=== PATIENT | male | born 1960 | race Caucasian/White ===

== ENCOUNTER 2018-10-17 09:26 | Observation (INO) | payer BC ==
[2018-10-17] MEDS ORDERED: Nitroglycerin 0.4 MG TAB (25 Tab Bottle) ONE (09:54)
[2018-10-17 10:09] LABS: #Basophils 0.1 thou/uL (0.0-0.2); #Eosinphils 0.6 thou/uL (0.0-0.7); #Lymphocytes 1.9 thou/uL (1.20-3.40); #Monocytes 1.2 thou/uL (0.11-0.59); #Neutrophils 5.9 thou/uL (1.40-6.50); %Basophils 0.8 % (0.0-1.0); %Eosinophils 6.5 % (0.0-10.0); %Lymphocytes 19.7 % (21.0-51.0); %Monocytes 12.5 % (0.0-10.0); %Neutrophils 60.5 % (42.0-75.0); Hemoglobin 15.1 g/dL (14.0-18.0); Mean Corpuscular HGB CONC 34.5 g/dL (32.0-36.0); Mean Corpuscular Hemoglobin 29.5 pg (27.0-31.0); Mean Corpuscular Volume 85.5 fL (78.0-98.0); Mean Platelet Volume 7.3 fL (7.4-10.4); Platelet Count 187 thou/uL (130-400); RBC Distribution Width 11.5 % (11.5-14.5); Red Blood Cell (RBC) Count 5.12 mill/uL (4.70-6.10); White Blood Cell (WBC) Count 9.7 thou/uL (4.8-10.8)
--- NOTE | 2018-10-17 10:28 | RAD ---
PORTABLE UPRIGHT CHEST RADIOGRAPH: DATE: 10/17/2018. COMPARISON: 04/29/2016. HISTORY: Chest pain. FINDINGS: Thee is an old fracture of the left clavicle with prominent callus formation. There is a dual-lead t ransvenous pacing device inserted via left subclavian approach with leads overlying the region of the right atrium and the right ventricle. There is no pneumothorax, pleural fluid, focal consolidation, or alveolar edema. IMPRESSION: No acute findings. POS: TALAT
[2018-10-17 10:29] LABS: ALT (SGPT) 25 U/L (8-55); AST (SGOT) 22 U/L (5-34); Albumin 4.3 g/dL (3.5-5.0); Alkaline Phosphatase 101 U/L (40-150); Anion Gap 11 mmol/L (10-20); BUN (Urea Nitrogen) 20 mg/dL (8.4-25.7); Bilirubin, Total 1.1 mg/dL (0.2-1.2); CK (CPK) 305 U/L (30-200); Calc. Creatinine Clearance 0 mL/min (70-130); Calcium 10.4 mg/dL (7.8-10.44); Carbon Dioxide 24 mmol/L (22-29); Chloride 109 mmol/L (98-107); Estimated GFR-MDRD 82; Globulin 2.6 g/dL (2.4-3.5); Glucose 116 mg/dL (70-105); Potassium 4.5 mmol/L (3.5-5.1); Protein, Total 6.9 g/dL (6.0-8.3); Sodium 139 mmol/L (136-145)
[2018-10-17 10:33] LABS: CKMB 4.3 ng/mL (0-6.6); Troponin I Less than 0.010 ng/mL (< 0.028)
[2018-10-17 15:39] LABS: Troponin I Less than 0.010 ng/mL (< 0.028)
[2018-10-17] MEDS ORDERED: Nitroglycerin 0.4 MG TAB (25 Tab Bottle) PO PRN (16:31)
[2018-10-17] MEDS ORDERED: Calcium Carbonate 500 MG ChewTAB PO PRN (16:31)
[2018-10-17] MEDS ORDERED: Eucerin (Mineral Oil/Petrolatum,White) 30 gm Jar TOP PRN (16:31)
[2018-10-17] MEDS ORDERED: Ondansetron ODT 4 MG TAB PO PRN (16:31)
[2018-10-17] MEDS ORDERED: Bisacodyl 10 MG SUPP PR PRN (16:31)
[2018-10-17] MEDS ORDERED: Acetaminophen 325 MG TAB PO PRN (16:31)
[2018-10-17] MEDS ORDERED: Senokot S 8.6-50 MG TAB PO PRN (16:31)
[2018-10-17] MEDS ORDERED: Cepastat Lozenges 1 LOZ PO PRN (16:31)
[2018-10-17] MEDS ORDERED: Zolpidem Tartrate 5 MG TAB PO PRN (16:31)
[2018-10-17] MEDS ORDERED: Artificial Tears 18 DROP/0.9 ML EA EYE PRN (16:31)
[2018-10-17] MEDS ORDERED: Sodium Chloride 0.65% Nasal 44 ML BOT EA NARE PRN (16:31)
[2018-10-17] MEDS ORDERED: Loratadine 10 MG TAB PO PRN (16:31)
[2018-10-17] MEDS ORDERED: Loperamide HCl 2 MG CAP PO PRN (16:31)
[2018-10-17] MEDS ORDERED: hydrALAZINE 20 MG/ML VIAL SLOW IVP PRN (16:31)
[2018-10-17] MEDS ORDERED: Ondansetron PF 4 MG/2 ML Vial IVP PRN (16:31)
[2018-10-17] MEDS ORDERED: Bisacodyl 5 MG TAB PO PRN (16:31)
[2018-10-17] MEDS ORDERED: Diabetic Tussin 200 MG/10 ML UDCUP PO PRN (16:31)
[2018-10-17 17:06] VITALS: BMI 31.6
--- NOTE | 2018-10-17 18:04 | HP ---
PRIMARY CARE PHYSICIAN: Marcus Chaparro MD REASON FOR ADMISSION: Chest pain. HISTORY OF PRESENT ILLNESS: A 58-year-old with past medical history of mild coronary artery disease, hypertension, who presented to the emergency room with a complaint of 1-week history of intermittent chest pain. He describes chest pain on left side 9/10 in intensity associated with nausea, vomiting, and shortness of breath. He denies any associated diaphoresis. Each time, he does not get a nausea and vomiting, but his associated symptoms is variable. He also reports that association with food, respiration on activity is also variable. Sometimes, he gets chest pain with radiation and sometimes without. He does not have any consistent pattern of chest pain. This patient denies any associated palpitation or dizziness. He was having diarrhea this morning. He denies any syncope. He denies any exertion related chest pain, palpitation, or shortness of breath. The patient reports that at normal pace, he is able to walk without any limitation. He cannot do any faster walking because of arthritis in his knee. He denies any orthopnea, PND, or leg swelling. The patient was given nitroglycerin and that helped his pain from 9 to 2 intensity of pain. When I saw this patient in the emergency room, he was completely chest pain free. He denies any fever. He denies any cough. He denies any flu-like symptoms. He denies any musculoskeletal pain. REVIEW OF SYSTEMS: CONSTITUTIONAL: Negative for weight loss or gain, ability to conduct usual activities. SKIN: Negative for rash, itching. EYES: Negative for double vision, pain. ENT/MOUTH: Negative for nose bleeding, neck stiffness, pain, tenderness. CARDIOVASCULAR: Negative for palpitations, dyspnea on exertion, orthopnea. RESPIRATORY: Negative for shortness of breath, wheezing, cough, hemoptysis, fever or night sweats. GASTROINTESTINAL: Negative for poor appetite, abdominal pain, heartburn, nausea, vomiting, constipation, or diarrhea. GENITOURINARY: Negative for urgency, frequency, dysuria, nocturia. MUSCULOSKELETAL: Negative for pain, swelling. NEUROLOGIC/PSYCHIATRIC: Negative for anxiety, depression. ALLERGY/IMMUNOLOGIC: Negative for skin rash, bleeding tendency. Please see my HPI for pertinent positive and negative. All other review of system reviewed and negative except as mentioned in HPI. PAST MEDICAL HISTORY: History of hypertension, history of atrial arrhythmia required pacemaker, history of tobacco abuse disorder, mild coronary artery disease, history of GI bleed in past, emphysema, and dyslipidemia. PAST SURGICAL HISTORY: The patient had right total knee replacement. The patient also had shoulder surgery, upper endoscopy, cardiac catheterization, and pacemaker. PAST PSYCHIATRIC HISTORY: Reviewed and negative. FAMILY HISTORY: Positive for coronary artery disease among several family members. No family history of cancer. SOCIAL HISTORY: The patient is occasional smoker. He used to be very heavy smoker 3 big pack per day, but since diagnosis of coronary artery disease, he tried to cut down and now he smokes only on weakened. He also drinks alcohol on weakened. He denies any other illicit drug abuse. He is . Lives at home with family. ALLERGIES: CODEINE. CURRENT HOME MEDICATIONS: 1. Bupropion 150 mg twice daily. 2. Flecainide 50 mg twice daily. 3. Lisinopril 10 mg daily. 4. Aspirin 81 mg twice daily. 5. Venlafaxine 150 mg p.o. daily. 6. Imdur 30 daily. 7. Naproxen p.r.n. basis. 8. Tylenol p.r.n. basis. EMERGENCY ROOM COURSE: The patient is given aspirin and nitroglycerin. PAST PSYCHIATRIC HISTORY: Anxiety, depression, bipolar disorder, and posttraumatic stress disorder. PHYSICAL EXAMINATION: VITAL SIGNS: Currently in the emergency room, blood pressure 115/77, pulse 83, respiratory rate 20, temperature 97.5, and saturation 94% on room air. Weight 108.8 kg. GENERAL: The patient is currently alert, awake, in no obvious acute distress. HEENT: Head, normocephalic atraumatic. Eyes; pupils are round and reactive to light. Extraocular muscles intact. ENT; Oropharynx within normal limit. Moist mucous membrane. No oral lesion. No pharyngeal erythema. No exudate. NECK: Supple. No JVD. No thyromegaly. No carotid bruits. No jugular venous distention. LUNGS: Clear to auscultation without any rhonchi or rales. CARDIAC: S1 and S2, regular. No murmur. No gallop. No rub. ABDOMEN: Soft. Bowel sounds present. Nontender, nondistended. No organomegaly. No mass. No suprapubic tenderness. BACK: Unremarkable. No CVA tenderness. EXTREMITIES: Upper extremity; passive movement of all joints are normal. Lower extremity; no edema. Good distal pulsation. SKIN: No skin rash. HEMATOLOGICAL SYSTEM: No lymphadenopathy. PSYCHIATRIC: Normal affect. SIGNIFICANT LABORATORY DATA: EKG showing normal sinus rhythm without any acute ischemic changes. Chest x-ray based on my review, no acute cardiopulmonary process. CBC; WBC 9.7, hemoglobin 15.1, and platelet 187. BMP; sodium 139, potassium 4.5, chloride 109, carbon dioxide 24, BUN 20, creatinine 0.94, glucose 116, and calcium 10.4. LFT; AST 22, ALT 25, alkaline phosphatase 101, and albumin 4.3. Cardiac enzymes negative. ASSESSMENT AND PLAN: 1. Chest pain. The patient's chest pain description is atypical. His EKG is not showing any ischemic changes and his cardiac enzymes are negative despite his chest pain recurrent for 1 week, most likely this patient has atypical chest discomfort. We need to rule out cardiac etiology and that is why he will need risk stratification with pharmacological stress test. This patient cannot do treadmill stress test because of arthritis and we need nuclear imaging because he has underlying pacemaker. This patient will have lipid profile checked tomorrow for further risk stratification. Meanwhile, we will continue aspirin 325 mg p.o. daily, nitroglycerin 0.4 mg sublingual p.r.n., and nitroglycerin patch q.8 hourly. If blood pressure permits, healthy lifestyle measure discussed with the patient. Depending upon stress test result, we will decide whether Cardiology needs to be consulted or not. If stress test is negative, then we will consider discharging him home tomorrow. 2. History of atrial arrhythmia with pacemaker. The patient is requesting to interrogate his pacemaker because he did not have any pacemaker checked for a period of time. We will call [employer] for his pacemaker interrogation. 3. Hypertension, currently well controlled. We will continue the patient's blood pressure medication while in the hospital after confirmation of his dose including lisinopril and Imdur. 4. History of arrhythmia. It is unclear whether he is still taking flecainide. Once we confirm his home medications, then we will continue this medication as well. 5. Anxiety and depression. Continue the patient's home medication, bupropion and venlafaxine after confirmation. 6. Tobacco abuse and alcohol abuse. Sound counseling given to avoid smoking and alcohol abuse. Healthy lifestyle measure discussed with the patient. 7. Deep venous thrombosis prophylaxis, not needed because we are expecting discharge in 24 hour. 8. Gastrointestinal prophylaxis, Pepcid 20 mg p.o. b.i.d. 9. Code status: The patient is full code. The patient's is surrogate decision making. 10. Disposition plan: Based on clinical course likely within 24 hours pending stress test result. Plan of care extensively discussed with the patient in detail. Job ID: [id number]
[2018-10-17 18:40] LABS: Troponin I Less than 0.010 ng/mL (< 0.028)
[2018-10-17] MEDS: HYDROcodone/Acetaminophen 5/325 mg Tablet PO PRN (19:53)
[2018-10-17] MEDS: Flecainide 50 MG TAB PO SCH (20:00)
[2018-10-17] MEDS: Bupropion 150 MG SR TAB PO SCH (20:00)
[2018-10-17] MEDS: Famotidine 20 MG TAB PO SCH (20:00)
[2018-10-17] MEDS: Lisinopril 10 MG TAB PO SCH (20:01)
[2018-10-17] MEDS: Nitroglycerin 2% Ointment 1 INCH/1 GM Packet TOP SCH (20:02)
[2018-10-17] MEDS ORDERED: Atorvastatin Calcium 40 MG TAB PO SCH (21:00)
[2018-10-18 05:52] LABS: Cardiac Risk 5.9 (Less than 4.5)
[2018-10-18] MEDS: Nitroglycerin 2% Ointment 1 INCH/1 GM Packet TOP SCH ×2 (06:56→14:17)
[2018-10-18] MEDS ORDERED: Aspirin 325 MG TAB PO SCH (09:00)
[2018-10-18] MEDS ORDERED: Aspirin 81 mg Enteric Coated Tablet PO SCH (09:00)
[2018-10-18] MEDS ORDERED: Venlafaxine HCl XR 150 MG CAP PO SCH (09:00)
--- NOTE | 2018-10-18 09:14 | PDOC.PN ---
- Subjective Encounter Start Date: 10/18/18 Encounter Start Time: 07:00 -: old records requested/rev Patient seen and examined. No new complaints. No overnight events - Objective Resuscitation Status - Order Detail: 10/17/18 15:14 Resuscitation Status Routine Resuscitation Status: FULL: Full Resuscitation MAR Reviewed: Yes Vital Signs & Weight: Vital Signs (12 hours) Temp Pulse Resp BP Pulse Ox 10/18/18 07:53 97.9 F 91 20 149/90 H 95 10/18/18 04:46 97.8 F 89 16 133/92 H 95 Weight Weight 240 lb 3.2 oz I&O: 10/17/18 10/18/18 10/19/18 06:59 06:59 06:59 Intake Total 440 Output Total 150 Balance 290 Result Diagrams: 10/17/18 09:49 10/17/18 09:49 Phys Exam - Physical Examination Constitutional: NAD HEENT: PERRLA, moist MMs, sclera anicteric Neck: no JVD, supple Respiratory: no wheezing, no rales, no rhonchi Cardiovascular: RRR, no significant murmur, no rub Gastrointestinal: soft, non-tender, no distention, positive bowel sounds Musculoskeletal: no edema, pulses present Neurological: non-focal, normal sensation, moves all 4 limbs Lymphatic: no nodes Psychiatric: normal affect, A&O x 3 Skin: no rash, normal turgor Dx/Plan (1) Chest pain Code(s): R07.9 - CHEST PAIN, UNSPECIFIED Status: Acute (2) Anxiety and depression Code(s): F41.9 - ANXIETY DISORDER, UNSPECIFIED; F32.9 - MAJOR DEPRESSIVE DISORDER, SINGLE EPISODE, UNSPECIFIED Status: Chronic (3) CAD (coronary artery disease) Code(s): I25.10 - ATHSCL HEART DISEASE OF [place] CORONARY ARTERY W/O ANG PCTRS Status: Chronic (4) Dyslipidemia Code(s): E78.5 - HYPERLIPIDEMIA, UNSPECIFIED Status: Chronic (5) HTN (hypertension) Code(s): I10 - ESSENTIAL (PRIMARY) HYPERTENSION Status: Chronic (6) Obesity (BMI 30.0-34.9) Code(s): E66.9 - OBESITY, UNSPECIFIED Status: Chronic (7) Tobacco abuse Code(s): Z72.0 - TOBACCO USE Status: Chronic - Plan cont current plan of care * today stress test, if negative will dc to home * continue home medication * medication reviewed as below * symptomatic treatment. Review of Systems - Review of Systems ENT: negative: Ear Pain, Ear Discharge, Nose Pain, Nose Discharge, Nose Congestion, Mouth Pain, Mouth Swelling, Throat Pain, Throat Swelling, Other Respiratory: negative: Cough, Dry, Shortness of Breath, Hemoptysis, SOB with Excertion, Pleuritic Pain, Sputum, Wheezing Cardiovascular: negative: chest pain, palpitations, orthopnea, paroxysmal nocturnal dyspnea, edema, light headedness, other Gastrointestinal: negative: Nausea, Vomiting, Abdominal Pain, Diarrhea, Constipation, Melena, Hematochezia, Other Genitourinary: negative: Dysuria, Frequency, Incontinence, Hematuria, Retention , Other Musculoskeletal: negative: Neck Pain, Shoulder Pain, Arm Pain, Back Pain, Hand Pain, Leg Pain, Foot Pain, Other Skin: negative: Rash, Lesions, Edson, Bruising, Other - Medications/Allergies Allergies/Adverse Reactions: Allergies Allergy/AdvReac Type Severity Reaction Status Date / Time No Known Allergies Allergy Verified 04/30/16 10:35 Medications: Current Medications Acetaminophen (Tylenol) 650 mg PO Q4H PRN PRN Reason: Headache/Fever/Mild Pain (1-3) Hydrocodone Bitart/Acetaminophen ([place] 5/325) 1 tab PO Q4H PRN PRN Reason: Moderate Pain (4-6) Last Admin: 10/17/18 19:53 Dose: 1 tab Artificial Tears (Tears Naturale) 2 drop EA EYE PRN PRN PRN Reason: Dry Eyes Aspirin (Aspirin) 325 mg PO DAILY [facility] Aspirin (Ecotrin) 81 mg PO DAILY [facility] Atorvastatin Calcium (Lipitor) 40 mg PO HS [facility] Last Admin: 10/17/18 20:00 Dose: 40 mg Bisacodyl (Dulcolax) 10 mg PO DAILYPRN PRN PRN Reason: Constipation Bisacodyl (Dulcolax) 10 mg DC DAILYPRN PRN PRN Reason: Constipation Bupropion HCl (Wellbutrin Sr) 150 mg PO BID [facility] Last Admin: 10/17/18 20:00 Dose: 150 mg Calcium Carbonate (Tums) 1,000 mg PO Q4H PRN PRN Reason: Heartburn or Indigestion Famotidine (Pepcid) 20 mg PO BID [facility] Last Admin: 10/17/18 20:00 Dose: 20 mg Flecainide Acetate (Tambocor) 50 mg PO BID [facility] Last Admin: 10/17/18 20:00 Dose: 50 mg Guaifenesin (Robitussin Sf) 200 mg PO Q4H PRN PRN Reason: Cough Hydralazine HCl (Apresoline) 10 mg SLOW IVP Q4H PRN PRN Reason: SBP > 180 and HR < 70 Lisinopril (Zestril) 10 mg PO BID [facility] Last Admin: 10/17/18 20:01 Dose: 10 mg Loperamide HCl (Imodium) 2 mg PO PRN PRN PRN Reason: Diarrhea/Loose Stools Loratadine (Claritin) 10 mg PO DAILYPRN PRN PRN Reason: Sinus Symptoms Mineral Oil/White Petrolatum (Eucerin Cream) 0 gm TOP BIDPRN PRN PRN Reason: Dry Skin Nitroglycerin (Nitrostat) 0.4 mg PO Q5MIN PRN PRN Reason: Chest Pain Nitroglycerin (Nitro-Bid 2% Ointment) 0.5 inch TOP Q8HR [facility] Last Admin: 10/18/18 06:56 Dose: Not Given Ondansetron HCl (Zofran Odt) 4 mg PO Q6H PRN PRN Reason: Nausea/Vomiting Ondansetron HCl (Zofran) 4 mg IVP Q6H PRN PRN Reason: Nausea/Vomiting Senna/Docusate Sodium (Senokot S) 2 tab PO BID PRN PRN Reason: Constipation Sodium Chloride ([place] Nasal [place] 0.65%) 0 ml EA NARE QIDPRN PRN PRN Reason: Nasal Congestion Throat Lozenges (Cepastat Lozenges) 1 alfredo PO Q2H PRN PRN Reason: Sore Throat Venlafaxine HCl (Effexor Xr) 150 mg PO DAILY [facility] Zolpidem Tartrate (Ambien) 5 mg PO HSPRN PRN PRN Reason: Insomnia
[2018-10-18] MEDS: Famotidine 20 MG TAB PO SCH (10:38)
[2018-10-18] MEDS: Lisinopril 10 MG TAB PO SCH (10:38)
[2018-10-18] MEDS: Flecainide 50 MG TAB PO SCH (10:39)
[2018-10-18] MEDS: Bupropion 150 MG SR TAB PO SCH (10:39)
[2018-10-18] MEDS: HYDROcodone/Acetaminophen 5/325 mg Tablet PO PRN (11:05)
--- NOTE | 2018-10-18 11:37 | NM ---
MYOCARDIAL PERFUSION EVALUATION: DATE: 10/18/18 INDICATION: History of chest pain and heart catheterization in 2016. Patient also has history of arrhythmia with pacemaker, hypertension, smoking, dyslipidemia, and family history of coronary artery disease. RADIOPHARMACEUTICAL: 30 mCi technetium-99m sestamibi IV was utilized with stress and 9.9 mCi technetium-99m sestamibi IV w as utilized with rest. FINDINGS: When comparing the rest and stress images, no reversible myocardial perfusion defect is evident. Ther e is normal wall motion and thickening. The estimated LVEF is 64%. IMPRESSION: No scintigraphic evidence of reversible myocardial ischemia. POS: TALAT
[2018-10-18 12:08] VITALS: BP 124/69; TEMP 98.1
--- NOTE | 2018-10-19 08:01 | DIS ---
DATE OF ADMISSION: 10/17/2018 DATE OF DISCHARGE: 10/18/2018 PRIMARY CARE PHYSICIAN: Marcus Chaparro MD. DISCHARGE DISPOSITION: Home. PRIMARY DISCHARGE DIAGNOSIS: Chest pain, ruled out acute coronary syndrome. SECONDARY DISCHARGE DIAGNOSES: 1. Anxiety and depression. 2. Coronary artery disease. 3. Dyslipidemia. 4. Obesity with BMI 31. 5. Tobacco abuse disorder. 6. History of pacemaker. PRIMARY PROCEDURE/OPERATION: None. RADIOLOGICAL INVESTIGATIONS: Stress test normal. Chest x-ray normal. SIGNIFICANT LABS: Hemoglobin 15.1. Creatinine 0.94. LDL 169. Cardiac enzyme negative. DISCHARGE MEDICATIONS: 1. Aspirin 81 mg p.o. daily. 2. Wellbutrin SR 150 mg p.o. b.i.d. 3. Tambocor 50 mg p.o. b.i.d. 4. Lisinopril 10 mg p.o. b.i.d. 5. Coenzyme Q10 one capsule daily. 6. Effexor XR 150 mg p.o. daily. 7. Lipitor 40 mg p.o. daily. 8. Imdur 30 mg p.o. daily. CONTRAINDICATION: None. CODE STATUS: Full code. INPATIENT SOA ARCHITECT: None. ALLERGIES: NO KNOWN DRUG ALLERGY. DISCHARGE PLAN: Posthospital, the patient will follow up with primary care physician in 1 week. HOSPITAL COURSE: A 58-year-old male, who was admitted by me. Please see my HPI for more details. The patient was admitted for chest pain. He was under observation status. He had all negative cardiac enzyme. His telemetry remained unremarkable. His LDL was elevated, and that is why we provided dietary education. He underwent stress test, which was negative for any ischemia. We continued all his previous medication. We advised him to avoid ibuprofen because our suspicion for his pain is possibly gastroesophageal reflux disease, and we advised him to take [id number] Pepcid, Prilosec, or Nexium. The patient is seen and examined at bedside today. Test result was discussed with him in detail. The patient is medically stable for discharge today. Job ID: [id number]
--- NOTE | 2018-10-20 12:24 | STRESS ---
Acquisition Time: 2018-10-18 09:14:33 Total Exercise Time: 00:04:00 Test Indications: CHEST PAIN Medications: Protocol: ADENOSINE Max HR: 090 BPM 56% of Pred: 160 BPM Max BP: 132/090 mmHG Max Work Load: 1.0 METS RESTING ECG: NORMAL SINUS RHYTHM AT 74 BPM WITH LEFT AXIS DEVIATION AND POOR R-WAVE PROGRESSION SYMPTOMS: SHORTNESS OF BREATH NORMAL BP RESPONSE ECTOPY: NONE ECG STRESS: NO SIGNIFICANT CHANGES INTERPRETATION: AWAIT NUCLEAR IMAGES FOR DEFINITIVE DIAGNOSIS Confirmed by MAYELA ARIAS ([id number]), purchasing expeditor KELIN DOVE ([id number]) on 10/20/2018 12:23:52 PM Referred By: MD Vashti MCCLELLAN Confirmed By:MAYELA ARIAS
== END 2018-10-18 16:00 | disposition home or self-care (01) ==
LOC: ERS 09:26 → INTOOBSV 14:15 → 2SW 14:15
PROVIDERS: ADMIT Internal Medicine; ATTEND Internal Medicine
DX: R07.89 Other chest pain (principal); I10 Essential (primary) hypertension; F41.8 Other specified anxiety disorders; E78.5 Hyperlipidemia, unspecified; E66.9 Obesity, unspecified; Z79.82 Long term (current) use of aspirin; Z79.899 Other long term (current) drug therapy; Z88.5 Allergy status to narcotic agent; Z68.31 Body mass index [BMI] 31.0-31.9, adult; Z95.0 Presence of cardiac pacemaker
CPT/HCPCS: 36415; 71045; 78452; 80053; 80061; 82553; 84484; 85025; 87804; 93005; 93017; A9500; G0378; J0153

== ENCOUNTER 2019-07-18 07:05 | Emergency (ER) | payer BC ==
[2019-07-18] MEDS ORDERED: Ketorolac Tromethamine 30 MG/ML VIAL ONE (07:35)
[2019-07-18] MEDS ORDERED: Ketorolac Tromethamine 30 MG/ML VIAL IM SCH (07:45)
[2019-07-18] MEDS ORDERED: Colchicine 0.6 MG TAB PO SCH (07:45)
== END 2019-07-18 08:21 | disposition home or self-care (01) ==
LOC: ERS 07:05
DX: M10.9 Gout, unspecified (principal); I10 Essential (primary) hypertension; F43.10 Post-traumatic stress disorder, unspecified; F31.9 Bipolar disorder, unspecified; F17.210 Nicotine dependence, cigarettes, uncomplicated; I49.9 Cardiac arrhythmia, unspecified
CPT/HCPCS: 96372; 99283; J1885

== ENCOUNTER 2019-09-02 10:48 | Emergency (ER) | payer BC ==
[2019-09-02 11:54] LABS: Hemoglobin 15.6 g/dL (14.0-18.0); Mean Corpuscular HGB CONC 33.6 g/dL (32.0-36.0); Mean Corpuscular Hemoglobin 29.7 pg (27.0-31.0); Mean Corpuscular Volume 88.1 fL (78.0-98.0); Mean Platelet Volume 7.3 fL (7.4-10.4); Platelet Count 147 thou/uL (130-400); Red Blood Cell (RBC) Count 5.28 mill/uL (4.70-6.10)
--- NOTE | 2019-09-02 12:03 | RAD ---
FRONTAL RADIOGRAPH CHEST PORTABLE UPRIGHT: Date: 09/02/19 COMPARISON: 10/17/18. HISTORY: Body aches with facial swelling. FINDINGS: Stable old left clavicle fracture and stable dual lead transvenous pacing device. No pneumothorax or pleural fluid. No focal consolidation or alveolar edema. IMPRESSION: No acute findings. Stable appearance of chest. POS: TPC
[2019-09-02 12:22] LABS: Anion Gap 13 mmol/L (10-20); BUN (Urea Nitrogen) 20 mg/dL (8.4-25.7); Calc. Creatinine Clearance 0 mL/min (70-130); Carbon Dioxide 22 mmol/L (23-31); Chloride 104 mmol/L (98-107); Estimated GFR-MDRD 82; Glucose 121 mg/dL (80-115); Potassium 3.8 mmol/L (3.5-5.1); Sodium 135 mmol/L (136-145)
[2019-09-02 12:23] LABS: ALT (SGPT) 25 U/L (8-55); AST (SGOT) 23 U/L (5-34); Albumin 4.1 g/dL (3.4-4.8); Alkaline Phosphatase 85 U/L (40-110); Globulin 3.4 g/dL (2.4-3.5); Protein, Total 7.5 g/dL (5.8-8.1)
[2019-09-02 12:29] LABS: Bacteria/HPF None Seen HPF (None Seen); Bilirubin Negative (Negative); Blood, Urine Trace (Negative); Clarity Clear (Clear); Glucose, Urine (Dipstick) Normal (Negative); Leukocyte Negative Leu/uL (Negative); Nitrite Negative (Negative); Protein, Urine (Dipstick) 20 mg/dL (Neg-Trace); Squamous Epithelial 0-3 HPF (0-3)
[2019-09-02 12:38] LABS: Band 13 % (5-11); Lymphocytes 15 % (21-51); MDiff Complete? YES; Monocytes 11 % (0-10); Neutrophil 55 % (42-75); RBC Morphology Normal; Reactive Lymphocytes 5 % (0-10)
== END 2019-09-02 13:44 | disposition home or self-care (01) ==
LOC: ERS 10:48
DX: J01.90 Acute sinusitis, unspecified (principal); R65.10 Systemic inflammatory response syndrome (SIRS) of non-infectious origin without acute organ dysfunction; I49.9 Cardiac arrhythmia, unspecified; I10 Essential (primary) hypertension; F43.10 Post-traumatic stress disorder, unspecified; F31.9 Bipolar disorder, unspecified; F17.210 Nicotine dependence, cigarettes, uncomplicated; Z79.899 Other long term (current) drug therapy
CPT/HCPCS: 36415; 71045; 80053; 81003; 81015; 83605; 85025; 87040; 87086; 87149; 96365; 96366; J1956

== ENCOUNTER 2019-10-19 12:30 | Emergency (ER) | payer BC ==
[2019-10-19] MEDS ORDERED: traMADol HCl 50 MG TAB ONE (14:17)
--- NOTE | 2019-10-19 14:31 | RAD ---
LEFT FOOT 3 VIEWS: HISTORY: Left foot pain. FINDINGS/IMPRESSION: No fracture, subluxation, or bony destruction is seen. There are plantar and posterior calcaneal spu rs. POS: LAH
--- NOTE | 2019-10-19 14:31 | RAD ---
XR Hip Lt 2-3 View INDICATION: Chronic left hip pain COMPARISON: None FINDINGS: Bones: No acute fracture or subluxation seen involving the left hip. Hip joint: Mild left hip osteoarthrosis. SI joints and symphysis pubis: Curvilinear lucency involving inferior pubic ramus on the right is lik jim projectional in nature. No definite fracture is evident. Intrapelvic contents: Visualized bowel gas pattern is within normal limits. Surrounding soft tissues: Radiographically normal. IMPRESSION: 1. Mild left hip osteoarthrosis.
== END 2019-10-19 15:38 | disposition home or self-care (01) ==
LOC: ERS 12:30
DX: M16.12 Unilateral primary osteoarthritis, left hip (principal); M79.672 Pain in left foot; I10 Essential (primary) hypertension; Z87.891 Personal history of nicotine dependence; F31.9 Bipolar disorder, unspecified; F43.10 Post-traumatic stress disorder, unspecified; Z79.899 Other long term (current) drug therapy

== ENCOUNTER 2019-11-14 03:35 | Emergency (ER) | payer BC ==
--- NOTE | 2019-11-14 07:43 | RAD ---
EXAM: 3 views of the left ankle HISTORY: Ankle pain after fall COMPARISON: None FINDINGS: 3 views of the left ankle shows no evidence of acute fracture or dislocation. Moderate diff use soft tissue swelling is seen. No degenerative changes are present. IMPRESSION: No evidence of acute osseous abnormality.
== END 2019-11-14 04:40 | disposition home or self-care (01) ==
LOC: ERS 03:35
DX: S93.402A Sprain of unspecified ligament of left ankle, initial encounter (principal); I49.9 Cardiac arrhythmia, unspecified; I10 Essential (primary) hypertension; F31.9 Bipolar disorder, unspecified; F43.10 Post-traumatic stress disorder, unspecified; F17.210 Nicotine dependence, cigarettes, uncomplicated; Z79.899 Other long term (current) drug therapy; W18.2XXA Fall in (into) shower or empty bathtub, initial encounter

== ENCOUNTER 2019-11-15 16:22 | Emergency (ER) | payer BC ==
[2019-11-15 18:50] LABS: #Basophils 0.1 thou/uL (0.0-0.2); #Eosinphils 0.7 thou/uL (0.0-0.7); #Lymphocytes 2.4 thou/uL (1.20-3.40); #Neutrophils 3.4 thou/uL (1.40-6.50); %Basophils 1.1 % (0.0-1.0); %Eosinophils 8.9 % (0.0-10.0); %Lymphocytes 31.7 % (21.0-51.0); %Monocytes 13.4 % (0.0-10.0); %Neutrophils 44.8 % (42.0-75.0); Hemoglobin 13.4 g/dL (14.0-18.0); Mean Corpuscular HGB CONC 35.3 g/dL (32.0-36.0); Mean Corpuscular Hemoglobin 29.5 pg (27.0-31.0); Mean Corpuscular Volume 83.7 fL (78.0-98.0); Mean Platelet Volume 7.8 fL (7.4-10.4); Platelet Count 150 thou/uL (130-400); RBC Distribution Width 12.4 % (11.5-14.5); Red Blood Cell (RBC) Count 4.53 mill/uL (4.70-6.10); White Blood Cell (WBC) Count 7.6 thou/uL (4.8-10.8)
[2019-11-15] MEDS ORDERED: Lidocaine 1% (PF) 30 ML VIAL ONE (18:59)
[2019-11-15 19:11] LABS: ALT (SGPT) 21 U/L (8-55); AST (SGOT) 24 U/L (5-34); Albumin 3.9 g/dL (3.4-4.8); Alkaline Phosphatase 114 U/L (40-110); Anion Gap 12 mmol/L (10-20); BUN (Urea Nitrogen) 19 mg/dL (8.4-25.7); Bilirubin, Total 0.6 mg/dL (0.2-1.2); Calc. Creatinine Clearance 0 mL/min (70-130); Calcium 9.8 mg/dL (7.8-10.44); Carbon Dioxide 23 mmol/L (23-31); Chloride 110 mmol/L (98-107); Estimated GFR-MDRD 76; Globulin 2.6 g/dL (2.4-3.5); Glucose 103 mg/dL (80-115); Potassium 3.8 mmol/L (3.5-5.1); Protein, Total 6.5 g/dL (5.8-8.1); Sodium 141 mmol/L (136-145)
--- NOTE | 2019-11-15 19:47 | ULT ---
LEFT LOWER EXTREMIT VENOUS ULTRASOUND: History: Left lower extremity edema. Technique: Multiplanar grayscale and color doppler images are performed in a left lower extremity kierra ous ultrasound. Spectral analysis with doppler waveforms were performed. FINDINGS: The left common femoral vein, profunda femoral vein, superficial femoral vein, and popliteal vein are normal in appearance without visible thrombus. These vessels demonstrate normal compression, flow, a nd augmentation. The posterior tibial vein and greater saphenous vein are also patent. IMPRESSION: No evidence of DVT. POS: C
== END 2019-11-15 20:01 | disposition home or self-care (01) ==
LOC: ERS 16:22
DX: M25.572 Pain in left ankle and joints of left foot (principal); G89.29 Other chronic pain; I49.9 Cardiac arrhythmia, unspecified; I10 Essential (primary) hypertension; F31.9 Bipolar disorder, unspecified; F43.10 Post-traumatic stress disorder, unspecified; F17.210 Nicotine dependence, cigarettes, uncomplicated; Z79.899 Other long term (current) drug therapy
CPT/HCPCS: 20605; 36415; 80053; 85025; 85379; 85652; 86140; 87070; 87205; J2001

== ENCOUNTER 2019-12-08 14:11 | Inpatient (IN) | payer BC ==
[2019-12-08 14:49] LABS: #Basophils 0.1 thou/uL (0.0-0.2); #Eosinphils 0.5 thou/uL (0.0-0.7); #Lymphocytes 2.1 thou/uL (1.20-3.40); #Monocytes 1.2 thou/uL (0.11-0.59); #Neutrophils 5.7 thou/uL (1.40-6.50); %Eosinophils 5.5 % (0.0-10.0); %Lymphocytes 21.6 % (21.0-51.0); %Monocytes 12.2 % (0.0-10.0); %Neutrophils 59.7 % (42.0-75.0); Mean Corpuscular HGB CONC 32.8 g/dL (32.0-36.0); Mean Corpuscular Hemoglobin 28.6 pg (27.0-31.0); Mean Platelet Volume 7.9 fL (7.4-10.4); Platelet Count 165 thou/uL (130-400); RBC Distribution Width 12.8 % (11.5-14.5); White Blood Cell (WBC) Count 9.6 thou/uL (4.8-10.8)
--- NOTE | 2019-12-08 15:01 | CT ---
CT HEAD WITHOUT CONTRAST: Date: 12/08/2019 COMPARISON: None. HISTORY: Aphasia, facial droop, difficulty swallowing, and difficulty driving. TECHNIQUE: Axial CT imaging at 5 mm intervals from vertex through skull base without contrast. FINDINGS: There is a conspicuous focal area of hypodensity measuring 2.1 cm just superior to and lateral to the caudate head on the left abutting the frontal horn of the left lateral ventricle. No associated hemo rrhage. No midline shift. Imaged paranasal sinuses/mastoid air cells appear well aerated. No displace d calvarial fracture. IMPRESSION: Focal area of hypodensity anteriorly on the left most likely on the basis of acute/subacute infarctio n. Brain MRI is advised for confirmation and to exclude an underlying brain mass lesion. CODE T. POS: TALAT
[2019-12-08 15:11] LABS: ALT (SGPT) 41 U/L (8-55); AST (SGOT) 24 U/L (5-34); Alkaline Phosphatase 86 U/L (40-110); Anion Gap 11 mmol/L (10-20); BUN (Urea Nitrogen) 23 mg/dL (8.4-25.7); Bilirubin, Total 0.8 mg/dL (0.2-1.2); Calc. Creatinine Clearance 0 mL/min (70-130); Calcium 9.8 mg/dL (7.8-10.44); Carbon Dioxide 25 mmol/L (23-31); Chloride 108 mmol/L (98-107); Estimated GFR-MDRD 60; Glucose 97 mg/dL (80-115); Potassium 3.8 mmol/L (3.5-5.1); Sodium 140 mmol/L (136-145)
[2019-12-08] MEDS ORDERED: HYDROcodone/Acetaminophen 5/325 mg Tablet PO PRN ×2 (17:36)
[2019-12-08] MEDS ORDERED: Ondansetron PF 4 MG/2 ML Vial IVP PRN ×2 (17:36→20:39)
[2019-12-08] MEDS ORDERED: Sodium Chloride 0.9% 1,000 ML IV SCH (17:36)
[2019-12-08] MEDS ORDERED: Acetaminophen 325 MG TAB PO PRN (17:36)
[2019-12-08] MEDS ORDERED: Ondansetron ODT 4 MG TAB SL PRN (17:36)
[2019-12-08] MEDS ORDERED: Aspirin Chewable 81 MG TAB ONE (17:37)
[2019-12-08] MEDS ORDERED: Ondansetron ODT 4 MG TAB PO PRN (20:39)
[2019-12-08] MEDS ORDERED: Senokot S 8.6-50 MG TAB PO PRN (20:39)
[2019-12-08] MEDS ORDERED: Guaifenesin DM 100-10/5 ML UDCUP PO PRN (20:39)
[2019-12-08] MEDS ORDERED: hydrALAZINE 20 MG/ML VIAL SLOW IVP PRN (20:39)
[2019-12-08] MEDS ORDERED: Acetaminophen 650 MG Suppository PR PRN (20:39)
[2019-12-08] MEDS ORDERED: Labetalol HCl 100 MG/20 ML VIAL SLOW IVP PRN (20:39)
[2019-12-08] MEDS ORDERED: Pantoprazole 40 MG VIAL IVP SCH (21:00)
[2019-12-08] MEDS: Atorvastatin Calcium 40 MG TAB PO SCH (21:43)
[2019-12-08] MEDS: Famotidine/PF 20 mg/2ml Vial SLOW IVP SCH (21:44)
--- NOTE | 2019-12-08 21:54 | HP ---
PRIMARY CARE PHYSICIAN: Dr. Chaparro. CHIEF COMPLAINT: Chest pain and slurred speech. HISTORY OF PRESENT ILLNESS: This is a 59-year-old white male with a known history of hypertension; previous atrial arrhythmias, requiring flecainide and pacemaker; and coronary artery disease, who was frustrated by these medications causing impotence and by happening to take so many medicines every day, so he stopped taking medicines for the last year and has not seen Dr. Dimas in the last year as well. He started feeling kind of bad for the last 5 to 7 days, and then 2 days prior to admission, he started developing some slurred speech. He when saw his ex-, who noticed that he was slurring in his speech and that he seemed to be having a little bit of droop on his face. He noticed some though his left side, left arm, left leg feeling a little funny and feeling weaker than normal. The patient was also feeling pretty groggy and almost fell asleep at the wheel when he was driving home from work. The next day, he did refuse to go to the hospital; at that time, his ex- brought him up, and then yesterday, he started having some chest pains as well, on and off, lasting about 2 hours each time, squeezing chest pain just to the left of the lower sternum without any radiation, seems to be worse with lying down and better with sitting up. Then today, eventually, he decided to come into the emergency room after finishing up work today. In the ER, the patient had a CT scan, which showed an acute stroke. He had a negative EKG and negative cardiac markers as well, and he is being admitted for acute stroke. He is not have any current chest pain at this time. PAST MEDICAL HISTORY: 1. Hypertension. 2. Atrial arrhythmias, possibly atrial fibrillation alternating with bradycardia, requiring a pacemaker. 3. Mild coronary artery disease. 4. Possible history of previous GI bleed, though he states that he has really just pain in his midepigastric region and that he was told to drink milk and then would not go away. He does not ever remember vomiting any blood or having blood in his stool. 5. Emphysema. 6. Dyslipidemia. PAST SURGICAL HISTORY: 1. Right total knee replacement. 2. Shoulder surgery. 3. Upper endoscopy. 4. Cardiac catheterization. 5. Pacemaker placement. SOCIAL HISTORY: The patient used to smoke 3 packs per day, but for the last few years, he has just smoked about a half pack on the weekend only. He does not currently drink any alcohol. Used to drink some on the weekends. No illicit drugs. He is , but states that his ex-, Beatrice Quesada, would still be his medical decision maker. ALLERGIES: NO KNOWN DRUG ALLERGIES. CURRENT MEDICATIONS: None. Previously was on lisinopril, flecainide, and aspirin along with some other medications. He did state that he restarted lisinopril 10 mg daily about 2 days ago when he started feeling bad. REVIEW OF SYSTEMS: CONSTITUTIONAL: No fevers. No chills. He has had about 20-pound weight gain over the last few months. EYES: No double vision or blurred vision. ENT: No congestion, drainage, or sore throat. CARDIOVASCULAR: See HPI. No palpitations that he has noticed. No significant lower extremity edema. PULMONARY: He has not had any coughing or wheezing. A little bit of short of breath with activity recently. GASTROINTESTINAL: The patient denies any abdominal pain. He has not had any nausea or vomiting. No diarrhea or constipation. He does report that he has had some acid reflux symptoms, worse since he stopped taking Prilosec over the last year and worse when he lays down flat. GENITOURINARY: No dysuria or hematuria. MUSCULOSKELETAL: The patient has chronic pain from his bilateral legs, especially his right knee where he had the knee replacement. In his left ankle, he is supposed to have surgery on that with Ortho sometime soon. SKIN: No rashes or lesions noted. NEUROLOGIC: See HPI. PHYSICAL EXAMINATION: VITAL SIGNS: Blood pressure 155/98, pulse 80, respirations 20, temperature 98.5, and O2 saturation 95% on room air. GENERAL: Well-developed, obese white male, in no acute distress. HEENT: Pupils are equal, round, and reactive to light. Oropharynx, clear without lesions, erythema, or exudate. NECK: Supple. No lymphadenopathy. No thyroid nodules or enlargement. No JVD. HEART: Regular rate and rhythm. No murmurs, rubs, or gallops. LUNGS: Clear to auscultation bilaterally. No wheezes, crackles, or rhonchi. ABDOMEN: Soft, obese, nontender to palpation. Normoactive bowel sounds. No hepatosplenomegaly or other masses. EXTREMITIES: No clubbing, cyanosis, or edema. SKIN: No rashes or lesions noted. NEUROLOGIC: The patient has slightly decreased sensation in the left side of his face, left upper and left lower extremity, though he can feel things some. He has very mild left facial droop and some mild slurring of his speech. Occasionally he has trouble finding word. He has decent strength in the left upper extremity, possibly slightly decreased and some decreased coordination, and he has some about 4.5/5 strength in his left lower extremity, significantly weaker than his right lower extremity. LABORATORY DATA: CBC within normal limits. Complete metabolic panel within normal limits. Troponin negative. EKG shows normal sinus rhythm without any significant ST-segment changes or significant arrhythmias. I do review the CT of the brain along with the radiologist's report, does show a hypodense lesion anteriorly on the left, consistent with acute/subacute infarction. ASSESSMENT: 1. Acute ischemic stroke. The patient has been given a dose of aspirin in emergency room. We will continue this. His stroke may be due to cerebrovascular versus an episode of atrial fibrillation with embolism. He is currently in normal sinus rhythm. The patient may end up requiring chronic anticoagulation. We will leave that up to Cardiology, who we will consult for the morning. I have talked to the patient extensively about the need to restart his medicines and to take them regularly, and he has agreed that he needs to start doing that. We will go ahead and put him on atorvastatin right now, and then in the future, he will need back on blood pressure medication. For now, we will allow compensatory hypertension. 2. Chest pain, possibly cardiac versus due to his gastroesophageal reflux disease. We will put him on telemetry monitoring. We will recheck troponins, and we will keep the patient on an aspirin daily. We will start him on Protonix. 3. Gastroesophageal reflux disease. We will put the patient on Protonix daily. 4. Hypertension. We will allow compensatory hypertension right now, and we will resume antihypertensives over the next week. 5. Hyperlipidemia. We will start atorvastatin. 6. Code status: I did discuss this with the patient at length. He states he is a [id number] resuscitation. Should he be incapacitated, his ex- would be his medical decision maker, her name is Beatrice Quesada, as well as his son, Ike Quesada. Job ID: [id number]
[2019-12-08 22:35] VITALS: BMI 34.1
[2019-12-09] MEDS ORDERED: Morphine 2 MG/ML SYRINGE SLOW IVP SCH (04:00)
[2019-12-09 04:54] LABS: #Basophils 0.1 thou/uL (0.0-0.2); #Eosinphils 0.5 thou/uL (0.0-0.7); #Lymphocytes 1.9 thou/uL (1.20-3.40); #Monocytes 0.9 thou/uL (0.11-0.59); #Neutrophils 4.5 thou/uL (1.40-6.50); %Basophils 1.1 % (0.0-1.0); %Eosinophils 6.9 % (0.0-10.0); Hemoglobin 14.2 g/dL (14.0-18.0); Mean Corpuscular HGB CONC 33.4 g/dL (32.0-36.0); Mean Corpuscular Volume 86.9 fL (78.0-98.0); Mean Platelet Volume 7.5 fL (7.4-10.4); Platelet Count 158 thou/uL (130-400); RBC Distribution Width 12.7 % (11.5-14.5); Red Blood Cell (RBC) Count 4.89 mill/uL (4.70-6.10); White Blood Cell (WBC) Count 7.9 thou/uL (4.8-10.8)
[2019-12-09 05:16] LABS: Anion Gap 11 mmol/L (10-20); BUN (Urea Nitrogen) 17 mg/dL (8.4-25.7); Calc. Creatinine Clearance 165 mL/min (70-130); Calcium 9.7 mg/dL (7.8-10.44); Carbon Dioxide 24 mmol/L (23-31); Chloride 108 mmol/L (98-107); Cholesterol 272 mg/dl (< 200 Desired); Estimated GFR-MDRD Greater than 90; Glucose 102 mg/dL (80-115); HDL Cholesterol 39 mg/dL (>60 Neg Risk); LDL Cholesterol, Calculated 196 mg/dL; Potassium 3.9 mmol/L (3.5-5.1); Sodium 139 mmol/L (136-145); Triglycerides 185 mg/dL (Less than 150)
--- NOTE | 2019-12-09 08:54 | PDOC.HOSPP ---
- Subjective Encounter Date: 12/09/19 Encounter Time: 13:00 Subjective: Patient without change in numbness, weakness, slurred speech symptoms. One episode of squeezing chest pain relieved with Morphine overnight. Failed swallow study with ST today. - Objective Vital Signs & Weight: Vital Signs (12 hours) Temp Pulse Resp BP Pulse Ox 12/09/19 07:28 98.3 F 71 20 135/84 96 12/09/19 04:03 78 154/95 H 12/09/19 04:00 97.6 F 24 H 94 L 12/09/19 00:00 98.1 F 85 18 167/93 H 97 Weight Weight 258 lb 11.2 oz Result Diagrams: 12/09/19 04:31 12/09/19 04:31 Hospitalist ROS - Review of Systems Constitutional: denies: fever, chills Respiratory: denies: cough, shortness of breath Cardiovascular: denies: palpitations, orthopnea Gastrointestinal: denies: nausea, vomiting, abdominal pain Genitourinary: denies: dysuria, hematuria Neurological: reports: weakness, numbness, change in speech - Medication Medications: Active Medications Generic Name Dose Route Start Last Admin Trade Name Freq PRN Reason Stop Dose Admin Atorvastatin Calcium 40 mg 12/08/19 21:00 12/08/19 21:43 Lipitor PO Not Given HS MAURICE Famotidine 20 mg 12/08/19 21:00 12/08/19 21:44 Pepcid SLOW IVP Not Given Q12HR [facility] - Exam General Appearance: NAD, awake alert ENT: moist mucosa Heart: RRR, no murmur, no gallops, no rubs Respiratory: CTAB, no wheezes, no rales, no ronchi Gastrointestinal: soft, non-tender, non-distended, normal bowel sounds Psychiatric: normal affect, normal behavior, A&O x 3 Hosp A/P (1) Acute ischemic stroke Code(s): I63.9 - CEREBRAL INFARCTION, UNSPECIFIED Status: Acute (2) Chest pain Code(s): R07.9 - CHEST PAIN, UNSPECIFIED Status: Resolved (3) CAD (coronary artery disease) Code(s): I25.10 - ATHSCL HEART DISEASE OF [place] CORONARY ARTERY W/O ANG PCTRS Status: Chronic (4) Atrial arrhythmia Code(s): I49.8 - OTHER SPECIFIED CARDIAC ARRHYTHMIAS Status: Chronic (5) Dyslipidemia Code(s): E78.5 - HYPERLIPIDEMIA, UNSPECIFIED Status: Chronic (6) HTN (hypertension) Code(s): I10 - ESSENTIAL (PRIMARY) HYPERTENSION Status: Chronic (7) Obesity (BMI 30.0-34.9) Code(s): E66.9 - OBESITY, UNSPECIFIED Status: Chronic (8) Tobacco abuse Code(s): Z72.0 - TOBACCO USE Status: Chronic (9) GERD (gastroesophageal reflux disease) Code(s): K21.9 - GASTRO-ESOPHAGEAL REFLUX DISEASE WITHOUT ESOPHAGITIS Status: Acute (10) Dysphagia Code(s): R13.10 - DYSPHAGIA, UNSPECIFIED Status: Acute - Plan PT/OT/ST ASA Statin Neuro and Cardio consults Consider anticoagulation MRI, ECHO, Carotid dopplers pending MBS tomorrow, NPO except sips of water, ice chips, and meds DVT proph: Lovenox GI proph: PPI
[2019-12-09] MEDS: Famotidine/PF 20 mg/2ml Vial SLOW IVP SCH ×2 (09:24→22:12)
[2019-12-09] MEDS: Aspirin 81 mg Enteric Coated Tablet PO SCH (09:25)
[2019-12-09] MEDS: Enoxaparin Sodium 40 MG/0.4 ML SYRINGE SC SCH (09:25)
[2019-12-09] MEDS: Acetaminophen 325 MG TAB PO PRN (09:32)
--- NOTE | 2019-12-09 11:58 | ULT ---
BILATERAL CAROTID DUPLEX ULTRASOUND INCLUDING COLOR AND SPECTRAL DOPPLER IMAGING: HISTORY: Acute stroke. FINDINGS: Very mild intimal thickening. PSV RIGHT ICA: 92 cm per second. EDV: 9 cm per second ICA/CCA RATIO: 1.0 PSV LEFT ICA: 102 cm per second EDV: 34 cm per second ICA/CCA RATIO: 1.1 Antegrade vertebral flow. IMPRESSION: No hemodynamically significant stenosis. POS: OFF
[2019-12-09] MEDS ORDERED: Clopidogrel Bisulfate 75 MG TAB PO SCH (15:45)
--- NOTE | 2019-12-09 17:07 | MRI ---
EXAM: BRAIN MRI WITHOUT IV CONTRAST: 12/09/19 HISTORY: Stroke. Slurred speech. Multiplanar and multisequence MRI examination of the brain is performed. There is some atrophy and ch ronic white matter ischemic changes noted bilaterally. Sinus mucosal change is noted within the ethmo id and left maxillary sinus. There is a focal area of abnormal diffusion in the left periventricular region measuring approximately 1.6 x 2.9 cm with restricted diffusion and abnormal ADC map, evidence for acute infarct. There is no focal mass or midline shift. No intra or extra-axial hemorrhage. Scat tered areas of chronic white matter ischemic change are noted. IMPRESSION: 1. Focal area of acute infarct in the left periventricular region. 2. Minimal atrophy and scattered chronic white matter ischemic change. 3. Sinus mucosal changes. 4. No mass or hemorrhage. POS: OFF
--- NOTE | 2019-12-09 18:30 | CON ---
DATE OF CONSULTATION: 12/09/2019 INDICATION FOR CONSULTATION: A 59-year-old patient, who presented with stroke- like symptoms. He then actually had complained of some chest discomfort. We were asked to see him due to the chest discomfort. The first time I saw Mr. Quesada was back in I believe 2012, at which time, he had also complained of some chest discomfort. He continues to smoke. He has smoked for many years. He also has a history of hypercholesterolemia. He eventually underwent cardiac catheterization as well as pacemaker insertion. He said he had some significant problems with passing out or dizziness. He started with a Reveal monitor, which did show episodes of bradycardia and then, he eventually had pacemaker insertion. The pacemaker function has been found to be normal. He has not been seen in the office for about three or four years. He says he has not had a finances to do so. He also eventually underwent cardiac catheterization due to repeated complaints of chest pain at the time of the cardiac catheterization. This was performed I believe in 2015, at which time, his ejection fraction was 50% to 55% and he had mild stenosis in the proximal right coronary artery about 20%. Since that time, he has been relatively stable. He did present this time and he said that he had some chest discomfort, which has been ongoing problem for him. Enzymes are negative. EKG does not show any acute changes. He does have some decreased R-wave progression in V1 and V2, but this appears to be just his normal. He had apparently presented to his ex-'s house a couple days ago saying that he was not feeling well and also she notes he has some mild little left-sided facial droop. She brought him to the emergency room, where he underwent a CT scan of the brain and was found to have what appeared to be a probable CVA in the left lateral caudate area of the frontal horn. Otherwise, this is some type of focal hypodensity. An MRI was advised. It was felt to be most likely due to an acute or subacute infarction. He seems to have recovered most of this. He still says he cannot find words, but he has had some psychologic problems in the past. At the time, I saw him, he reported having two suicide attempts, one by gunshot and one by ingesting pills. He said this was because his ex- had left him, he became very upset about this. He had been on multiple medications and recently just stopped taking all of these medications. At this time, he denies any chest pain to me. He seems to be quite stable. PAST MEDICAL HISTORY: His past medical history is significant for mild coronary artery disease involving only 20% stenosis of the right coronary artery, dyslipidemia, hypertension, and status post pacemaker insertion. He has had syncopal episodes in the past and this eventually ended up with a pacemaker, some history of paroxysmal atrial fibrillation. He has had a right knee repairs and colon polyps removed. He has had actually GI bleed history in the past. ALLERGIES: HE SAYS HE IS ALLERGIC TO CODEINE. FAMILY HISTORY: Noncontributory. SOCIAL HISTORY: He is from his . Apparently, he continues to smoke. 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 REVIEW OF SYSTEMS: Relatively unremarkable except for what was noted in the history of present illness. PHYSICAL EXAMINATION: GENERAL: Reveals a well-developed, well-nourished gentleman, who is in no acute distress at this time. He is alert. He is oriented. I do not see any gross focal motor deficit associated with this previous or recent stroke. VITAL SIGNS: His blood pressure is elevated at 152/87, earlier it was 135/84, has been as high this afternoon as 157/93. Heart rate is in the 70s to 80s and shows a sinus rhythm. I believe he was having some atrial pacing and ventricular tracking. He is afebrile. Respiratory rate is about 18. HEENT: Shows the head to be normocephalic and atraumatic. NECK: Carotid pulses are present. I did not hear any bruits. CHEST: Clear to auscultation without rales, rhonchi, or wheezing. He has a tattoo over the left anterior chest wall and he has a pacemaker insertion of the left anterior chest. Also, all this appears to be normal. ABDOMEN: Soft and nontender. Positive bowel sounds are present. EXTREMITIES: Show no clubbing, cyanosis, or edema. Pedal pulses are present. NEUROLOGIC: The patient appears to be intact to me at this time. We will defer all that to the neurologist for their evaluation. DIAGNOSTIC DATA: His EKG was unremarkable for any acute changes. He had an echocardiogram previously also, which showed a normal ejection fraction and normal valvular structures with only mild aortic and mitral valve regurgitation. I believe a repeat echocardiogram is pending. LABORATORY DATA: His laboratory data showed a WBC of 7.9, hemoglobin 14.2, and platelet count 158,000. Sodium is 139, potassium 3.9, his creatinine 0.78, triglycerides 185, cholesterol 272, and LDL was 196. His troponin I's all negative. IMPRESSION AND PLAN: 1. A 59-year-old gentleman, who has been admitted with a probable cerebrovascular accident and MRI is pending. The pacemaker was evaluated, there is no indication that the patient has suffered any episodes of atrial fibrillation and most likely does not appear to be in embolic phenomenon since there is no atrial fibrillation. 2. History of bradycardia, which required pacemaker insertion. 3. Mild coronary artery disease, which has been stable. Last cardiac catheterization as noted was in 2015. I would not expect his disease would have been depressed that much in the last three and half years. 4. History of hypercholesterolemia, unfortunately he stopped taking his medications. He will be advised to resume these medications since his LDL level is 196, as well as a triglyceride level of 185. He also was on psychotropic medications in the past for depression and I have suggested, he has also most likely should be reinstated, but we will leave this up to the discretion of the primary care service. We will evaluate the echocardiogram this repeated. If this remains normal, then there is no further cardiac evaluation that would be indicated at this time. Otherwise, from a cardiac standpoint, he appears to be stable. He has not had follow up in the office for several years. Job ID: [id number] [facility]
[2019-12-09] MEDS: Atorvastatin Calcium 40 MG TAB PO SCH (22:12)
[2019-12-10] MEDS: Aspirin 81 mg Enteric Coated Tablet PO SCH (08:49)
[2019-12-10] MEDS: Famotidine/PF 20 mg/2ml Vial SLOW IVP SCH (08:49)
[2019-12-10] MEDS: Enoxaparin Sodium 40 MG/0.4 ML SYRINGE SC SCH (08:49)
[2019-12-10] MEDS ORDERED: Clopidogrel Bisulfate 75 MG TAB PO SCH (09:00)
--- NOTE | 2019-12-10 09:03 | PDOC.HOSPP ---
- Subjective Encounter Date: 12/10/19 Encounter Time: 12:00 Subjective: Patient had a fall in the bathroom today. [place] a little dizzy, fell down onto bottom, doesn't remember hitting his head. Some low back pain afterward. Patient was on Welbutrin for depression before admit. Was Rx Seroquel also but was causing hallucinations so he stopped it. - Objective Vital Signs & Weight: Vital Signs (12 hours) Temp Pulse Resp BP Pulse Ox 12/10/19 08:05 97.5 F L 76 16 152/91 H 96 12/10/19 04:00 97.9 F 80 18 151/96 H 94 L 12/09/19 23:30 97.9 F 80 20 159/93 H 93 L Weight Admit Weight 258 lb 11.2 oz Weight 258 lb 11.2 oz I&O: 12/09/19 12/10/19 12/11/19 06:59 06:59 06:59 Intake Total 220 Balance 220 Result Diagrams: 12/09/19 04:31 12/09/19 04:31 Hospitalist ROS - Review of Systems Constitutional: reports: weakness. denies: fever, chills Respiratory: denies: cough, shortness of breath Cardiovascular: denies: chest pain, palpitations, orthopnea Gastrointestinal: denies: nausea, vomiting, abdominal pain, diarrhea, constipation Genitourinary: denies: dysuria, hematuria Musculoskeletal: reports: back pain Neurological: reports: weakness, numbness - Medication Medications: Active Medications Generic Name Dose Route Start Last Admin Trade Name Freq PRN Reason Stop Dose Admin Acetaminophen 650 mg 12/08/19 20:39 12/09/19 09:32 Tylenol PO 650 mg Q4H PRN Administration Headache/Fever/Mild Pain (1-3) Aspirin 81 mg 12/09/19 09:00 12/10/19 08:49 Ecotrin PO 81 mg DAILY MAURICE Administration Atorvastatin Calcium 40 mg 12/08/19 21:00 12/09/19 22:12 Lipitor PO 40 mg HS MAURICE Administration Clopidogrel Bisulfate 75 mg 12/10/19 09:00 12/10/19 08:49 Plavix PO 75 mg DAILY MAURICE Administration Enoxaparin Sodium 40 mg 12/09/19 09:00 12/10/19 08:49 Lovenox SC 40 mg 0900 MAURICE Administration Famotidine 20 mg 12/08/19 21:00 12/10/19 08:49 Pepcid SLOW IVP 20 mg Q12HR MAURICE Administration Pantoprazole Sodium 40 mg 12/09/19 09:00 12/10/19 08:49 Protonix PO 40 mg DAILY MAURICE Administration Sodium Chloride 10 ml 12/08/19 20:39 12/09/19 22:12 Flush - Normal Saline IVF 10 ml PRN PRN Administration Saline Flush - Exam General Appearance: NAD, awake alert ENT: moist mucosa Heart: RRR, no murmur, no gallops, no rubs Respiratory: CTAB, no wheezes, no rales, no ronchi Gastrointestinal: soft, non-tender, non-distended, normal bowel sounds Neurological - other findings: mild left weakness and left facial droop, mild slurred speech Psychiatric: normal behavior, A&O x 3 Psychiatric - other findings: mildly depressed affect Hosp A/P (1) Acute ischemic stroke Code(s): I63.9 - CEREBRAL INFARCTION, UNSPECIFIED Status: Acute (2) Chest pain Code(s): R07.9 - CHEST PAIN, UNSPECIFIED Status: Resolved (3) CAD (coronary artery disease) Code(s): I25.10 - ATHSCL HEART DISEASE OF [place] CORONARY ARTERY W/O ANG PCTRS Status: Chronic (4) Dyslipidemia Code(s): E78.5 - HYPERLIPIDEMIA, UNSPECIFIED Status: Chronic (5) HTN (hypertension) Code(s): I10 - ESSENTIAL (PRIMARY) HYPERTENSION Status: Chronic (6) Obesity (BMI 30.0-34.9) Code(s): E66.9 - OBESITY, UNSPECIFIED Status: Chronic (7) Tobacco abuse Code(s): Z72.0 - TOBACCO USE Status: Chronic (8) GERD (gastroesophageal reflux disease) Code(s): K21.9 - GASTRO-ESOPHAGEAL REFLUX DISEASE WITHOUT ESOPHAGITIS Status: Acute (9) Dysphagia Code(s): R13.10 - DYSPHAGIA, UNSPECIFIED Status: Acute (10) Anxiety and depression Code(s): F41.9 - ANXIETY DISORDER, UNSPECIFIED; F32.9 - MAJOR DEPRESSIVE DISORDER, SINGLE EPISODE, UNSPECIFIED Status: Chronic - Plan PT/OT/ST ASA, Dr. Ahmadi added Plavix Statin Appreciate Dr. Samuel's imput. Patient only with hx of bradycardia per her note, not atrial fib, no need for chronic anticoagulation MRI confirming ischemic stroke, ECHO with diastolic dysfunction, Carotid dopplers without significant stenosis MBS today, NPO except sips of water, ice chips, and meds Resume Welbutrin for depression and anxiety Plan on rehab after address eating DVT proph: Lovenox GI proph: PPI
[2019-12-10] MEDS: Sodium Chloride 0.45% 1,000 ML IV SCH (13:01)
--- NOTE | 2019-12-10 14:38 | RAD ---
LUMBAR SPINE 3 VIEWS: HISTORY: Pain following injury from a fall. FINDINGS: Marked disk space narrowing with hypertrophic osteophytosis at L4-L5. Moderate narrowing at L3-L4. Generalized facet arthrosis. No acute fracture or dislocation or significant malalignment. IMPRESSION: Lumbar spondylosis most marked at L4-L5 followed by L3-L4. POS: OFF
--- NOTE | 2019-12-10 15:26 | RAD ---
Modified Barium Swallow CLINICAL HISTORY: Dysphagia following cerebral infarction; feeding difficulties R 63.3 FINDINGS: The examination is performed under real-time fluoroscopy under guidance of the speech ther apy department. 2 minutes There were episodes of trace flash penetration with thin barium liquids only. The patient had no epi sodes of tracheal aspiration. IMPRESSION: Episodes of flash penetration only with thin barium liquids. No episodes of tracheal aspi ration. Reference speech pathology report for further details.
--- NOTE | 2019-12-10 15:40 | PDOC.CPN ---
- Subjective Date: 12/10/19 Time: 15:00 Interval history: pt. seen and eval. by me. He fell today in shower,no syncope. No cardiac complaints. - Review of Systems General: reports: fatigue Respiratory: reports: congestion, shortness of breath Cardiovascular: reports: chest pain, palpitation, orthopnea Gastrointestinal: reports: nausea, vomiting, diarrhea Musculoskeletal: reports: pain, tenderness, swelling Neurological: reports: syncope - Objective Allergies/Adverse Reactions: Allergies Allergy/AdvReac Type Severity Reaction Status Date / Time No Known Allergies Allergy Verified 12/09/19 04:13 Visit Medications: Current Medications Acetaminophen (Tylenol) 650 mg PO Q4H PRN PRN Reason: Headache/Fever/Mild Pain (1-3) Last Admin: 12/09/19 09:32 Dose: 650 mg Acetaminophen (Tylenol) 650 mg UT Q4H PRN PRN Reason: Headache/Fever/Mild Pain (1-3) Aspirin (Ecotrin) 81 mg PO DAILY [facility] Last Admin: 12/10/19 08:49 Dose: 81 mg Atorvastatin Calcium (Lipitor) 40 mg PO HS [facility] Last Admin: 12/09/19 22:12 Dose: 40 mg Bupropion HCl (Wellbutrin Xl) 150 mg PO QAM [facility] Clopidogrel Bisulfate (Plavix) 75 mg PO DAILY [facility] Last Admin: 12/10/19 08:49 Dose: 75 mg Colchicine (Colchicine) 0.6 mg PO DAILY [facility] Enoxaparin Sodium (Lovenox) 40 mg SC 0900 [facility] Last Admin: 12/10/19 08:49 Dose: 40 mg Guaifenesin/Dextromethorphan (Robitussin Dm) 15 ml PO Q4H PRN PRN Reason: Cough Hydralazine HCl (Apresoline) 10 mg SLOW IVP Q4H PRN PRN Reason: BP > 220/110 Sodium Chloride (1/2 Normal Saline) 1,000 mls @ 75 mls/hr IV .[id number] [facility] Last Admin: 12/10/19 13:01 Dose: 1,000 mls Labetalol HCl (Normodyne) 20 mg SLOW IVP Q1H PRN PRN Reason: BP > 220/110 Ondansetron HCl (Zofran Odt) 4 mg PO Q6H PRN PRN Reason: Nausea/Vomiting Ondansetron HCl (Zofran) 4 mg IVP Q6H PRN PRN Reason: Nausea/Vomiting Pantoprazole Sodium (Protonix) 40 mg PO DAILY [facility] Last Admin: 12/10/19 08:49 Dose: 40 mg Senna/Docusate Sodium (Senokot S) 2 tab PO BID PRN PRN Reason: Constipation Sodium Chloride (Flush - Normal Saline) 10 ml IVF PRN PRN PRN Reason: Saline Flush Last Admin: 12/09/19 22:12 Dose: 10 ml Tamsulosin HCl (Flomax) 0.4 mg PO DAILY [facility] Vital Signs & Weight: Vital Signs Temp Pulse Pulse Resp BP BP Pulse Ox 12/10/19 11:06 98.1 F 82 20 142/97 H 97 12/10/19 09:46 79 154/104 H 12/10/19 08:45 97 12/10/19 08:05 97.5 F L 76 16 152/91 H 96 12/10/19 04:00 97.9 F 80 18 151/96 H 94 L Admit Weight 258 lb 11.2 oz Weight 258 lb 11.2 oz - Physical Exam HEENT: normocephaly Neck: supple neck, no bruit, no lymphadenopathy Cardiac: regular rate and rhythm, no murmur Lungs: clear to auscultation, normal exam Neuro: grossly intact Abdomen: active bowel sounds, soft Extremities: no cyanosis, no clubbing, no edema Musculoskeletal: no pain - Labs Result Diagrams: 12/09/19 04:31 12/09/19 04:31 Troponin/CKMB Troponin I 0.015 ng/mL (< 0.028) 12/08/19 14:28 - Telemetry Sinus rhythms and dysrhythmias: sinus rhythm - Assessment/Plan Assessment/Plan: 1. s/p CVA, not felt to be embolic. 2. CAD: mild single vessel dz. by cath 2015. 3. chest pain: non-cardiac. 4. s/p pacemaker insertion several years ago. Normal function. No afib. noted on the interrogation of the device. Cardiac status is stable. I will sign off. If any new cardiac issues then please contact me again.
--- NOTE | 2019-12-10 21:10 | CON ---
DATE OF CONSULTATION: 12/10/2019 CONSULTING PHYSICIAN: Hospitalist Services. IMPRESSION: 1. Acute right hemispheric stroke with left-sided weakness. 2. Noncompliance. PLAN: 1. Restart aspirin and a statin. 2. Rehab transfer. HISTORY OF PRESENT ILLNESS: Mr. Quesada is a 59-year-old male with a past history of hypertension. He was also supposed to be on some cardiac medications. He decided on his own to discontinue all medications. He presented with acute onset of left-sided weakness. MRI confirmed an acute area of infarction. Echocardiogram showed a normal ejection fraction of 75%. His cholesterol ratio was 7.0. Carotid ultrasound was clear. His symptoms have improved, but he is still having difficulty ambulating independently. EKG showed normal sinus rhythm. PAST MEDICAL HISTORY: Hypertension, coronary disease. FAMILY HISTORY: Noncontributory. SOCIAL HISTORY: Unremarkable. ALLERGIES: NONE REPORTED. MEDICINES: None. REVIEW OF SYSTEMS: Ten-system review of systems is otherwise negative. PHYSICAL EXAMINATION: GENERAL: He is an overweight middle-aged man, sitting in bed, in no distress. VITAL SIGNS: Had been stable. He is afebrile. HEENT: Pupils equal and reactive. Conjunctivae clear. Oropharynx clear. NECK: Supple. No lymphadenopathy. EXTREMITIES: No cyanosis, clubbing or edema. NEUROLOGIC: He is alert and cooperative. His speech is fluent with a mildly dysarthric quality. There is a subtle left facial droop. He had good strength in both upper extremities. He had some mild weakness and pain in the left foot, which limits his mobility. Sensation was intact to touch. No abnormal movements were seen. IMAGING STUDIES: CT of the brain showed an old left periventricular area of chronic ischemia. SUMMARY: This is a middle-aged man who has been noncompliant, presented with a new stroke on the right side. His medicines have been restarted. He will be transferred to Rehab for further care. Job ID: [id number]
[2019-12-10] MEDS: Atorvastatin Calcium 40 MG TAB PO SCH (21:14)
[2019-12-11] MEDS: Sodium Chloride 0.45% 1,000 ML IV SCH ×2 (03:29→18:37)
[2019-12-11] MEDS: Enoxaparin Sodium 40 MG/0.4 ML SYRINGE SC SCH (09:43)
[2019-12-11] MEDS: Bupropion 150 MG XL TAB PO SCH (09:44)
[2019-12-11] MEDS: Colchicine 0.6 MG TAB PO SCH (09:44)
[2019-12-11] MEDS: Tamsulosin HCl 0.4 MG CAP PO SCH (09:44)
[2019-12-11] MEDS: Aspirin 81 mg Enteric Coated Tablet PO SCH (09:44)
--- NOTE | 2019-12-11 16:03 | PDOC.HOSPP ---
- Subjective Subjective: Sitting comfortably in bed today. No new complaints. Still notes left sided weaker than right. - Objective Vital Signs & Weight: Vital Signs (12 hours) Temp Pulse Pulse Pulse Resp BP BP 12/11/19 15:52 98.1 F 82 13 12/11/19 12:00 98.2 F 83 18 12/11/19 09:49 76 77 137/93 H 134/87 12/11/19 08:00 97.6 F 73 16 BP Pulse Ox 12/11/19 15:52 122/81 98 12/11/19 12:00 124/89 97 12/11/19 09:49 12/11/19 08:00 148/88 H 93 L Weight Admit Weight 258 lb 11.2 oz Weight 258 lb 11.2 oz I&O: 12/10/19 12/11/19 12/12/19 06:59 06:59 06:59 Intake Total 220 1382.5 Balance 220 1382.5 Result Diagrams: 12/09/19 04:31 12/09/19 04:31 Hospitalist ROS - Review of Systems All other systems reviewed; all pertinent +/- noted in HPI/Subj - Medication Medications: Active Medications Generic Name Dose Route Start Last Admin Trade Name Freq PRN Reason Stop Dose Admin Acetaminophen 650 mg 12/08/19 20:39 12/09/19 09:32 Tylenol PO 650 mg Q4H PRN Administration Headache/Fever/Mild Pain (1-3) Aspirin 81 mg 12/09/19 09:00 12/11/19 09:44 Ecotrin PO 81 mg DAILY [facility] Administration Atorvastatin Calcium 40 mg 12/08/19 21:00 12/10/19 21:14 Lipitor PO 40 mg HS [facility] Administration Bupropion HCl 150 mg 12/11/19 09:00 12/11/19 09:44 Wellbutrin Xl PO 150 mg QAM [facility] Administration Colchicine 0.6 mg 12/11/19 09:00 12/11/19 09:44 Colchicine PO 0.6 mg DAILY [facility] Administration Enoxaparin Sodium 40 mg 12/09/19 09:00 12/11/19 09:43 Lovenox SC 40 mg 0900 [facility] Administration Sodium Chloride 1,000 mls @ 75 mls/hr 12/10/19 12:45 12/11/19 03:29 1/2 Normal Saline IV 1,000 mls .[id number] [facility] Administration Pantoprazole Sodium 40 mg 12/09/19 09:00 12/11/19 09:44 Protonix PO 40 mg DAILY [facility] Administration Sodium Chloride 10 ml 12/08/19 20:39 12/09/19 22:12 Flush - Normal Saline IVF 10 ml PRN PRN Administration Saline Flush Tamsulosin HCl 0.4 mg 12/11/19 09:00 12/11/19 09:44 Flomax PO 0.4 mg DAILY [facility] Administration - Exam General Appearance: NAD, awake alert Eye: PERRL, anicteric sclera ENT: normocephalic atraumatic, no oropharyngeal lesions, moist mucosa Neck: supple, symmetric, no JVD, no thyromegaly, no lymphadenopathy, no carotid bruit Heart: RRR, no murmur, no gallops, no rubs, normal peripheral pulses Respiratory: CTAB, no wheezes, no rales, no ronchi, normal chest expansion, no tachypnea, normal percussion Gastrointestinal: soft, non-tender, non-distended, normal bowel sounds, no palpable masses, no hepatomegaly, no splenomegaly, no bruit Extremities: no cyanosis, no clubbing, no edema Skin: normal turgor, no lesions, no rashes Neurological: normal sensation to touch, speech deficit Neurological - other findings: left sided weakness compared to right, slurred speech at times Musculoskeletal: normal tone, normal strength, no muscle wasting Psychiatric: normal affect, normal behavior, A&O x 3 Hosp A/P (1) Acute ischemic stroke Code(s): I63.9 - CEREBRAL INFARCTION, UNSPECIFIED Status: Acute (2) GERD (gastroesophageal reflux disease) Code(s): K21.9 - GASTRO-ESOPHAGEAL REFLUX DISEASE WITHOUT ESOPHAGITIS Status: Acute (3) Anxiety and depression Code(s): F41.9 - ANXIETY DISORDER, UNSPECIFIED; F32.9 - MAJOR DEPRESSIVE DISORDER, SINGLE EPISODE, UNSPECIFIED Status: Chronic (4) CAD (coronary artery disease) Code(s): I25.10 - ATHSCL HEART DISEASE OF [place] CORONARY ARTERY W/O ANG PCTRS Status: Chronic (5) Dyslipidemia Code(s): E78.5 - HYPERLIPIDEMIA, UNSPECIFIED Status: Chronic (6) HTN (hypertension) Code(s): I10 - ESSENTIAL (PRIMARY) HYPERTENSION Status: Chronic (7) Obesity (BMI 30.0-34.9) Code(s): E66.9 - OBESITY, UNSPECIFIED Status: Chronic - Plan PT/OT/ST Continue ASA and plavix Statin Appreciate Dr. Samuel's imput. Patient only with hx of bradycardia per her note, not atrial fib, no need for chronic anticoagulation MRI confirming ischemic stroke, ECHO with diastolic dysfunction, Carotid dopplers without significant stenosis Continue wellbutrin DVT Prophylaxis: Lovenox Code Status: DNAR Disposition: Pending inpatient rehab.
[2019-12-11] MEDS: Atorvastatin Calcium 40 MG TAB PO SCH (20:13)
[2019-12-12] MEDS: Sodium Chloride 0.45% 1,000 ML IV SCH (06:09)
[2019-12-12] MEDS: Tamsulosin HCl 0.4 MG CAP PO SCH (08:24)
[2019-12-12] MEDS: Enoxaparin Sodium 40 MG/0.4 ML SYRINGE SC SCH (08:24)
[2019-12-12] MEDS: Colchicine 0.6 MG TAB PO SCH (08:24)
[2019-12-12] MEDS: Aspirin 81 mg Enteric Coated Tablet PO SCH (08:24)
[2019-12-12] MEDS: Bupropion 150 MG XL TAB PO SCH (08:24)
--- NOTE | 2019-12-12 16:44 | PDOC.HOSPP ---
- Subjective Subjective: No new complaints today. He is working well with PT/oT. - Objective Vital Signs & Weight: Vital Signs (12 hours) Temp Pulse Resp BP Pulse Ox 12/12/19 12:00 97.8 F 79 16 127/89 95 12/12/19 07:52 97.6 F 77 18 146/93 H 96 Weight Admit Weight 258 lb 11.2 oz Weight 258 lb 11.2 oz I&O: 12/11/19 12/12/19 12/13/19 06:59 06:59 06:59 Intake Total 1382.5 1505 Balance 1382.5 1505 Result Diagrams: 12/09/19 04:31 12/09/19 04:31 Hospitalist ROS - Review of Systems All other systems reviewed; all pertinent +/- noted in HPI/Subj - Medication Medications: Active Medications Generic Name Dose Route Start Last Admin Trade Name Freq PRN Reason Stop Dose Admin Acetaminophen 650 mg 12/08/19 20:39 12/09/19 09:32 Tylenol PO 650 mg Q4H PRN Administration Headache/Fever/Mild Pain (1-3) Aspirin 81 mg 12/09/19 09:00 12/12/19 08:24 Ecotrin PO 81 mg DAILY [facility] Administration Atorvastatin Calcium 40 mg 12/08/19 21:00 12/11/19 20:13 Lipitor PO 40 mg HS [facility] Administration Bupropion HCl 150 mg 12/11/19 09:00 12/12/19 08:24 Wellbutrin Xl PO 150 mg QAM [facility] Administration Colchicine 0.6 mg 12/11/19 09:00 12/12/19 08:24 Colchicine PO 0.6 mg DAILY [facility] Administration Enoxaparin Sodium 40 mg 12/09/19 09:00 12/12/19 08:24 Lovenox SC 40 mg 0900 [facility] Administration Sodium Chloride 1,000 mls @ 75 mls/hr 12/10/19 12:45 12/12/19 06:09 1/2 Normal Saline IV 1,000 mls .[id number] [facility] Administration Pantoprazole Sodium 40 mg 12/09/19 09:00 12/12/19 08:24 Protonix PO 40 mg DAILY [facility] Administration Sodium Chloride 10 ml 12/08/19 20:39 12/09/19 22:12 Flush - Normal Saline IVF 10 ml PRN PRN Administration Saline Flush Tamsulosin HCl 0.4 mg 12/11/19 09:00 12/12/19 08:24 Flomax PO 0.4 mg DAILY [facility] Administration - Exam General Appearance: NAD, awake alert Eye: PERRL, anicteric sclera ENT: normocephalic atraumatic, no oropharyngeal lesions, moist mucosa Neck: supple, symmetric, no JVD, no thyromegaly, no lymphadenopathy, no carotid bruit Heart: RRR, no murmur, no gallops, no rubs, normal peripheral pulses Respiratory: CTAB, no wheezes, no rales, no ronchi, normal chest expansion, no tachypnea, normal percussion Gastrointestinal: soft, non-tender, non-distended, normal bowel sounds, no palpable masses, no hepatomegaly, no splenomegaly, no bruit Extremities: no cyanosis, no clubbing, no edema Skin: normal turgor, no lesions, no rashes Neurological: cranial nerve grossly intact, normal sensation to touch, no new deficit, speech deficit Neurological - other findings: weakness more on left side than right Musculoskeletal: normal tone, normal strength, no muscle wasting Psychiatric: normal affect, normal behavior, A&O x 3 Hosp A/P (1) Acute ischemic stroke Code(s): I63.9 - CEREBRAL INFARCTION, UNSPECIFIED Status: Acute (2) GERD (gastroesophageal reflux disease) Code(s): K21.9 - GASTRO-ESOPHAGEAL REFLUX DISEASE WITHOUT ESOPHAGITIS Status: Acute (3) Anxiety and depression Code(s): F41.9 - ANXIETY DISORDER, UNSPECIFIED; F32.9 - MAJOR DEPRESSIVE DISORDER, SINGLE EPISODE, UNSPECIFIED Status: Chronic (4) CAD (coronary artery disease) Code(s): I25.10 - ATHSCL HEART DISEASE OF [place] CORONARY ARTERY W/O ANG PCTRS Status: Chronic (5) Dyslipidemia Code(s): E78.5 - HYPERLIPIDEMIA, UNSPECIFIED Status: Chronic (6) HTN (hypertension) Code(s): I10 - ESSENTIAL (PRIMARY) HYPERTENSION Status: Chronic (7) Obesity (BMI 30.0-34.9) Code(s): E66.9 - OBESITY, UNSPECIFIED Status: Chronic - Plan PT/OT/ST Continue ASA and plavix Statin Appreciate Dr. Samuel's imput. Patient only with hx of bradycardia per her note, not atrial fib, no need for chronic anticoagulation MRI confirming ischemic stroke, ECHO with diastolic dysfunction, Carotid dopplers without significant stenosis Continue wellbutrin DVT Prophylaxis: Lovenox Code Status: DNAR Disposition: Pending inpatient rehab.
[2019-12-12] MEDS: Atorvastatin Calcium 40 MG TAB PO SCH (20:09)
[2019-12-13] MEDS: Sodium Chloride 0.45% 1,000 ML IV SCH (01:33)
[2019-12-13] MEDS: Tamsulosin HCl 0.4 MG CAP PO SCH (07:55)
[2019-12-13] MEDS: Enoxaparin Sodium 40 MG/0.4 ML SYRINGE SC SCH (07:55)
[2019-12-13] MEDS: Colchicine 0.6 MG TAB PO SCH (07:55)
[2019-12-13] MEDS: Aspirin 81 mg Enteric Coated Tablet PO SCH (07:55)
[2019-12-13] MEDS: Bupropion 150 MG XL TAB PO SCH (07:55)
--- NOTE | 2019-12-13 14:47 | PDOC.HOSPP ---
- Subjective Subjective: No overnight complaints. Speech and left sided defects improving. - Objective Vital Signs & Weight: Vital Signs (12 hours) Temp Pulse Resp BP Pulse Ox 12/13/19 11:12 97.6 F 81 15 144/93 H 97 12/13/19 08:00 97.8 F 81 14 136/86 94 L 12/13/19 04:00 98.1 F 90 18 149/96 H 94 L Weight Admit Weight 258 lb 11.2 oz Weight 258 lb 11.2 oz I&O: 12/12/19 12/13/19 12/14/19 06:59 06:59 06:59 Intake Total 1505 575 Balance 1505 575 Result Diagrams: 12/09/19 04:31 12/09/19 04:31 Hospitalist ROS - Review of Systems All other systems reviewed; all pertinent +/- noted in HPI/Subj - Medication Medications: Active Medications Generic Name Dose Route Start Last Admin Trade Name Freq PRN Reason Stop Dose Admin Acetaminophen 650 mg 12/08/19 20:39 12/09/19 09:32 Tylenol PO 650 mg Q4H PRN Administration Headache/Fever/Mild Pain (1-3) Aspirin 81 mg 12/09/19 09:00 12/13/19 07:55 Ecotrin PO 81 mg DAILY [facility] Administration Atorvastatin Calcium 40 mg 12/08/19 21:00 12/12/19 20:09 Lipitor PO 40 mg HS [facility] Administration Bupropion HCl 150 mg 12/11/19 09:00 12/13/19 07:55 Wellbutrin Xl PO 150 mg QAM [facility] Administration Colchicine 0.6 mg 12/11/19 09:00 12/13/19 07:55 Colchicine PO 0.6 mg DAILY [facility] Administration Enoxaparin Sodium 40 mg 12/09/19 09:00 12/13/19 07:55 Lovenox SC 40 mg 0900 [facility] Administration Pantoprazole Sodium 40 mg 12/09/19 09:00 12/13/19 07:55 Protonix PO 40 mg DAILY [facility] Administration Sodium Chloride 10 ml 12/08/19 20:39 12/09/19 22:12 Flush - Normal Saline IVF 10 ml PRN PRN Administration Saline Flush Tamsulosin HCl 0.4 mg 12/11/19 09:00 12/13/19 07:55 Flomax PO 0.4 mg DAILY [facility] Administration - Exam General Appearance: NAD, awake alert Eye: PERRL, anicteric sclera ENT: normocephalic atraumatic, no oropharyngeal lesions, moist mucosa Neck: supple, symmetric, no JVD, no thyromegaly, no lymphadenopathy, no carotid bruit Heart: RRR, no murmur, no gallops, no rubs, normal peripheral pulses Respiratory: CTAB, no wheezes, no rales, no ronchi, normal chest expansion, no tachypnea, normal percussion Gastrointestinal: soft, non-tender, non-distended, normal bowel sounds, no palpable masses, no hepatomegaly, no splenomegaly, no bruit Extremities: no cyanosis, no clubbing, no edema Skin: normal turgor, no lesions, no rashes Neurological: cranial nerve grossly intact, normal sensation to touch, no weakness, no focal deficits, no new deficit Musculoskeletal: normal tone, normal strength, no muscle wasting Psychiatric: normal affect, normal behavior, A&O x 3 Hosp A/P (1) Acute ischemic stroke Code(s): I63.9 - CEREBRAL INFARCTION, UNSPECIFIED Status: Acute (2) GERD (gastroesophageal reflux disease) Code(s): K21.9 - GASTRO-ESOPHAGEAL REFLUX DISEASE WITHOUT ESOPHAGITIS Status: Acute (3) Anxiety and depression Code(s): F41.9 - ANXIETY DISORDER, UNSPECIFIED; F32.9 - MAJOR DEPRESSIVE DISORDER, SINGLE EPISODE, UNSPECIFIED Status: Chronic (4) CAD (coronary artery disease) Code(s): I25.10 - ATHSCL HEART DISEASE OF [place] CORONARY ARTERY W/O ANG PCTRS Status: Chronic (5) Dyslipidemia Code(s): E78.5 - HYPERLIPIDEMIA, UNSPECIFIED Status: Chronic (6) HTN (hypertension) Code(s): I10 - ESSENTIAL (PRIMARY) HYPERTENSION Status: Chronic (7) Obesity (BMI 30.0-34.9) Code(s): E66.9 - OBESITY, UNSPECIFIED Status: Chronic - Plan PT/OT/ST Continue ASA and plavix Statin Appreciate Dr. Samuel's imput. Patient only with hx of bradycardia per her note, not atrial fib, no need for chronic anticoagulation MRI confirming ischemic stroke, ECHO with diastolic dysfunction, Carotid dopplers without significant stenosis Continue wellbutrin DVT Prophylaxis: Lovenox Code Status: DNAR Disposition: Pending inpatient rehab.
[2019-12-13] MEDS: Atorvastatin Calcium 40 MG TAB PO SCH (20:24)
[2019-12-14] MEDS: Aspirin 81 mg Enteric Coated Tablet PO SCH (09:15)
[2019-12-14] MEDS: Bupropion 150 MG XL TAB PO SCH (09:16)
[2019-12-14] MEDS: Enoxaparin Sodium 40 MG/0.4 ML SYRINGE SC SCH (09:16)
[2019-12-14] MEDS: Colchicine 0.6 MG TAB PO SCH (09:16)
[2019-12-14] MEDS: Tamsulosin HCl 0.4 MG CAP PO SCH (09:17)
--- NOTE | 2019-12-14 14:07 | PDOC.HOSPP ---
- Subjective Subjective: OT evaluating him at bedside, pt has no acute issues. LEft hemiparesis, speech good. No dysphagia. - Objective Vital Signs & Weight: Vital Signs (12 hours) Temp Pulse Pulse Pulse Resp BP BP 12/14/19 11:23 97.9 F 80 15 12/14/19 09:19 84 86 146/87 H 140/90 12/14/19 07:42 98.6 F 15 12/14/19 04:00 97.8 F 99 18 BP Pulse Ox 12/14/19 11:23 121/92 H 99 12/14/19 09:19 12/14/19 07:42 97 12/14/19 04:00 143/93 H 94 L Weight Admit Weight 258 lb 11.2 oz Weight 258 lb 11.2 oz I&O: 12/13/19 12/14/19 12/15/19 06:59 06:59 06:59 Intake Total 575 1200 Balance 575 1200 Result Diagrams: 12/09/19 04:31 12/09/19 04:31 Hospitalist ROS - Medication Medications: Active Medications Generic Name Dose Route Start Last Admin Trade Name Freq PRN Reason Stop Dose Admin Acetaminophen 650 mg 12/08/19 20:39 12/09/19 09:32 Tylenol PO 650 mg Q4H PRN Administration Headache/Fever/Mild Pain (1-3) Aspirin 81 mg 12/09/19 09:00 12/14/19 09:15 Ecotrin PO 81 mg DAILY [facility] Administration Atorvastatin Calcium 40 mg 12/08/19 21:00 12/13/19 20:24 Lipitor PO 40 mg HS [facility] Administration Bupropion HCl 150 mg 12/11/19 09:00 12/14/19 09:16 Wellbutrin Xl PO 150 mg QAM [facility] Administration Colchicine 0.6 mg 12/11/19 09:00 12/14/19 09:16 Colchicine PO 0.6 mg DAILY [facility] Administration Enoxaparin Sodium 40 mg 12/09/19 09:00 12/14/19 09:16 Lovenox SC 40 mg 0900 [facility] Administration Pantoprazole Sodium 40 mg 12/09/19 09:00 12/14/19 09:17 Protonix PO 40 mg DAILY [facility] Administration Sodium Chloride 10 ml 12/08/19 20:39 12/09/19 22:12 Flush - Normal Saline IVF 10 ml PRN PRN Administration Saline Flush Tamsulosin HCl 0.4 mg 12/11/19 09:00 12/14/19 09:17 Flomax PO 0.4 mg DAILY [facility] Administration - Exam Eye: PERRL ENT: normocephalic atraumatic Neck: symmetric Heart: RRR, no murmur Respiratory: CTAB, no wheezes Gastrointestinal: soft, non-tender, non-distended, normal bowel sounds Extremities - other findings: left mild weakness -- has boot on the left leg. Neurological: cranial nerve grossly intact, no new deficit Neurological - other findings: dysarthria and dysphagia resolved. Hosp A/P - Plan Acute ischemic stroke - PT/OT/ST Continue ASA and plavix Statin sinus ming -no atrial fib, no NOAC -MRI confirming ischemic stroke, ECHO with diastolic dysfunction, Carotid dopplers without significant stenosis Continue wellbutrin -fw on TSH level, a1c (2) GERD (gastroesophageal reflux disease) (3) Anxiety and depression (4) CAD (coronary artery disease) (5) Dyslipidemia -LD of 196 -statin--lipitor increased to 80mg qhs (6) HTN (hypertension) -acei (7) Obesity (BMI 30.0-34.9) DVT Prophylaxis: Lovenox Code Status: DNAR Disposition: Pending inpatient rehab.
[2019-12-14] MEDS: Atorvastatin Calcium 40 MG TAB PO SCH (20:10)
[2019-12-15] MEDS: Acetaminophen 325 MG TAB PO PRN ×2 (01:12→15:52)
[2019-12-15 05:20] LABS: Hemoglobin A1c 5.1 % (4.0-6.0)
[2019-12-15] MEDS: Enoxaparin Sodium 40 MG/0.4 ML SYRINGE SC SCH (08:51)
[2019-12-15] MEDS: Aspirin 81 mg Enteric Coated Tablet PO SCH (08:51)
[2019-12-15] MEDS: Tamsulosin HCl 0.4 MG CAP PO SCH (08:51)
[2019-12-15] MEDS: Bupropion 150 MG XL TAB PO SCH (08:51)
[2019-12-15] MEDS: Colchicine 0.6 MG TAB PO SCH (08:51)
[2019-12-15] MEDS ORDERED: Lisinopril 10 MG TAB PO SCH (09:00)
--- NOTE | 2019-12-15 13:37 | PDOC.HOSPP ---
- Subjective Subjective: doing well, talk to the , pending rehab. - Objective Vital Signs & Weight: Vital Signs (12 hours) Temp Pulse Resp BP BP BP BP 12/15/19 11:52 97.4 F L 80 16 120/84 12/15/19 09:50 139/89 129/87 12/15/19 08:51 142/93 H 12/15/19 07:55 97.6 F 76 16 126/100 H 12/15/19 04:00 97.9 F 86 16 136/95 H Pulse Ox 12/15/19 11:52 95 12/15/19 09:50 12/15/19 08:51 12/15/19 07:55 94 L 12/15/19 04:00 94 L Weight Admit Weight 258 lb 11.2 oz Weight 258 lb 11.2 oz I&O: 12/14/19 12/15/19 12/16/19 06:59 06:59 06:59 Intake Total 1200 Balance 1200 Result Diagrams: 12/09/19 04:31 12/09/19 04:31 Hospitalist ROS - Medication Medications: Active Medications Generic Name Dose Route Start Last Admin Trade Name Freq PRN Reason Stop Dose Admin Acetaminophen 650 mg 12/08/19 20:39 12/15/19 01:12 Tylenol PO 650 mg Q4H PRN Administration Headache/Fever/Mild Pain (1-3) Aspirin 81 mg 12/09/19 09:00 12/15/19 08:51 Ecotrin PO 81 mg DAILY [facility] Administration Atorvastatin Calcium 80 mg 12/14/19 21:00 12/14/19 20:10 Lipitor PO 80 mg HS [facility] Administration Bupropion HCl 150 mg 12/11/19 09:00 12/15/19 08:51 Wellbutrin Xl PO 150 mg QAM [facility] Administration Colchicine 0.6 mg 12/11/19 09:00 12/15/19 08:51 Colchicine PO 0.6 mg DAILY [facility] Administration Enoxaparin Sodium 40 mg 12/09/19 09:00 12/15/19 08:51 Lovenox SC 40 mg 0900 [facility] Administration Lisinopril 10 mg 12/15/19 09:00 12/15/19 08:51 Zestril PO 10 mg DAILY [facility] Administration Pantoprazole Sodium 40 mg 12/09/19 09:00 12/15/19 08:52 Protonix PO 40 mg DAILY [facility] Administration Sodium Chloride 10 ml 12/08/19 20:39 12/09/19 22:12 Flush - Normal Saline IVF 10 ml PRN PRN Administration Saline Flush Tamsulosin HCl 0.4 mg 12/11/19 09:00 12/15/19 08:51 Flomax PO 0.4 mg DAILY [facility] Administration - Exam General Appearance: NAD, awake alert, ill appearing Eye: PERRL, anicteric sclera, scleral icterus ENT: normocephalic atraumatic Neck: symmetric Heart: RRR, no murmur Respiratory: CTAB, no wheezes Gastrointestinal: soft, non-tender, non-distended, normal bowel sounds Neurological: no focal deficits Hosp A/P - Plan old records reviewed/req Acute ischemic stroke - PT/OT/ST Continue ASA and plavix Statin sinus ming -no atrial fib, no NOAC -MRI confirming ischemic stroke, ECHO with diastolic dysfunction, Carotid dopplers without significant stenosis Continue wellbutrin -fw on TSH nl level, a1c 5 (2) GERD (gastroesophageal reflux disease) (3) Anxiety and depression (4) CAD (coronary artery disease) (5) Dyslipidemia -LD of 196 -statin--lipitor increased to 80mg qhs (6) HTN (hypertension) -acei increased to 20 mg daily (7) Obesity (BMI 30.0-34.9) DVT Prophylaxis: Lovenox Code Status: DNAR Disposition: Pending inpatient rehab.
[2019-12-15] MEDS: Atorvastatin Calcium 40 MG TAB PO SCH (21:39)
[2019-12-16] MEDS: Acetaminophen 325 MG TAB PO PRN ×3 (04:58→22:45)
[2019-12-16] MEDS: Lisinopril 20 MG TAB PO SCH (09:00)
[2019-12-16] MEDS: Aspirin 81 mg Enteric Coated Tablet PO SCH (09:00)
[2019-12-16] MEDS: Tamsulosin HCl 0.4 MG CAP PO SCH (09:00)
[2019-12-16] MEDS: Colchicine 0.6 MG TAB PO SCH (09:00)
[2019-12-16] MEDS: Enoxaparin Sodium 40 MG/0.4 ML SYRINGE SC SCH (09:01)
[2019-12-16] MEDS: Bupropion 150 MG XL TAB PO SCH (09:01)
--- NOTE | 2019-12-16 11:49 | PDOC.HOSPP ---
- Subjective Subjective: no acute issues. - Objective Vital Signs & Weight: Vital Signs (12 hours) Temp Pulse Pulse Pulse Resp BP BP 12/16/19 09:43 77 81 112/84 12/16/19 09:00 111/81 12/16/19 07:43 98.4 F 80 16 12/16/19 04:00 98.2 F 95 16 BP BP Pulse Ox 12/16/19 09:43 121/80 12/16/19 09:00 12/16/19 07:43 111/81 94 L 12/16/19 04:00 133/83 94 L Weight Admit Weight 258 lb 11.2 oz Weight 258 lb 11.2 oz Result Diagrams: 12/09/19 04:31 12/09/19 04:31 Hospitalist ROS - Medication Medications: Active Medications Generic Name Dose Route Start Last Admin Trade Name Freq PRN Reason Stop Dose Admin Acetaminophen 650 mg 12/08/19 20:39 12/16/19 08:59 Tylenol PO 650 mg Q4H PRN Administration Headache/Fever/Mild Pain (1-3) Aspirin 81 mg 12/09/19 09:00 12/16/19 09:00 Ecotrin PO 81 mg DAILY MAURICE Administration Atorvastatin Calcium 80 mg 12/14/19 21:00 12/15/19 21:39 Lipitor PO 80 mg HS MAURICE Administration Bupropion HCl 150 mg 12/11/19 09:00 12/16/19 09:01 Wellbutrin Xl PO 150 mg QAM MAURICE Administration Colchicine 0.6 mg 12/11/19 09:00 12/16/19 09:00 Colchicine PO 0.6 mg DAILY MAURICE Administration Enoxaparin Sodium 40 mg 12/09/19 09:00 12/16/19 09:01 Lovenox SC 40 mg 0900 MAURICE Administration Lisinopril 20 mg 12/16/19 09:00 12/16/19 09:00 Zestril PO 20 mg DAILY MAURICE Administration Pantoprazole Sodium 40 mg 12/09/19 09:00 12/16/19 09:00 Protonix PO 40 mg DAILY MAURICE Administration Sodium Chloride 10 ml 12/08/19 20:39 12/09/19 22:12 Flush - Normal Saline IVF 10 ml PRN PRN Administration Saline Flush Tamsulosin HCl 0.4 mg 12/11/19 09:00 12/16/19 09:00 Flomax PO 0.4 mg DAILY MAURICE Administration - Exam General Appearance: NAD, awake alert Eye: PERRL ENT: normocephalic atraumatic Neck: supple, symmetric Heart: RRR, no murmur Respiratory: CTAB, no wheezes Gastrointestinal: soft, non-tender, normal bowel sounds Neurological: no focal deficits Hosp A/P - Plan old records reviewed/req Acute ischemic stroke - PT/OT/ST Continue ASA and plavix Statin sinus ming -no atrial fib, no NOAC -MRI confirming ischemic stroke, ECHO with diastolic dysfunction, Carotid dopplers without significant stenosis Continue wellbutrin - TSH nl level, a1c 5 (2) GERD (gastroesophageal reflux disease) (3) Anxiety and depression (4) CAD (coronary artery disease) (5) Dyslipidemia -LD of 196 -statin--lipitor increased to 80mg qhs (6) HTN (hypertension) -acei increased to 20 mg daily (7) Obesity (BMI 30.0-34.9) DVT Prophylaxis: Lovenox Code Status: DNAR Disposition: Pending inpatient rehab. none changed. cw current mgmt.
[2019-12-16] MEDS: Atorvastatin Calcium 40 MG TAB PO SCH (21:10)
[2019-12-17] MEDS: Aspirin 81 mg Enteric Coated Tablet PO SCH (09:07)
[2019-12-17] MEDS: Colchicine 0.6 MG TAB PO SCH (09:07)
[2019-12-17] MEDS: Tamsulosin HCl 0.4 MG CAP PO SCH (09:07)
[2019-12-17] MEDS: Lisinopril 20 MG TAB PO SCH (09:07)
[2019-12-17] MEDS: Bupropion 150 MG XL TAB PO SCH (09:07)
[2019-12-17] MEDS: Enoxaparin Sodium 40 MG/0.4 ML SYRINGE SC SCH (09:08)
--- NOTE | 2019-12-17 14:56 | PDOC.HOSPP ---
- Subjective Subjective: No acute issues. he says that his ex-spouse may have talk to insurance as she was [place]'day[place] - Objective Vital Signs & Weight: Vital Signs (12 hours) Temp Pulse Pulse Pulse Resp BP BP 12/17/19 11:56 97.9 F 82 17 12/17/19 09:07 111/81 12/17/19 09:04 81 77 119/86 12/17/19 07:54 98.4 F 82 16 BP BP Pulse Ox 12/17/19 11:56 128/82 94 L 12/17/19 09:07 12/17/19 09:04 126/80 12/17/19 07:54 117/83 94 L Weight Admit Weight 258 lb 11.2 oz Weight 258 lb 11.2 oz I&O: 12/16/19 12/17/19 12/18/19 06:59 06:59 06:59 Intake Total 1244 Balance 1244 Result Diagrams: 12/09/19 04:31 12/09/19 04:31 Hospitalist ROS - Medication Medications: Active Medications Generic Name Dose Route Start Last Admin Trade Name Freq PRN Reason Stop Dose Admin Acetaminophen 650 mg 12/08/19 20:39 12/16/19 22:45 Tylenol PO 650 mg Q4H PRN Administration Headache/Fever/Mild Pain (1-3) Aspirin 81 mg 12/09/19 09:00 12/17/19 09:07 Ecotrin PO 81 mg DAILY MAURICE Administration Atorvastatin Calcium 80 mg 12/14/19 21:00 12/16/19 21:10 Lipitor PO 80 mg HS MAURICE Administration Bupropion HCl 150 mg 12/11/19 09:00 12/17/19 09:07 Wellbutrin Xl PO 150 mg QAM MAURICE Administration Colchicine 0.6 mg 12/11/19 09:00 12/17/19 09:07 Colchicine PO 0.6 mg DAILY MAURICE Administration Enoxaparin Sodium 40 mg 12/09/19 09:00 12/17/19 09:08 Lovenox SC 40 mg 0900 MAURICE Administration Lisinopril 20 mg 12/16/19 09:00 12/17/19 09:07 Zestril PO 20 mg DAILY MAURICE Administration Pantoprazole Sodium 40 mg 12/09/19 09:00 12/17/19 09:08 Protonix PO 40 mg DAILY MAURICE Administration Sodium Chloride 10 ml 12/08/19 20:39 12/09/19 22:12 Flush - Normal Saline IVF 10 ml PRN PRN Administration Saline Flush Tamsulosin HCl 0.4 mg 12/11/19 09:00 12/17/19 09:07 Flomax PO 0.4 mg DAILY MAURICE Administration - Exam General Appearance: NAD, awake alert Eye: PERRL ENT: normocephalic atraumatic Neck: symmetric Heart: RRR, no murmur Respiratory: CTAB, no rales Gastrointestinal: soft, non-distended, normal bowel sounds, no palpable masses Neurological - other findings: mild RLE weakness Hosp A/P - Plan Acute ischemic stroke -Mild RLE weakness PT/OT/ST Continue ASA and plavix Statin sinus ming -no atrial fib, no NOAC -MRI confirming ischemic stroke, ECHO with diastolic dysfunction, Carotid dopplers without significant stenosis Continue wellbutrin - TSH nl level, a1c 5 (2) GERD (gastroesophageal reflux disease) (3) Anxiety and depression (4) CAD (coronary artery disease) (5) Dyslipidemia -LD of 196 -statin--lipitor increased to 80mg qhs (6) HTN (hypertension) -acei increased to 20 mg daily (7) Obesity (BMI 30.0-34.9) DVT Prophylaxis: Lovenox Code Status: DNAR Disposition: Pending inpatient rehab. none changed. cw current mgmt. [place]. Insurance issue for rehab placement.
[2019-12-17] MEDS: Atorvastatin Calcium 40 MG TAB PO SCH (23:37)
[2019-12-17] MEDS: Acetaminophen 325 MG TAB PO PRN (23:37)
[2019-12-18] MEDS: Aspirin 81 mg Enteric Coated Tablet PO SCH (10:49)
[2019-12-18] MEDS: Lisinopril 20 MG TAB PO SCH (10:49)
[2019-12-18] MEDS: Enoxaparin Sodium 40 MG/0.4 ML SYRINGE SC SCH (10:50)
[2019-12-18] MEDS: Bupropion 150 MG XL TAB PO SCH (10:50)
[2019-12-18] MEDS: Tamsulosin HCl 0.4 MG CAP PO SCH (10:50)
[2019-12-18] MEDS: Colchicine 0.6 MG TAB PO SCH (10:50)
[2019-12-18 12:09] VITALS: BP 115/86; TEMP 97.8
--- NOTE | 2019-12-19 05:01 | DIS ---
DATE OF ADMISSION: 12/08/2019 DATE OF DISCHARGE: 12/18/2019 Jose Alfredo Quesada is a 59-year-old male with past medical history of high blood pressure, atrial arrhythmias, and coronary artery disease, who came to hospital due to slower speech and facial droop. The patient was diagnosed with acute stroke confirmed with MRI, which showed a left periventricular acute infarct. The patient had a full neurological workup with 2D echo and carotid Doppler, which were within normal limits. No source of emboli was detected. The patient was also seen and evaluated by a neurologist. The patient was started in high intensity statin as well as aspirin and Plavix for secondary stroke prevention. The patient was oriented about his condition, treatment, and followup plan, prefers to agree and understand. The patient's rehab was not approved by his medical insurance, for which he will have physical therapy, occupational therapy, and speech therapy at home. He was also discharged with a walker, which the patient did not want to wait and wishes to be brought to his home. He will follow up with his PCP and neurologist. Medication review was done and the patient was agreeing with discharge. Job ID: [id number]
== END 2019-12-18 15:31 | disposition home or self-care (01) | DRG 65 ==
LOC: ERS 14:11 → OBSVTOIN 19:21 → 2SE 19:21
PROVIDERS: ADMIT Emergency Medicine; ATTEND Emergency Medicine
PROC: 4B02XSZ Measurement of Cardiac Pacemaker, External Approach (ICD-10-PCS; principal; 2019-12-10)
DX: I63.9 Cerebral infarction, unspecified (principal); G81.94 Hemiplegia, unspecified affecting left nondominant side; R29.706 NIHSS score 6; Z66 Do not resuscitate; I48.91 Unspecified atrial fibrillation; I10 Essential (primary) hypertension; Z96.651 Presence of right artificial knee joint; F43.10 Post-traumatic stress disorder, unspecified; F31.9 Bipolar disorder, unspecified; F17.210 Nicotine dependence, cigarettes, uncomplicated; R40.2362 Coma scale, best motor response, obeys commands, at arrival to emergency department; R40.2142 Coma scale, eyes open, spontaneous, at arrival to emergency department; R40.2252 Coma scale, best verbal response, oriented, at arrival to emergency department; R29.810 Facial weakness; R47.81 Slurred speech; I25.10 Atherosclerotic heart disease of native coronary artery without angina pectoris; J43.9 Emphysema, unspecified; E78.5 Hyperlipidemia, unspecified; K21.9 Gastro-esophageal reflux disease without esophagitis; E66.9 Obesity, unspecified; R13.10 Dysphagia, unspecified; E78.00 Pure hypercholesterolemia, unspecified; W18.30XA Fall on same level, unspecified, initial encounter; Y92.231 Patient bathroom in hospital as the place of occurrence of the external cause; M54.5 Low back pain; R07.9 Chest pain, unspecified; R47.1 Dysarthria and anarthria; Z95.0 Presence of cardiac pacemaker; Z79.899 Other long term (current) drug therapy; Z98.61 Coronary angioplasty status; Z68.34 Body mass index [BMI] 34.0-34.9, adult; Z91.19 Patient's noncompliance with other medical treatment and regimen
CPT/HCPCS: 36415; 70450; 70551; 72100; 74230; 80048; 80053; 80061; 83036; 84443; 84484; 85025; 93005; 93880; J1650; J2270; S0028

== ENCOUNTER 2020-01-20 10:46 | Outpatient (CLI) | payer BC ==
--- NOTE | 2020-01-20 13:36 | MRI ---
MRI OF LEFT HINDFOOT AND MIDFOOT: 01/20/20 PROVIDED CLINICAL HISTORY: Midfoot pain without injury. FINDINGS: There is conspicuous joint space loss, cortical irregularity and subcortical signal alteration about the talonavicular joint diffusely. Periarticular osteophyte formation is seen. There is an indistinct appearance to the anterior aspect of the middle subtalar joint as well as close apposition of the po sterior-medial aspects of the navicular and osseous excrescence appearing to arise from the anterior margin of the sustentaculum payal. Regional marrow signal appears otherwise normal. No retinal joint effusion is evident. There is preservation of the normal fat signal intensity within the tarsal sinus. Joint spaces appear otherwise preserved. The courses of the regional major neurovascular structures appear unremarkable. There is conspicuous thickening and mild signal heterogeneity involving the plantar aponeurosis at i ts calcaneal attachment with the calcaneal enthesophyte formation noted. There is no surrounding soft tissue or marrow edema. The anterior extensor, medial flexor, peroneal and Achilles tendon appear intact. IMPRESSION: 1. Advanced changes of talonavicular arthritis. 2. Changes about the middle subtalar joint and calcaneonavicular articulation suspicious for coa lition. POS: GOLDIE
== END 2020-01-20 10:47 | disposition home or self-care (01) ==
LOC: MRI 10:46
PROVIDERS: ATTEND Orthopaedic Surgery
DX: M19.072 Primary osteoarthritis, left ankle and foot (principal)

== ENCOUNTER 2020-03-23 15:29 | Emergency (ER) | payer BC ==
[2020-03-23] MEDS ORDERED: Metoclopramide HCl 10 MG/2 ML VIAL ONE (16:24)
[2020-03-23] MEDS ORDERED: diphenhydrAMINE 50 MG/ML VIAL ONE (16:24)
[2020-03-23 16:28] LABS: #Basophils 0.1 thou/uL (0.0-0.2); #Eosinphils 0.6 thou/uL (0.0-0.7); #Lymphocytes 2.7 thou/uL (1.20-3.40); #Neutrophils 4.2 thou/uL (1.40-6.50); %Basophils 1.1 % (0.0-1.0); %Eosinophils 6.5 % (0.0-10.0); %Lymphocytes 31.2 % (21.0-51.0); %Monocytes 11.9 % (0.0-10.0); %Neutrophils 49.4 % (42.0-75.0); Hemoglobin 13.9 g/dL (14.0-18.0); Mean Corpuscular HGB CONC 34.4 g/dL (32.0-36.0); Mean Corpuscular Hemoglobin 29.9 pg (27.0-31.0); Mean Platelet Volume 7.2 fL (7.4-10.4); Platelet Count 173 thou/uL (130-400); RBC Distribution Width 12.1 % (11.5-14.5); Red Blood Cell (RBC) Count 4.66 mill/uL (4.70-6.10); White Blood Cell (WBC) Count 8.6 thou/uL (4.8-10.8)
[2020-03-23 16:34] LABS: INR-International Normal Ratio 0.9; Prothrombin Time 12.6 sec (12.0-14.7)
[2020-03-23 16:35] LABS: PTT 32.4 SEC (22.9-36.1)
[2020-03-23 16:50] LABS: ALT (SGPT) 15 U/L (8-55); AST (SGOT) 14 U/L (5-34); Alkaline Phosphatase 104 U/L (40-110); Anion Gap 13 mmol/L (10-20); BUN (Urea Nitrogen) 15 mg/dL (8.4-25.7); Bilirubin, Total 0.8 mg/dL (0.2-1.2); Calc. Creatinine Clearance 0 mL/min (70-130); Calcium 10.1 mg/dL (7.8-10.44); Carbon Dioxide 24 mmol/L (23-31); Chloride 107 mmol/L (98-107); Estimated GFR-MDRD 77; Globulin 2.9 g/dL (2.4-3.5); Glucose 95 mg/dL (80-115); Potassium 3.8 mmol/L (3.5-5.1); Protein, Total 6.9 g/dL (5.8-8.1); Sodium 140 mmol/L (136-145)
--- NOTE | 2020-03-23 17:18 | CT ---
CT BRAIN NONCONTRAST: DATE: 03/23/2020 HISTORY: 59 year old male with headache FINDINGS: There is no evidence of acute intra-axial or extra-axial hemorrhage. There is no midline shift or any other mass effect. There is no extra-axial fluid collection. There is no evidence of obstructive hydrocephalus. Calvarium is intact. There is an approximately 2 x 1 cm focus of encephalomalacia and gliosis at the anterior upper portion of the left basal ganglia involving portion of left caudate head and left periventricular white matter at the jackson radiata. IMPRESSION: 1. No acute intracranial findings. 2. 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
== END 2020-03-23 17:59 | disposition home or self-care (01) ==
LOC: ERS 15:29
DX: R51 Headache (principal); E78.5 Hyperlipidemia, unspecified; E78.00 Pure hypercholesterolemia, unspecified; I10 Essential (primary) hypertension; F32.9 Major depressive disorder, single episode, unspecified; I48.91 Unspecified atrial fibrillation; F17.210 Nicotine dependence, cigarettes, uncomplicated; F31.9 Bipolar disorder, unspecified; F43.10 Post-traumatic stress disorder, unspecified; Z79.899 Other long term (current) drug therapy; Z86.73 Personal history of transient ischemic attack (TIA), and cerebral infarction without residual deficits
CPT/HCPCS: 36415; 70450; 80053; 85025; 85610; 85730; 96365; 96375; J1200; J2765

== ENCOUNTER 2021-05-24 12:24 | Inpatient (IN) | payer MEDICARE ==
[~2021-05-24 12:24] MED LIST: Iopamidol-370 76% 500 ML 1 ML ONE
[2021-05-24 12:53] LABS: #Basophils 0.1 thou/uL (0.0-0.2); #Eosinphils 0.6 thou/uL (0.0-0.7); #Lymphocytes 2.3 thou/uL (1.20-3.40); #Monocytes 0.7 thou/uL (0.11-0.59); #Neutrophils 4.1 thou/uL (1.40-6.50); %Basophils 0.7 % (0.0-1.0); %Eosinophils 7.3 % (0.0-10.0); %Lymphocytes 30.4 % (21.0-51.0); %Monocytes 8.6 % (0.0-10.0); Hemoglobin 16.4 g/dL (14.0-18.0); Mean Corpuscular HGB CONC 35.2 g/dL (32.0-36.0); Mean Corpuscular Volume 85.1 fL (78.0-98.0); Mean Platelet Volume 7.3 fL (7.4-10.4); Platelet Count 145 thou/uL (130-400); RBC Distribution Width 12.4 % (11.5-14.5); Red Blood Cell (RBC) Count 5.47 mill/uL (4.70-6.10); White Blood Cell (WBC) Count 7.6 thou/uL (4.8-10.8)
[2021-05-24 13:02] LABS: ALT (SGPT) 18 U/L (8-55); AST (SGOT) 16 U/L (5-34); Albumin 4.3 g/dL (3.4-4.8); Alkaline Phosphatase 103 U/L (40-110); Anion Gap 16 mmol/L (10-20); BUN (Urea Nitrogen) 15 mg/dL (8.4-25.7); Bilirubin, Total 1.1 mg/dL (0.2-1.2); CK (CPK) 92 U/L (30-200); Calc. Creatinine Clearance 0 mL/min (70-130); Calcium 10.2 mg/dL (7.8-10.44); Carbon Dioxide 19 mmol/L (23-31); Chloride 107 mmol/L (98-107); Globulin 3.2 g/dL (2.4-3.5); Glucose 131 mg/dL (80-115); Potassium 4.1 mmol/L (3.5-5.1); Protein, Total 7.5 g/dL (5.8-8.1); Sodium 138 mmol/L (136-145)
[2021-05-24 13:04] LABS: PTT 29.2 sec (22.9-36.1)
[2021-05-24] MEDS ORDERED: Aspirin Chewable 81 MG TAB ONE (15:24)
[2021-05-24] MEDS ORDERED: Ondansetron ODT 4 MG TAB PO PRN (16:09)
[2021-05-24] MEDS ORDERED: Acetaminophen 325 MG TAB PO PRN (16:09)
[2021-05-24 16:39] LABS: Acetaminophen Less than 6.0 mcg/mL (10.0-30.0); Alcohol Less than 10 mg/dL (Less than 10); Salicylate Less than 8.0 mg/dL (15.0-30.0)
[2021-05-24] MEDS: Famotidine 20 MG TAB PO SCH (22:20)
[2021-05-24] MEDS: Atorvastatin Calcium 40 MG TAB PO SCH (22:20)
[2021-05-24 22:40] VITALS: BMI 33.9
[2021-05-24 23:59] LABS: Bacteria/HPF None Seen HPF (None Seen); Bilirubin Negative (Negative); Blood, Urine Negative (Negative); Clarity Clear (Clear); Glucose, Urine (Dipstick) Normal (Negative); Ketone, Urine Negative (Negative); Leukocyte Negative Leu/uL (Negative); Nitrite Negative (Negative); Protein, Urine (Dipstick) Negative (Neg-Trace); RBC/HPF 0-3 HPF (0-3); Specific Gravity, Urine 1.036 (1.002-1.036); Squamous Epithelial 0-3 HPF (0-3); Urobilinogen Normal mg/dL (Less than 2); pH, Urine 6.5 (5.0-9.0)
[2021-05-25 00:07] LABS: Amphetamine Not Detected (NotDetected); Barbiturates Screen Not Detected (NotDetected); Benzodiazepine Screen Not Detected (NotDetected); Cocaine Metabolite Screen Not Detected (NotDetected); Medtox Control Line Valid? VALID (VALID); Medtox Reader # READER 4; Methadone Not Detected (NotDetected); Methamphetamine Not Detected (NotDetected); Opiate Screen Detected (NotDetected); Oxycodone Screen Not Detected (NotDetected); Phencyclidine (PCP) Not Detected (NotDetected); THC/Cannabinoid Screen Not Detected (NotDetected); Tricyclic Screen Not Detected (NotDetected)
[2021-05-25 05:41] LABS: #Basophils 0.1 thou/uL (0.0-0.2); #Eosinphils 0.6 thou/uL (0.0-0.7); #Lymphocytes 2.2 thou/uL (1.20-3.40); #Monocytes 0.7 thou/uL (0.11-0.59); #Neutrophils 3.7 thou/uL (1.40-6.50); %Basophils 1.3 % (0.0-1.0); %Eosinophils 8.1 % (0.0-10.0); %Lymphocytes 29.9 % (21.0-51.0); %Neutrophils 50.7 % (42.0-75.0); Hemoglobin 15.2 g/dL (14.0-18.0); Mean Corpuscular HGB CONC 34.2 g/dL (32.0-36.0); Mean Corpuscular Hemoglobin 29.4 pg (27.0-31.0); Mean Platelet Volume 7.2 fL (7.4-10.4); Platelet Count 152 thou/uL (130-400); RBC Distribution Width 12.4 % (11.5-14.5); Red Blood Cell (RBC) Count 5.16 mill/uL (4.70-6.10); White Blood Cell (WBC) Count 7.3 thou/uL (4.8-10.8)
[2021-05-25 05:56] LABS: Anion Gap 12 mmol/L (10-20); BUN (Urea Nitrogen) 17 mg/dL (8.4-25.7); Calc. Creatinine Clearance 118 mL/min (70-130); Carbon Dioxide 25 mmol/L (23-31); Cardiac Risk 6.2 (Less than 4.5); Chloride 107 mmol/L (98-107); Cholesterol 243 mg/dl (< 200 Desired); Glucose 106 mg/dL (80-115); HDL Cholesterol 39 mg/dL (>60 Neg Risk); LDL Cholesterol, Calculated 136 mg/dL; Sodium 140 mmol/L (136-145); Triglycerides 340 mg/dL (Less than 150)
[2021-05-25 06:19] LABS: Thyroid Stimulating Hormone 0.9079 uIU/mL (0.35-4.94)
[2021-05-25] MEDS: Famotidine 20 MG TAB PO SCH ×2 (12:37→22:13)
[2021-05-25] MEDS: Aspirin 81 mg Enteric Coated Tablet PO SCH (12:37)
[2021-05-25] MEDS: Prochlorperazine 10 MG/2 ML VIAL IVP SCH ×2 (12:37→18:15)
[2021-05-25] MEDS: diphenhydrAMINE 50 MG/ML VIAL IVP SCH ×2 (12:37→18:15)
[2021-05-25] MEDS ORDERED: Ketorolac Tromethamine 30 MG/ML VIAL IVP SCH (15:45)
[2021-05-25] MEDS: Gabapentin 400 MG CAP PO SCH (22:13)
[2021-05-25] MEDS: Atorvastatin Calcium 40 MG TAB PO SCH (22:13)
[2021-05-26] MEDS: diphenhydrAMINE 50 MG/ML VIAL IVP SCH ×2 (00:44→06:41)
[2021-05-26] MEDS: Prochlorperazine 10 MG/2 ML VIAL IVP SCH ×2 (00:44→06:42)
[2021-05-26] MEDS: Gabapentin 400 MG CAP PO SCH (10:39)
[2021-05-26] MEDS: Famotidine 20 MG TAB PO SCH (10:39)
[2021-05-26] MEDS: Aspirin 81 mg Enteric Coated Tablet PO SCH (10:39)
[2021-05-26 15:35] VITALS: BP 147/91; TEMP 97.9
== END 2021-05-26 17:40 | disposition home health service (06) | DRG 57 ==
LOC: ERS 12:24 → 2SE 15:59
PROVIDERS: ADMIT Internal Medicine; ATTEND Internal Medicine
DX: I69.320 Aphasia following cerebral infarction (principal); I69.354 Hemiplegia and hemiparesis following cerebral infarction affecting left non-dominant side; I69.392 Facial weakness following cerebral infarction; F17.210 Nicotine dependence, cigarettes, uncomplicated; G62.9 Polyneuropathy, unspecified; G43.909 Migraine, unspecified, not intractable, without status migrainosus; I48.91 Unspecified atrial fibrillation; I25.10 Atherosclerotic heart disease of native coronary artery without angina pectoris; E78.5 Hyperlipidemia, unspecified; I10 Essential (primary) hypertension; E66.9 Obesity, unspecified; I67.1 Cerebral aneurysm, nonruptured; I49.5 Sick sinus syndrome; M10.9 Gout, unspecified; F43.10 Post-traumatic stress disorder, unspecified; F31.9 Bipolar disorder, unspecified; Z96.651 Presence of right artificial knee joint; Z95.810 Presence of automatic (implantable) cardiac defibrillator; Z68.33 Body mass index [BMI] 33.0-33.9, adult; Z79.899 Other long term (current) drug therapy; Z79.82 Long term (current) use of aspirin; Z79.01 Long term (current) use of anticoagulants
CPT/HCPCS: 36415; 36416; 70450; 70496; 70498; 70551; 71045; 80048; 80053; 80061; 80306; 80307; 81001; 82550; 82607; 82746; 83735; 84443; 84484; 85025; 85610; 85730; 93005; 93306; 95712; 95819; 95957; J0780; J1200; J1885; Q9967

== ENCOUNTER 2022-03-16 12:27 | Inpatient (IN) | payer OTHER, MEDICARE ==
[2022-03-16 12:50] LABS: #Eosinphils 0.7 thou/uL (0.0-0.7); #Lymphocytes 4.6 thou/uL (1.20-3.40); #Monocytes 1.3 thou/uL (0.11-0.59); #Neutrophils 4.8 thou/uL (1.40-6.50); %Basophils 0.4 % (0.0-1.0); %Lymphocytes 40.2 % (21.0-51.0); %Monocytes 11.5 % (0.0-10.0); %Neutrophils 41.9 % (42.0-75.0); Mean Corpuscular HGB CONC 33.9 g/dL (32.0-36.0); Mean Corpuscular Hemoglobin 29.8 pg (27.0-31.0); Mean Platelet Volume 7.2 fL (7.4-10.4); Platelet Count 209 thou/uL (130-400); Red Blood Cell (RBC) Count 5.03 mill/uL (4.70-6.10); White Blood Cell (WBC) Count 11.4 thou/uL (4.8-10.8)
[2022-03-16] MEDS ORDERED: Ondansetron PF 4 MG/2 ML Vial ONE ×2 (12:54→15:00)
[2022-03-16 13:01] LABS: ALT (SGPT) 15 U/L (8-55); AST (SGOT) 22 U/L (5-34); Alkaline Phosphatase 104 U/L (40-110); Anion Gap 14 mmol/L (10-20); BUN (Urea Nitrogen) 20 mg/dL (8.4-25.7); Bilirubin, Total 1.1 mg/dL (0.2-1.2); Calc. Creatinine Clearance 0 mL/min (70-130); Calcium 9.9 mg/dL (7.8-10.44); Carbon Dioxide 21 mmol/L (23-31); Chloride 108 mmol/L (98-107); Globulin 2.6 g/dL (2.4-3.5); Glucose 117 mg/dL (80-115); Lipase 49 U/L (8-78); Potassium 4.3 mmol/L (3.5-5.1); Protein, Total 6.6 g/dL (5.8-8.1); Sodium 139 mmol/L (136-145)
[2022-03-16] MEDS ORDERED: Fentanyl 100 MCG/2 ML VIAL ONE ×3 (13:23→15:27)
[2022-03-16 13:24] LABS: INR-International Normal Ratio 1.1; Prothrombin Time 13.8 sec (12.0-14.7)
[2022-03-16 13:26] LABS: PTT 27.4 sec (22.9-36.1)
[2022-03-16] MEDS ORDERED: Dextrose 50% Abboject 50 ML SYRINGE SLOW IVP PRN (13:49)
[2022-03-16] MEDS ORDERED: Ondansetron PF 4 MG/2 ML Vial IVP PRN (13:49)
[2022-03-16] MEDS ORDERED: Dextrose 5% in Water 1,000 ML IV PRN (13:49)
[2022-03-16] MEDS ORDERED: Metoclopramide HCl 10 MG/2 ML VIAL ONE (13:50)
[2022-03-16] MEDS ORDERED: Albumin 5% 0 ML ONE (14:09)
[2022-03-16] MEDS ORDERED: Diazepam 5 MG TAB ONE (14:14)
[2022-03-16] MEDS ORDERED: Acetaminophen 325 MG TAB PO SCH (14:15)
[2022-03-16] MEDS ORDERED: traMADol HCl 50 MG TAB PO SCH (14:15)
[2022-03-16] MEDS ORDERED: Norepinephrine 4 MG/4 ML VIAL ONE (14:20)
[2022-03-16] MEDS ORDERED: Phenylephrine 10 MG/ML VIAL ONE ×2 (14:20→16:09)
[2022-03-16] MEDS ORDERED: Fentanyl 250 MCG/5 ML VIAL ONE (14:20)
[2022-03-16] MEDS ORDERED: Neomycin-Polymyxin 1 ML AMP ONE ×2 (14:30→16:11)
[2022-03-16] MEDS ORDERED: Dexmedetomidine 200 MCG/2 ML VIAL ONE (14:42)
[2022-03-16] MEDS ORDERED: Tranexamic Acid 1,000 MG/10 ML VIAL ONE (14:42)
[2022-03-16] MEDS ORDERED: ceFAZolin 2 GM/Dextrose 50 ML 2 GM in Premix Bag 1 BAG IVPB SCH (14:45)
[2022-03-16] MEDS ORDERED: Iopamidol-370 76% 500 ML 1 ML ONE (14:47)
[2022-03-16 14:56] LABS: SARS-CoV-2 NAA Rapid Test Not Detected (NotDetected)
[2022-03-16] MEDS ORDERED: Succinylcholine 200 MG/10 ml SYRINGE FS ONE (15:00)
[2022-03-16] MEDS ORDERED: PROPOFOL 200 MG/20 ML VIAL ONE (15:00)
[2022-03-16] MEDS ORDERED: Lidocaine 1% PF 5 ML VIAL ONE (15:00)
[2022-03-16] MEDS ORDERED: Dexamethasone 20 MG/5 ML VIAL ONE (15:00)
[2022-03-16] MEDS ORDERED: Rocuronium Bromide 10 MG/ML (10ML VIAL) ONE (15:00)
[2022-03-16] MEDS ORDERED: PHENYLEPHRINE-NS 100 MCG/ML 10 ML SYRINGE ONE (15:00)
[2022-03-16] MEDS ORDERED: ePHEDrine 50 MG/ML VIAL ONE (15:00)
[2022-03-16] MEDS ORDERED: NEOMYCIN-POLYMYXIN-HC EAR SUSP 200 DROP/10 ML BOT ONE (16:08)
[2022-03-16] MEDS ORDERED: Midazolam HCl 2 mg/2 ml Vial ONE ×2 (16:39→18:04)
[2022-03-16] MEDS ORDERED: cefTRIAXone\\ROCEPHIN 1 GM VIAL ONE ×2 (17:04)
[2022-03-16] MEDS ORDERED: Rocuronium Bromide 50 MG/5 ML VIAL ONE (18:04)
[2022-03-16] MEDS ORDERED: Propofol 1,000 MG/100 ML VIAL IV ONE (19:00)
[2022-03-16] MEDS ORDERED: ceFAZolin (BATCH) 2 GM in Premix Bag 1 BAG IVPB SCH (19:45)
[2022-03-16] MEDS ORDERED: Lorazepam 2 MG/ML VIAL SLOW IVP PRN (20:00)
[2022-03-16] MEDS ORDERED: DISCONTINUE PREVIOUS NARCOTIC PAIN MEDICATIONS AND BENZODIAZEPINES FS SCH (20:00)
[2022-03-16] MEDS ORDERED: fentaNYL Citrate-0.9 % NaCl/PF 100 ML IV SCH (20:00)
[2022-03-16] MEDS ORDERED: Morphine 2 MG/ML VIAL SLOW IVP PRN (20:00)
[2022-03-16] MEDS ORDERED: Fentanyl BOLUS 250 ML IVPB PRN (20:00)
[2022-03-16] MEDS ORDERED: Propofol 1,000 MG/100 ML VIAL IV PRN (20:00)
[2022-03-16] MEDS ORDERED: Propofol BOLUS 1,000 MG/100 ML VIAL IV PRN (20:00)
[2022-03-16] MEDS: Famotidine 20 MG TAB PO SCH (20:09)
[2022-03-16] MEDS: traMADol HCl 50 MG TAB PO SCH (20:09)
[2022-03-16 20:12] LABS: Magnesium 1.7 mg/dL (1.6-2.6)
[2022-03-16] MEDS: Lactated Ringer's 1,000 ML IV SCH ×2 (20:27→21:13)
[2022-03-16] MEDS: cefTRIAXone\\ROCEPHIN 2 GM in Sodium Chloride 0.9% 100 ML IVPB SCH (20:28)
[2022-03-16] MEDS: Acetaminophen 325 MG TAB PO SCH ×2 (20:29→21:13)
[2022-03-16 20:57] LABS: #Lymphocytes 0.8 thou/uL (1.20-3.40); #Monocytes 1.3 thou/uL (0.11-0.59); #Neutrophils 11.2 thou/uL (1.40-6.50); %Eosinophils 0.1 % (0.0-10.0); %Lymphocytes 6.1 % (21.0-51.0); %Monocytes 9.7 % (0.0-10.0); Hemoglobin 13.4 g/dL (14.0-18.0); Mean Corpuscular HGB CONC 33.7 g/dL (32.0-36.0); Mean Corpuscular Hemoglobin 30.2 pg (27.0-31.0); Mean Corpuscular Volume 89.6 fL (78.0-98.0); Mean Platelet Volume 6.8 fL (7.4-10.4); Platelet Count 183 thou/uL (130-400); RBC Distribution Width 12.2 % (11.5-14.5); Red Blood Cell (RBC) Count 4.44 mill/uL (4.70-6.10); White Blood Cell (WBC) Count 13.3 thou/uL (4.8-10.8)
[2022-03-16 21:25] LABS: Actual Bicarbonate (HCO3a) 21.4 mEq/L (22-28); Base Excess (BEa) -3.7 mEq/L (-2.0 to +3.0); CO2 Tension 39.2 mmHg (35.0-45.0); Calcium, Ionized (arterial) 1.22 mmol/L (1.12-1.30); Carboxyhemoglobin (COHb) 0.4 gm% (0.0-3.0); Hemoglobin (Hb) 13.6 g/dL (14.0-18.0); Potassium - ABG Lab 4.72 mmol/L (3.70-5.30); pH, Arterial 7.36 (7.35-7.45)
[2022-03-16 21:26] LABS: Puncture Site ALINE
[2022-03-17] MEDS: Acetaminophen 325 MG TAB PO SCH ×4 (02:01→21:00)
[2022-03-17] MEDS: traMADol HCl 50 MG TAB PO SCH ×2 (02:02→09:51)
[2022-03-17 03:53] LABS: #Lymphocytes 0.7 thou/uL (1.20-3.40); #Monocytes 1.3 thou/uL (0.11-0.59); #Neutrophils 8.1 thou/uL (1.40-6.50); %Basophils 0.3 % (0.0-1.0); %Eosinophils 0.1 % (0.0-10.0); %Lymphocytes 7.3 % (21.0-51.0); %Monocytes 12.5 % (0.0-10.0); %Neutrophils 79.7 % (42.0-75.0); Hemoglobin 11.8 g/dL (14.0-18.0); Mean Corpuscular HGB CONC 34.8 g/dL (32.0-36.0); Mean Corpuscular Hemoglobin 31.2 pg (27.0-31.0); Mean Corpuscular Volume 89.7 fL (78.0-98.0); Mean Platelet Volume 7.2 fL (7.4-10.4); Platelet Count 161 thou/uL (130-400); RBC Distribution Width 12.3 % (11.5-14.5); Red Blood Cell (RBC) Count 3.79 mill/uL (4.70-6.10); White Blood Cell (WBC) Count 10.1 thou/uL (4.8-10.8)
[2022-03-17] MEDS: Lactated Ringer's 1,000 ML IV SCH ×2 (04:00→16:46)
[2022-03-17 04:15] LABS: Anion Gap 13 mmol/L (10-20); BUN (Urea Nitrogen) 19 mg/dL (8.4-25.7); Calc. Creatinine Clearance 104 mL/min (70-130); Calcium 8.9 mg/dL (7.8-10.44); Carbon Dioxide 20 mmol/L (23-31); Chloride 109 mmol/L (98-107); Glucose 160 mg/dL (80-115); Magnesium 1.7 mg/dL (1.6-2.6); Phosphorus 2.8 mg/dL (2.3-4.7); Potassium 4.5 mmol/L (3.5-5.1); Sodium 137 mmol/L (136-145)
[2022-03-17] MEDS ORDERED: ceFAZolin (BATCH) 2 GM in Premix Bag 1 BAG IVPB SCH (08:30)
[2022-03-17] MEDS ORDERED: Magnesium 2 GM/50 ML(in water) 2 GM in Premix Bag 1 BAG IVPB SCH (09:15)
[2022-03-17] MEDS: Morphine 2 MG/ML VIAL SLOW IVP PRN ×3 (10:33→21:07)
[2022-03-17] MEDS ORDERED: Morphine 2 MG/ML VIAL SLOW IVP SCH (11:45)
[2022-03-17] MEDS: Famotidine 20 MG TAB PO SCH ×2 (11:58→21:01)
[2022-03-17] MEDS: HYDROcodone/Acetaminophen 10/325 mg Tablet PO SCH ×3 (14:08→21:34)
[2022-03-17] MEDS: Gabapentin 300 MG CAP PO SCH ×2 (15:55→21:01)
[2022-03-17] MEDS: cefTRIAXone\\ROCEPHIN 2 GM in Sodium Chloride 0.9% 100 ML IVPB SCH (16:45)
[2022-03-18] MEDS: Morphine 2 MG/ML VIAL SLOW IVP PRN (00:11)
[2022-03-18] MEDS: HYDROcodone/Acetaminophen 10/325 mg Tablet PO SCH ×3 (02:34→10:30)
[2022-03-18] MEDS: Acetaminophen 325 MG TAB PO SCH ×3 (03:55→20:51)
[2022-03-18 06:12] LABS: Anion Gap 12 mmol/L (10-20); BUN (Urea Nitrogen) 24 mg/dL (8.4-25.7); Calc. Creatinine Clearance 101 mL/min (70-130); Carbon Dioxide 24 mmol/L (23-31); Chloride 106 mmol/L (98-107); Glucose 131 mg/dL (80-115); Phosphorus 2.7 mg/dL (2.3-4.7); Potassium 4.7 mmol/L (3.5-5.1); Sodium 137 mmol/L (136-145)
[2022-03-18 06:18] LABS: Band 1 % (5-11); Hemoglobin 10.2 g/dL (14.0-18.0); Lymphocytes 15 % (21-51); MDiff Complete? YES; Mean Corpuscular HGB CONC 34.9 g/dL (32.0-36.0); Mean Corpuscular Hemoglobin 31.9 pg (27.0-31.0); Mean Corpuscular Volume 91.5 fL (78.0-98.0); Mean Platelet Volume 7.3 fL (7.4-10.4); Monocytes 10 % (0-10); Neutrophil 74 % (42-75); Platelet Count 134 thou/uL (130-400); Platelet Morphology Comment Appears Adequate; RBC Distribution Width 12.2 % (11.5-14.5); RBC Morphology Normal; Red Blood Cell (RBC) Count 3.18 mill/uL (4.70-6.10)
[2022-03-18] MEDS ORDERED: fentaNYL Citrate/PF 100 MCG/2 ML SYRINGE ONE (07:00)
[2022-03-18] MEDS ORDERED: Midazolam HCl 2 mg/2 ml Vial ONE (07:00)
[2022-03-18] MEDS ORDERED: Lidocaine 2% Jelly 5 ML TUBE ONE (07:01)
[2022-03-18] MEDS ORDERED: Bupivacaine 0.25% 10 ML VIAL ONE (07:10)
[2022-03-18] MEDS ORDERED: Lidocaine 1% w/Epinephrine 1:100K 20 ML VIAL ONE (07:10)
[2022-03-18] MEDS ORDERED: Fentanyl 100 MCG/2 ML VIAL ONE ×2 (07:45→10:56)
[2022-03-18] MEDS ORDERED: Sodium Chloride 0.9% 100 ML ONE (07:52)
[2022-03-18] MEDS ORDERED: CEFAZOLIN 1 GM VIAL ONE ×2 (07:52→07:53)
[2022-03-18] MEDS ORDERED: Famotidine/PF 20 mg/2ml Vial ONE (08:09)
[2022-03-18] MEDS ORDERED: Ondansetron PF 4 MG/2 ML Vial ONE (08:09)
[2022-03-18] MEDS ORDERED: PROPOFOL 200 MG/20 ML VIAL ONE (08:11)
[2022-03-18] MEDS ORDERED: Succinylcholine 200 MG/10 ml SYRINGE FS ONE (08:11)
[2022-03-18] MEDS ORDERED: Glycopyrrolate 0.2 MG/ML 5 ML SYRINGE ONE (08:11)
[2022-03-18] MEDS ORDERED: Metoclopramide HCl 10 MG/2 ML VIAL ONE (08:11)
[2022-03-18] MEDS ORDERED: Rocuronium Bromide 10 MG/ML (10ML VIAL) ONE (08:11)
[2022-03-18] MEDS ORDERED: Lidocaine 1% PF 5 ML VIAL ONE (08:11)
[2022-03-18] MEDS ORDERED: Dexamethasone 20 MG/5 ML VIAL ONE (08:11)
[2022-03-18] MEDS ORDERED: PHENYLEPHRINE-NS 100 MCG/ML 10 ML SYRINGE ONE (08:11)
[2022-03-18] MEDS: Famotidine 20 MG TAB PO SCH ×2 (08:42→20:52)
[2022-03-18] MEDS: Gabapentin 300 MG CAP PO SCH ×3 (08:42→20:52)
[2022-03-18] MEDS ORDERED: Ondansetron HCl/PF 4 MG/2 ML Vial IVP PRN (08:53)
[2022-03-18] MEDS ORDERED: HYDROmorphone 2 MG/ML VIAL SLOW IVP PRN (08:53)
[2022-03-18] MEDS ORDERED: Promethazine HCl 25 MG/ML VIAL IVPB PRN (08:53)
[2022-03-18] MEDS ORDERED: Promethazine HCl 25 MG/ML VIAL IM PRN ×2 (08:53→10:45)
[2022-03-18] MEDS ORDERED: Phenylephrine 10 MG/ML VIAL ONE (09:06)
[2022-03-18] MEDS ORDERED: Zolpidem Tartrate 5 MG TAB PO PRN (10:45)
[2022-03-18] MEDS ORDERED: Naloxone HCl 0.4 mg/ml Vial IV PRN (10:45)
[2022-03-18] MEDS ORDERED: diphenhydrAMINE 25 MG CAP PO PRN (10:45)
[2022-03-18] MEDS ORDERED: diphenhydrAMINE 50 MG/ML VIAL IVP PRN (10:45)
[2022-03-18] MEDS ORDERED: diphenhydrAMINE 50 MG/ML VIAL IM PRN (10:45)
[2022-03-18] MEDS ORDERED: fentaNYL Citrate/PF 2,000 MCG in Sodium Chloride 0.9% 60 ML IV PRN (10:45)
[2022-03-18] MEDS ORDERED: Morphine 2 MG/ML VIAL SLOW IVP PRN (10:46)
[2022-03-18] MEDS: Communication Order-Pharmacy FS SCH (11:46)
[2022-03-18] MEDS ORDERED: ceFAZolin 2 GM/Dextrose 50 ML 2 GM in Premix Bag 1 BAG IVPB SCH (14:00)
[2022-03-18] MEDS: ceFAZolin (BATCH) 2 GM in Premix Bag 1 BAG IVPB SCH ×2 (14:41→22:50)
[2022-03-18] MEDS: cefTRIAXone\\ROCEPHIN 2 GM in Sodium Chloride 0.9% 100 ML IVPB SCH (16:26)
[2022-03-18] MEDS: Ondansetron PF 4 MG/2 ML Vial IVP PRN (23:54)
[2022-03-19] MEDS: Acetaminophen 325 MG TAB PO SCH ×2 (04:17→12:25)
[2022-03-19 05:40] LABS: #Lymphocytes 1.1 thou/uL (1.20-3.40); #Neutrophils 11.1 thou/uL (1.40-6.50); %Basophils 0.1 % (0.0-1.0); %Eosinophils 0.3 % (0.0-10.0); %Lymphocytes 7.9 % (21.0-51.0); %Monocytes 14.2 % (0.0-10.0); %Neutrophils 77.6 % (42.0-75.0); Mean Corpuscular HGB CONC 33.7 g/dL (32.0-36.0); Mean Platelet Volume 7.2 fL (7.4-10.4); Platelet Count 146 thou/uL (130-400); RBC Distribution Width 12.2 % (11.5-14.5); White Blood Cell (WBC) Count 14.4 thou/uL (4.8-10.8)
[2022-03-19 06:05] LABS: Anion Gap 12 mmol/L (10-20); BUN (Urea Nitrogen) 25 mg/dL (8.4-25.7); Calc. Creatinine Clearance 111 mL/min (70-130); Carbon Dioxide 25 mmol/L (23-31); Chloride 105 mmol/L (98-107); Glucose 148 mg/dL (80-115); Magnesium 2.1 mg/dL (1.6-2.6); Phosphorus 2.2 mg/dL (2.3-4.7); Potassium 4.9 mmol/L (3.5-5.1); Sodium 137 mmol/L (136-145)
[2022-03-19] MEDS: Ondansetron PF 4 MG/2 ML Vial IVP PRN ×2 (08:02→20:53)
[2022-03-19] MEDS: Enoxaparin Sodium 40 MG/0.4 ML SYRINGE SC SCH ×2 (08:03→08:07)
[2022-03-19] MEDS: Gabapentin 300 MG CAP PO SCH (08:07)
[2022-03-19] MEDS: Famotidine 20 MG TAB PO SCH (08:07)
[2022-03-19] MEDS ORDERED: Sodium Chloride 0.9% 1,000 ML IV SCH (11:45)
[2022-03-19] MEDS ORDERED: SUMAtriptan Succinate 50 MG TAB PO PRN (12:11)
[2022-03-19] MEDS: Communication Order-Pharmacy FS SCH (12:26)
[2022-03-19] MEDS ORDERED: FLUoxetine HCl 20 MG CAP PO SCH (12:30)
[2022-03-19] MEDS ORDERED: Cyclobenzaprine 10 MG TAB PO PRN (13:18)
[2022-03-19] MEDS ORDERED: Ketorolac Tromethamine 30 MG/ML VIAL IVP SCH (14:00)
[2022-03-19] MEDS ORDERED: traMADol HCl 50 MG TAB PO SCH (14:00)
[2022-03-19] MEDS ORDERED: Acetaminophen/Codeine 30-300mg Tablet PO SCH (14:15)
[2022-03-19] MEDS: cefTRIAXone\\ROCEPHIN 2 GM in Sodium Chloride 0.9% 100 ML IVPB SCH (16:57)
[2022-03-19] MEDS: Ketorolac Tromethamine 30 MG/ML VIAL IVP SCH ×2 (17:00→23:52)
[2022-03-19] MEDS ORDERED: Acetaminophen 500 MG TAB PO SCH (20:00)
[2022-03-20] MEDS: Ketorolac Tromethamine 30 MG/ML VIAL IVP SCH ×3 (05:33→17:04)
[2022-03-20 06:32] LABS: Anion Gap 14 mmol/L (10-20); BUN (Urea Nitrogen) 28 mg/dL (8.4-25.7); Calc. Creatinine Clearance 115 mL/min (70-130); Calcium 8.7 mg/dL (7.8-10.44); Carbon Dioxide 22 mmol/L (23-31); Chloride 106 mmol/L (98-107); Glucose 93 mg/dL (80-115); Magnesium 2.1 mg/dL (1.6-2.6); Phosphorus 2.4 mg/dL (2.3-4.7); Potassium 4.6 mmol/L (3.5-5.1); Sodium 137 mmol/L (136-145)
[2022-03-20 07:21] LABS: #Basophils 0.1 thou/uL (0.0-0.2); #Eosinphils 0.5 thou/uL (0.0-0.7); #Lymphocytes 1.8 thou/uL (1.20-3.40); #Monocytes 1.4 thou/uL (0.11-0.59); #Neutrophils 6.7 thou/uL (1.40-6.50); %Basophils 0.5 % (0.0-1.0); %Eosinophils 4.3 % (0.0-10.0); %Lymphocytes 17.3 % (21.0-51.0); %Monocytes 13.2 % (0.0-10.0); %Neutrophils 64.7 % (42.0-75.0); Hemoglobin 7.8 g/dL (14.0-18.0); Mean Corpuscular HGB CONC 32.8 g/dL (32.0-36.0); Mean Corpuscular Hemoglobin 30.6 pg (27.0-31.0); Mean Corpuscular Volume 93.3 fL (78.0-98.0); Mean Platelet Volume 7.1 fL (7.4-10.4); Platelet Count 169 thou/uL (130-400); RBC Distribution Width 12.4 % (11.5-14.5); Red Blood Cell (RBC) Count 2.56 mill/uL (4.70-6.10); White Blood Cell (WBC) Count 10.4 thou/uL (4.8-10.8)
[2022-03-20] MEDS: Ferrous Sulfate 325 MG TAB PO SCH ×2 (08:14→16:59)
[2022-03-20] MEDS: Famotidine 20 MG TAB PO SCH (08:15)
[2022-03-20] MEDS: Atorvastatin Calcium 40 MG TAB PO SCH (08:15)
[2022-03-20] MEDS: Ascorbic Acid 500 mg Chewable Tablet PO SCH ×2 (08:15→21:06)
[2022-03-20] MEDS: Enoxaparin Sodium 40 MG/0.4 ML SYRINGE SC SCH (08:15)
[2022-03-20] MEDS: Gabapentin 400 MG CAP PO SCH (08:15)
[2022-03-20] MEDS ORDERED: FLUoxetine HCl 20 MG CAP PO SCH (09:00)
[2022-03-20] MEDS: traMADol HCl 50 MG TAB PO SCH (09:19)
[2022-03-20] MEDS: HYDROcodone/Acetaminophen 10/325 mg Tablet PO SCH ×6 (10:01→21:07)
[2022-03-20] MEDS: Communication Order-Pharmacy FS SCH (11:50)
[2022-03-20] MEDS ORDERED: cefTRIAXone\\ROCEPHIN 2 GM in Sodium Chloride 0.9% 100 ML IVPB SCH (18:00)
[2022-03-20] MEDS: cefTRIAXone\\ROCEPHIN 2 GM in Sodium Chloride 0.9% 100 ML IVPB SCH (18:23)
[2022-03-21] MEDS: HYDROcodone/Acetaminophen 10/325 mg Tablet PO SCH ×6 (02:24→20:52)
[2022-03-21 05:47] LABS: #Eosinphils 0.6 thou/uL (0.0-0.7); #Lymphocytes 1.5 thou/uL (1.20-3.40); #Neutrophils 5.2 thou/uL (1.40-6.50); %Basophils 0.5 % (0.0-1.0); %Eosinophils 7.2 % (0.0-10.0); %Lymphocytes 17.5 % (21.0-51.0); %Monocytes 12.2 % (0.0-10.0); %Neutrophils 62.7 % (42.0-75.0); Hemoglobin 7.8 g/dL (14.0-18.0); Mean Corpuscular HGB CONC 33.2 g/dL (32.0-36.0); Mean Corpuscular Volume 93.2 fL (78.0-98.0); Mean Platelet Volume 6.7 fL (7.4-10.4); Platelet Count 175 thou/uL (130-400); RBC Distribution Width 12.8 % (11.5-14.5); White Blood Cell (WBC) Count 8.3 thou/uL (4.8-10.8)
[2022-03-21] MEDS: FLUoxetine HCl 20 MG CAP PO SCH (06:06)
[2022-03-21 06:23] LABS: Anion Gap 9 mmol/L (10-20); BUN (Urea Nitrogen) 24 mg/dL (8.4-25.7); Calc. Creatinine Clearance 123 mL/min (70-130); Calcium 8.7 mg/dL (7.8-10.44); Carbon Dioxide 27 mmol/L (23-31); Chloride 104 mmol/L (98-107); Glucose 117 mg/dL (80-115); Magnesium 1.9 mg/dL (1.6-2.6); Phosphorus 3.1 mg/dL (2.3-4.7); Potassium 3.8 mmol/L (3.5-5.1); Sodium 136 mmol/L (136-145)
[2022-03-21] MEDS: Atorvastatin Calcium 40 MG TAB PO SCH (09:14)
[2022-03-21] MEDS: Gabapentin 400 MG CAP PO SCH (09:14)
[2022-03-21] MEDS: Polyethylene Glycol 3350 17 GM Packet PO SCH (09:14)
[2022-03-21] MEDS: Ferrous Sulfate 325 MG TAB PO SCH ×2 (09:15→18:19)
[2022-03-21] MEDS: Famotidine 20 MG TAB PO SCH ×2 (09:15→20:52)
[2022-03-21] MEDS: Ascorbic Acid 500 mg Chewable Tablet PO SCH ×2 (09:15→20:52)
[2022-03-21] MEDS: Senokot S 8.6-50 MG TAB PO SCH ×2 (09:15→20:51)
[2022-03-21] MEDS: Enoxaparin Sodium 40 MG/0.4 ML SYRINGE SC SCH (09:16)
[2022-03-21] MEDS: Ibuprofen 200 MG TAB PO SCH ×2 (11:51→18:19)
[2022-03-21] MEDS: Communication Order-Pharmacy FS SCH (11:53)
[2022-03-21] MEDS ORDERED: Magnesium Citrate 300 ML BOT PO SCH (13:00)
[2022-03-22] MEDS: Ibuprofen 200 MG TAB PO SCH ×3 (02:22→18:51)
[2022-03-22] MEDS: HYDROcodone/Acetaminophen 10/325 mg Tablet PO SCH ×6 (02:22→22:00)
[2022-03-22 05:48] LABS: Anion Gap 10 mmol/L (10-20); BUN (Urea Nitrogen) 20 mg/dL (8.4-25.7); Calc. Creatinine Clearance 147 mL/min (70-130); Calcium 9.4 mg/dL (7.8-10.44); Carbon Dioxide 28 mmol/L (23-31); Chloride 107 mmol/L (98-107); Glucose 113 mg/dL (80-115); Potassium 3.9 mmol/L (3.5-5.1); Sodium 141 mmol/L (136-145)
[2022-03-22] MEDS: FLUoxetine HCl 20 MG CAP PO SCH (06:02)
[2022-03-22 07:47] LABS: Hemoglobin 8.4 g/dL (14.0-18.0); Mean Corpuscular HGB CONC 33.7 g/dL (32.0-36.0); Mean Corpuscular Hemoglobin 31.7 pg (27.0-31.0); Mean Corpuscular Volume 93.8 fL (78.0-98.0); Mean Platelet Volume 6.6 fL (7.4-10.4); Platelet Count 206 thou/uL (130-400); RBC Distribution Width 12.9 % (11.5-14.5); Red Blood Cell (RBC) Count 2.64 mill/uL (4.70-6.10); White Blood Cell (WBC) Count 9.2 thou/uL (4.8-10.8)
[2022-03-22 08:04] LABS: Band 7 % (5-11); Eosinophils 9 % (0-10); Lymphocytes 22 % (21-51); MDiff Complete? YES; Metamyelocyte 4 % (0-0); Monocytes 11 % (0-10); Neutrophil 47 % (42-75); Polychromasia MODERATE = 3-4 cells (100X) (0-2/hpf)
[2022-03-22] MEDS: Enoxaparin Sodium 40 MG/0.4 ML SYRINGE SC SCH (09:50)
[2022-03-22] MEDS: Atorvastatin Calcium 40 MG TAB PO SCH (09:51)
[2022-03-22] MEDS: Famotidine 20 MG TAB PO SCH ×2 (09:51→22:00)
[2022-03-22] MEDS: Polyethylene Glycol 3350 17 GM Packet PO SCH (09:52)
[2022-03-22] MEDS: Ferrous Sulfate 325 MG TAB PO SCH ×2 (09:52→18:51)
[2022-03-22] MEDS: Ascorbic Acid 500 mg Chewable Tablet PO SCH ×2 (09:52→22:00)
[2022-03-22] MEDS: Senokot S 8.6-50 MG TAB PO SCH (09:52)
[2022-03-22] MEDS: Communication Order-Pharmacy FS SCH (09:53)
[2022-03-23] MEDS: HYDROcodone/Acetaminophen 10/325 mg Tablet PO SCH ×6 (02:27→21:05)
[2022-03-23] MEDS: Ibuprofen 200 MG TAB PO SCH ×2 (02:28→10:27)
[2022-03-23] MEDS: FLUoxetine HCl 20 MG CAP PO SCH (06:03)
[2022-03-23] MEDS: Ferrous Sulfate 325 MG TAB PO SCH ×2 (08:13→17:10)
[2022-03-23] MEDS: Enoxaparin Sodium 40 MG/0.4 ML SYRINGE SC SCH (08:13)
[2022-03-23] MEDS: Famotidine 20 MG TAB PO SCH ×2 (08:13→20:40)
[2022-03-23] MEDS: Ascorbic Acid 500 mg Chewable Tablet PO SCH ×2 (08:13→20:39)
[2022-03-23] MEDS: Gabapentin 400 MG CAP PO SCH ×2 (08:13→20:40)
[2022-03-23] MEDS: Atorvastatin Calcium 40 MG TAB PO SCH (08:13)
[2022-03-23] MEDS: Communication Order-Pharmacy FS SCH (10:28)
[2022-03-23] MEDS ORDERED: Acetaminophen 500 MG TAB PO SCH (11:00)
[2022-03-23 12:18] LABS: SARS-CoV-2 PCR by NAA Not Detected (NotDetected)
[2022-03-23] MEDS ORDERED: Ketorolac Tromethamine 30 MG/ML VIAL IVP SCH (13:00)
[2022-03-23] MEDS: Ketorolac Tromethamine 30 MG/ML VIAL IVP SCH ×2 (17:10→23:21)
[2022-03-24] MEDS: HYDROcodone/Acetaminophen 10/325 mg Tablet PO SCH ×6 (01:48→20:55)
[2022-03-24] MEDS: Ketorolac Tromethamine 30 MG/ML VIAL IVP SCH ×4 (05:51→23:52)
[2022-03-24] MEDS: FLUoxetine HCl 20 MG CAP PO SCH (05:51)
[2022-03-24] MEDS ORDERED: HYDROcodone/Acetaminophen 10/325 mg Tablet PO PRN (08:28)
[2022-03-24] MEDS: Famotidine 20 MG TAB PO SCH ×2 (09:21→20:54)
[2022-03-24] MEDS: Ascorbic Acid 500 mg Chewable Tablet PO SCH ×2 (09:21→20:53)
[2022-03-24] MEDS: Atorvastatin Calcium 40 MG TAB PO SCH (09:22)
[2022-03-24] MEDS: tiZANidine HCl 4 MG TAB PO SCH ×2 (09:22→20:55)
[2022-03-24] MEDS: Ferrous Sulfate 325 MG TAB PO SCH ×2 (09:22→17:10)
[2022-03-24] MEDS: Gabapentin 400 MG CAP PO SCH ×2 (09:22→20:54)
[2022-03-24] MEDS: Enoxaparin Sodium 40 MG/0.4 ML SYRINGE SC SCH (09:23)
[2022-03-24] MEDS: Communication Order-Pharmacy FS SCH (18:16)
[2022-03-25] MEDS: HYDROcodone/Acetaminophen 10/325 mg Tablet PO SCH ×5 (02:25→23:10)
[2022-03-25] MEDS: Ketorolac Tromethamine 30 MG/ML VIAL IVP SCH ×3 (05:25→18:43)
[2022-03-25] MEDS: FLUoxetine HCl 20 MG CAP PO SCH (05:26)
[2022-03-25] MEDS: Gabapentin 400 MG CAP PO SCH ×2 (09:15→20:18)
[2022-03-25] MEDS: Enoxaparin Sodium 40 MG/0.4 ML SYRINGE SC SCH (09:15)
[2022-03-25] MEDS: Acetaminophen 325 MG TAB PO SCH ×3 (09:16→20:17)
[2022-03-25] MEDS: Ferrous Sulfate 325 MG TAB PO SCH ×2 (09:17→18:43)
[2022-03-25] MEDS: Famotidine 20 MG TAB PO SCH ×2 (09:17→20:18)
[2022-03-25] MEDS: tiZANidine HCl 4 MG TAB PO SCH ×2 (09:17→20:18)
[2022-03-25] MEDS: Atorvastatin Calcium 40 MG TAB PO SCH (09:17)
[2022-03-25] MEDS: Ascorbic Acid 500 mg Chewable Tablet PO SCH ×2 (09:17→20:18)
[2022-03-25] MEDS: Communication Order-Pharmacy FS SCH (17:45)
[2022-03-26] MEDS: Acetaminophen 325 MG TAB PO SCH ×4 (01:28→20:02)
[2022-03-26] MEDS: HYDROcodone/Acetaminophen 10/325 mg Tablet PO SCH ×3 (06:22→17:41)
[2022-03-26] MEDS: FLUoxetine HCl 20 MG CAP PO SCH (06:23)
[2022-03-26] MEDS: Gabapentin 400 MG CAP PO SCH ×2 (09:14→20:03)
[2022-03-26] MEDS: tiZANidine HCl 4 MG TAB PO SCH ×2 (09:14→20:03)
[2022-03-26] MEDS: Atorvastatin Calcium 40 MG TAB PO SCH (09:15)
[2022-03-26] MEDS: Famotidine 20 MG TAB PO SCH ×2 (09:15→20:03)
[2022-03-26] MEDS: Enoxaparin Sodium 40 MG/0.4 ML SYRINGE SC SCH (09:15)
[2022-03-26] MEDS: Ascorbic Acid 500 mg Chewable Tablet PO SCH ×2 (09:15→20:03)
[2022-03-26] MEDS: Ferrous Sulfate 325 MG TAB PO SCH ×2 (09:15→17:42)
[2022-03-26] MEDS: Communication Order-Pharmacy FS SCH (14:57)
[2022-03-27] MEDS: HYDROcodone/Acetaminophen 10/325 mg Tablet PO SCH ×5 (00:04→23:09)
[2022-03-27] MEDS: Acetaminophen 325 MG TAB PO SCH ×4 (02:28→20:06)
[2022-03-27] MEDS: FLUoxetine HCl 20 MG CAP PO SCH (06:05)
[2022-03-27] MEDS: Atorvastatin Calcium 40 MG TAB PO SCH (08:56)
[2022-03-27] MEDS: tiZANidine HCl 4 MG TAB PO SCH ×2 (08:57→20:06)
[2022-03-27] MEDS: Ascorbic Acid 500 mg Chewable Tablet PO SCH ×2 (08:57→20:06)
[2022-03-27] MEDS: Ferrous Sulfate 325 MG TAB PO SCH ×2 (08:57→17:45)
[2022-03-27] MEDS: Gabapentin 400 MG CAP PO SCH ×2 (08:57→20:06)
[2022-03-27] MEDS: Enoxaparin Sodium 40 MG/0.4 ML SYRINGE SC SCH (08:58)
[2022-03-27 14:54] VITALS: BMI 35.0
[2022-03-28] MEDS: Acetaminophen 325 MG TAB PO SCH ×4 (02:18→18:24)
[2022-03-28] MEDS: FLUoxetine HCl 20 MG CAP PO SCH (06:25)
[2022-03-28] MEDS: HYDROcodone/Acetaminophen 10/325 mg Tablet PO SCH ×3 (06:25→18:24)
[2022-03-28] MEDS ORDERED: Ibuprofen 800 MG TAB PO PRN (08:44)
[2022-03-28] MEDS: Ascorbic Acid 500 mg Chewable Tablet PO SCH (09:07)
[2022-03-28] MEDS: Gabapentin 400 MG CAP PO SCH (09:07)
[2022-03-28] MEDS: Atorvastatin Calcium 40 MG TAB PO SCH (09:08)
[2022-03-28] MEDS: tiZANidine HCl 4 MG TAB PO SCH (09:08)
[2022-03-28] MEDS: Ferrous Sulfate 325 MG TAB PO SCH ×2 (09:08→18:24)
[2022-03-28] MEDS: Enoxaparin Sodium 40 MG/0.4 ML SYRINGE SC SCH (09:08)
[2022-03-28] MEDS ORDERED: HYDROcodone/Acetaminophen 10/325 mg Tablet PO PRN (10:31)
[2022-03-28] MEDS ORDERED: Magnesium Citrate 300 ML BOT PO SCH (11:15)
[2022-03-28 15:41] VITALS: BP 102/64; TEMP 98.1
== END 2022-03-28 19:25 | DRG 956 ==
LOC: ERS 12:27 → SDC 15:40 → CCU 18:52 → SJJU 03-17 13:54
PROVIDERS: ADMIT Surgery; ATTEND Surgery
PROC: 0QSB04Z Reposition Right Lower Femur with Internal Fixation Device, Open Approach (ICD-10-PCS; principal; 2022-03-16)
PROC: 0QSG04Z Reposition Right Tibia with Internal Fixation Device, Open Approach (ICD-10-PCS; 2022-03-16)
PROC: 0RSUXZZ Reposition Right Metacarpophalangeal Joint, External Approach (ICD-10-PCS; 2022-03-16)
PROC: 30233K1 Transfusion of Nonautologous Frozen Plasma into Peripheral Vein, Percutaneous Approach (ICD-10-PCS; 2022-03-16)
PROC: 30233L1 Transfusion of Nonautologous Fresh Plasma into Peripheral Vein, Percutaneous Approach (ICD-10-PCS; 2022-03-16)
PROC: 30233N1 Transfusion of Nonautologous Red Blood Cells into Peripheral Vein, Percutaneous Approach (ICD-10-PCS; 2022-03-16)
PROC: 30233R1 Transfusion of Nonautologous Platelets into Peripheral Vein, Percutaneous Approach (ICD-10-PCS; 2022-03-16)
PROC: 0PSH04Z Reposition Right Radius with Internal Fixation Device, Open Approach (ICD-10-PCS; 2022-03-18)
PROC: 0QHH36Z Insertion of Intramedullary Internal Fixation Device into Left Tibia, Percutaneous Approach (ICD-10-PCS; 2022-03-18)
DX: S72.451B Displaced supracondylar fracture without intracondylar extension of lower end of right femur, initial encounter for open fracture type I or II (principal); S52.501B Unspecified fracture of the lower end of right radius, initial encounter for open fracture type I or II; S82.831B Other fracture of upper and lower end of right fibula, initial encounter for open fracture type I or II; T79.4XXA Traumatic shock, initial encounter; J95.821 Acute postprocedural respiratory failure; M97.11XA Periprosthetic fracture around internal prosthetic right knee joint, initial encounter; Z20.822 Contact with and (suspected) exposure to COVID-19; S63.266A Dislocation of metacarpophalangeal joint of right little finger, initial encounter; I10 Essential (primary) hypertension; I25.10 Atherosclerotic heart disease of native coronary artery without angina pectoris; J43.9 Emphysema, unspecified; E78.5 Hyperlipidemia, unspecified; F17.210 Nicotine dependence, cigarettes, uncomplicated; I48.0 Paroxysmal atrial fibrillation; M10.9 Gout, unspecified; E78.00 Pure hypercholesterolemia, unspecified; Z96.651 Presence of right artificial knee joint; D64.9 Anemia, unspecified; K59.03 Drug induced constipation; T40.2X5A Adverse effect of other opioids, initial encounter; Y83.8 Other surgical procedures as the cause of abnormal reaction of the patient, or of later complication, without mention of misadventure at the time of the procedure; V29.40XA Motorcycle driver injured in collision with unspecified motor vehicles in traffic accident, initial encounter; Z86.73 Personal history of transient ischemic attack (TIA), and cerebral infarction without residual deficits; Z88.5 Allergy status to narcotic agent; Z95.0 Presence of cardiac pacemaker; Z95.5 Presence of coronary angioplasty implant and graft; Z79.899 Other long term (current) drug therapy
CPT/HCPCS: 36415; 36430; 70450; 71045; 71260; 72125; 72170; 74177; 76000; 80048; 80053; 82805; 83690; 83735; 84100; 84484; 85025; 85610; 85730; 86850; 86900; 86901; 90471; 93005; 93010; 94002; 94003; 94640; 96374; 96375; 96376; C1713; C1776; G0390; J0690; J0696; J1100; J1650; J1885; J2250; J2270; J2370; J2405; J2704; J2765; J3010; J3475; J3490; J7050; J7120; J7620; P9016; P9035; P9045; P9059; Q9967; S0020; S0028; U0002; U0003; U0005

== ENCOUNTER 2022-05-14 10:39 | Inpatient (IN) | payer MEDICARE ==
[2022-05-14 11:16] LABS: Hemoglobin 13.2 g/dL (14.0-18.0); Mean Corpuscular Hemoglobin 27.5 pg (27.0-31.0); Mean Corpuscular Volume 86.1 fL (78.0-98.0); Mean Platelet Volume 7.5 fL (7.4-10.4); Platelet Count 157 thou/uL (130-400); RBC Distribution Width 14.1 % (11.5-14.5); Red Blood Cell (RBC) Count 4.79 mill/uL (4.70-6.10); White Blood Cell (WBC) Count 23.5 thou/uL (4.8-10.8)
[2022-05-14 11:23] LABS: INR-International Normal Ratio 1.1; PTT 37.8 sec (22.9-36.1); Prothrombin Time 14.7 sec (12.0-14.7)
[2022-05-14 11:27] LABS: ALT (SGPT) 9 U/L (8-55); AST (SGOT) 7 U/L (5-34); Albumin 3.9 g/dL (3.4-4.8); Alkaline Phosphatase 137 U/L (40-110); Anion Gap 14 mmol/L (10-20); BUN (Urea Nitrogen) 21 mg/dL (8.4-25.7); Bilirubin, Total 1.4 mg/dL (0.2-1.2); Calc. Creatinine Clearance 0 mL/min (70-130); Calcium 10.7 mg/dL (7.8-10.44); Carbon Dioxide 24 mmol/L (23-31); Chloride 105 mmol/L (98-107); Globulin 3.2 g/dL (2.4-3.5); Glucose 142 mg/dL (80-115); Potassium 4.1 mmol/L (3.5-5.1); Protein, Total 7.1 g/dL (5.8-8.1); Sodium 139 mmol/L (136-145)
[2022-05-14] MEDS ORDERED: Morphine 4 MG/ML VIAL ONE ×2 (11:31→13:57)
[2022-05-14] MEDS ORDERED: Cefepime 2 GM VIAL ONE (11:31)
[2022-05-14] MEDS ORDERED: Ondansetron PF 4 MG/2 ML Vial ONE ×2 (11:31→15:59)
[2022-05-14 11:35] LABS: Magnesium 1.6 mg/dL (1.6-2.6)
[2022-05-14 11:37] LABS: Band 10 % (5-11); Eosinophils 1 % (0-10); Lymphocytes 2 % (21-51); MDiff Complete? YES; Monocytes 13 % (0-10); Neutrophil 71 % (42-75); Platelet Morphology Comment Appears Adequate; RBC Morphology Normal; Reactive Lymphocytes 3 % (0-10)
[2022-05-14] MEDS ORDERED: Vancomycin 1 GM/200 ML BAG ONE (13:09)
[2022-05-14 13:59] LABS: Lactic Acid 1.3 mmol/L (0.5-2.2)
[2022-05-14] MEDS ORDERED: Morphine 2 MG/ML VIAL ONE (15:59)
[2022-05-14] MEDS ORDERED: Ondansetron PF 4 MG/2 ML Vial IVP PRN (16:36)
[2022-05-14] MEDS ORDERED: Acetaminophen 325 MG TAB PO PRN (16:36)
[2022-05-14] MEDS ORDERED: Ondansetron ODT 4 MG TAB PO PRN (16:36)
[2022-05-14] MEDS ORDERED: hydrALAZINE 20 MG/ML VIAL SLOW IVP PRN (16:38)
[2022-05-14] MEDS ORDERED: Electrolyte Replacement Protocol 1 EACH FS SCH (16:45)
[2022-05-14] MEDS ORDERED: Sodium Chloride 0.9% 1,000 ML IV SCH (16:45)
[2022-05-14 17:15] VITALS: BMI 31.5
[2022-05-14] MEDS ORDERED: Magnesium 2 GM/50 ML(in water) 2 GM in Premix Bag 1 BAG IVPB SCH (18:15)
[2022-05-14] MEDS: Ferrous Sulfate 325 MG TAB PO SCH (19:10)
[2022-05-14] MEDS: Ascorbic Acid 500 mg Chewable Tablet PO SCH (20:30)
[2022-05-14] MEDS: Atorvastatin Calcium 40 MG TAB PO SCH (20:30)
[2022-05-14] MEDS: Gabapentin 300 MG CAP PO SCH (20:30)
[2022-05-14] MEDS: Morphine 2 MG/ML VIAL SLOW IVP PRN (20:35)
[2022-05-14] MEDS ORDERED: Vancomycin 1 GM in Premix Bag 1 BAG IVPB SCH (21:00)
[2022-05-15] MEDS: Morphine 2 MG/ML VIAL SLOW IVP PRN ×5 (00:16→21:09)
[2022-05-15] MEDS: Cefepime 2 GM in Sodium Chloride 0.9% 100 ML IVPB SCH ×2 (00:17→11:50)
[2022-05-15] MEDS: Vancomycin 1.5 GRAM/300 ML BAG 1.5 GM in Premix Bag 1 BAG IVPB SCH ×2 (05:08→16:53)
[2022-05-15 05:36] LABS: #Eosinphils 0.2 thou/uL (0.0-0.7); #Lymphocytes 0.9 thou/uL (1.20-3.40); #Neutrophils 10.8 thou/uL (1.40-6.50); %Basophils 0.2 % (0.0-1.0); %Eosinophils 1.7 % (0.0-10.0); %Lymphocytes 6.6 % (21.0-51.0); %Neutrophils 77.5 % (42.0-75.0); Hemoglobin 11.6 g/dL (14.0-18.0); Mean Corpuscular HGB CONC 31.7 g/dL (32.0-36.0); Mean Corpuscular Hemoglobin 27.9 pg (27.0-31.0); Mean Corpuscular Volume 88.2 fL (78.0-98.0); Mean Platelet Volume 7.8 fL (7.4-10.4); Platelet Count 121 thou/uL (130-400); Red Blood Cell (RBC) Count 4.14 mill/uL (4.70-6.10); White Blood Cell (WBC) Count 13.9 thou/uL (4.8-10.8)
[2022-05-15 05:59] LABS: Anion Gap 12 mmol/L (10-20); BUN (Urea Nitrogen) 19 mg/dL (8.4-25.7); Calc. Creatinine Clearance 123 mL/min (70-130); Calcium 9.7 mg/dL (7.8-10.44); Carbon Dioxide 24 mmol/L (23-31); Chloride 105 mmol/L (98-107); Glucose 130 mg/dL (80-115); Magnesium 1.9 mg/dL (1.6-2.6); Potassium 3.8 mmol/L (3.5-5.1); Sodium 137 mmol/L (136-145)
[2022-05-15] MEDS ORDERED: Magnesium 2 GM/50 ML(in water) 2 GM in Premix Bag 1 BAG IVPB SCH (08:00)
[2022-05-15] MEDS: Aspirin 325 mg Enteric Coated Tablet PO SCH (08:54)
[2022-05-15] MEDS: Ascorbic Acid 500 mg Chewable Tablet PO SCH ×2 (08:54→21:09)
[2022-05-15] MEDS: Ferrous Sulfate 325 MG TAB PO SCH ×2 (08:54→17:12)
[2022-05-15] MEDS: FLUoxetine HCl 20 MG CAP PO SCH (09:00)
[2022-05-15] MEDS ORDERED: Atorvastatin Calcium 40 MG TAB PO SCH (09:00)
[2022-05-15] MEDS: Gabapentin 300 MG CAP PO SCH ×3 (09:00→21:08)
[2022-05-15] MEDS: Amlodipine 5 MG TAB PO SCH (09:02)
[2022-05-15] MEDS ORDERED: Lidocaine 1% MPF 2 ML VIAL ONE (13:15)
[2022-05-15] MEDS ORDERED: Neomycin-Polymyxin 1 ML AMP ONE (14:04)
[2022-05-15] MEDS ORDERED: PHENYLEPHRINE-NS 100 MCG/ML 10 ML SYRINGE ONE (14:21)
[2022-05-15] MEDS ORDERED: Dexamethasone 20 MG/5 ML VIAL ONE (14:21)
[2022-05-15] MEDS ORDERED: Lidocaine 1% PF 5 ML VIAL ONE (14:21)
[2022-05-15] MEDS ORDERED: Ondansetron PF 4 MG/2 ML Vial ONE (14:21)
[2022-05-15] MEDS ORDERED: PROPOFOL 200 MG/20 ML VIAL ONE (14:21)
[2022-05-15] MEDS ORDERED: fentaNYL Citrate/PF 100 MCG/2 ML SYRINGE ONE (14:27)
[2022-05-15] MEDS ORDERED: Promethazine HCl 25 MG/ML VIAL IM PRN (14:49)
[2022-05-15] MEDS ORDERED: Promethazine HCl 25 MG/ML VIAL IVPB PRN (14:49)
[2022-05-15] MEDS ORDERED: Ondansetron HCl/PF 4 MG/2 ML Vial IVP PRN (14:49)
[2022-05-15 18:39] LABS: Bilirubin Negative (Negative); Blood, Urine Negative (Negative); Clarity Turbid (Clear); Glucose, Urine (Dipstick) Normal (Negative); Ketone, Urine Negative (Negative); Leukocyte 25 Leu/uL (Negative); Mucous/LPF Rare LPF (<2+); Nitrite Negative (Negative); Protein, Urine (Dipstick) 30 mg/dL (Neg-Trace); Specific Gravity, Urine 1.028 (1.002-1.036); Squamous Epithelial 0-3 HPF (0-3); Urobilinogen Normal mg/dL (Less than 2); pH, Urine 5.5 (5.0-9.0)
[2022-05-15 18:50] LABS: Bacteria/HPF 1+ HPF (None Seen)
[2022-05-15 18:51] LABS: Urine Culture Reflex Yes Yes
[2022-05-15] MEDS: Atorvastatin Calcium 40 MG TAB PO SCH (21:08)
[2022-05-16] MEDS: Morphine 2 MG/ML VIAL SLOW IVP PRN ×2 (00:21→07:27)
[2022-05-16] MEDS: Cefepime 2 GM in Sodium Chloride 0.9% 100 ML IVPB SCH ×2 (00:21→10:51)
[2022-05-16] MEDS: Vancomycin 1.5 GRAM/300 ML BAG 1.5 GM in Premix Bag 1 BAG IVPB SCH ×2 (02:52→13:42)
[2022-05-16 05:52] LABS: #Lymphocytes 0.8 thou/uL (1.20-3.40); #Monocytes 0.5 thou/uL (0.11-0.59); #Neutrophils 8.3 thou/uL (1.40-6.50); %Basophils 0.1 % (0.0-1.0); %Eosinophils 0.1 % (0.0-10.0); %Lymphocytes 8.1 % (21.0-51.0); %Monocytes 5.1 % (0.0-10.0); %Neutrophils 86.6 % (42.0-75.0); Hemoglobin 11.9 g/dL (14.0-18.0); Mean Corpuscular HGB CONC 31.4 g/dL (32.0-36.0); Mean Corpuscular Hemoglobin 27.8 pg (27.0-31.0); Mean Corpuscular Volume 88.6 fL (78.0-98.0); Mean Platelet Volume 8.1 fL (7.4-10.4); Platelet Count 144 thou/uL (130-400); RBC Distribution Width 13.9 % (11.5-14.5); Red Blood Cell (RBC) Count 4.28 mill/uL (4.70-6.10); White Blood Cell (WBC) Count 9.5 thou/uL (4.8-10.8)
[2022-05-16 06:38] LABS: Anion Gap 15 mmol/L (10-20); BUN (Urea Nitrogen) 23 mg/dL (8.4-25.7); Calc. Creatinine Clearance 141 mL/min (70-130); Calcium 9.9 mg/dL (7.8-10.44); Carbon Dioxide 21 mmol/L (23-31); Chloride 107 mmol/L (98-107); Estimated GFR 99; Glucose 149 mg/dL (80-115); Potassium 4.5 mmol/L (3.5-5.1); Sodium 138 mmol/L (136-145)
[2022-05-16] MEDS: Ferrous Sulfate 325 MG TAB PO SCH (07:28)
[2022-05-16] MEDS: FLUoxetine HCl 20 MG CAP PO SCH (08:40)
[2022-05-16] MEDS: Gabapentin 300 MG CAP PO SCH ×2 (08:41→14:31)
[2022-05-16] MEDS: Amlodipine 5 MG TAB PO SCH (08:41)
[2022-05-16] MEDS: Ascorbic Acid 500 mg Chewable Tablet PO SCH (08:41)
[2022-05-16] MEDS: Aspirin 325 mg Enteric Coated Tablet PO SCH (08:41)
[2022-05-16] MEDS ORDERED: Sulfameth/Trimethoprim DS 800-160mg TAB PO SCH (09:00)
[2022-05-16] MEDS ORDERED: HYDROcodone/Acetaminophen 7.5/325 mg Tablet PO SCH (15:15)
[2022-05-16 15:43] VITALS: BP 129/62; TEMP 98.3
== END 2022-05-16 15:35 | disposition home or self-care (01) | DRG 872 ==
LOC: ERS 10:39 → ERHOLD 13:46 → SURG A 16:12
PROVIDERS: ADMIT Family Medicine; ATTEND Internal Medicine
PROC: 0HBKXZZ Excision of Right Lower Leg Skin, External Approach (ICD-10-PCS; principal; 2022-05-15)
PROC: 0H9HXZZ Drainage of Right Upper Leg Skin, External Approach (ICD-10-PCS; 2022-05-15)
DX: A41.9 Sepsis, unspecified organism (principal); L03.115 Cellulitis of right lower limb; I10 Essential (primary) hypertension; J44.9 Chronic obstructive pulmonary disease, unspecified; I25.10 Atherosclerotic heart disease of native coronary artery without angina pectoris; E78.5 Hyperlipidemia, unspecified; M10.9 Gout, unspecified; F31.9 Bipolar disorder, unspecified; Z20.822 Contact with and (suspected) exposure to COVID-19; Z96.651 Presence of right artificial knee joint; Z95.5 Presence of coronary angioplasty implant and graft; Z86.73 Personal history of transient ischemic attack (TIA), and cerebral infarction without residual deficits; Z95.0 Presence of cardiac pacemaker; Z98.890 Other specified postprocedural states; Z88.5 Allergy status to narcotic agent; Z79.899 Other long term (current) drug therapy; Z79.82 Long term (current) use of aspirin; Z79.891 Long term (current) use of opiate analgesic; Z87.891 Personal history of nicotine dependence
CPT/HCPCS: 36415; 71045; 80048; 80053; 80202; 81001; 83605; 83735; 85025; 85610; 85730; 87040; 87070; 87086; 87205; 93005; 94760; 96365; 96366; 96367; 96375; 96376; J0692; J1100; J2270; J2405; J2704; J3370; J3475; J3490; J7050; U0003; U0005

== ENCOUNTER 2022-06-15 11:22 | Emergency (ER) | payer MEDICARE ==
[2022-06-15] MEDS ORDERED: Morphine 4 MG/ML VIAL ONE (12:49)
[2022-06-15] MEDS ORDERED: Ondansetron ODT 4 MG TAB ONE (12:49)
== END 2022-06-15 14:04 | disposition home or self-care (01) ==
LOC: ERS 11:22
DX: M21.861 Other specified acquired deformities of right lower leg (principal); M79.604 Pain in right leg; W18.30XA Fall on same level, unspecified, initial encounter
CPT/HCPCS: 96372; J2270; Q0162

== ENCOUNTER 2022-11-28 16:53 | Emergency (ER) | payer MEDICARE ==
[2022-11-28] MEDS ORDERED: Morphine 4 MG/ML VIAL ONE ×2 (17:54→19:42)
[2022-11-28 18:32] LABS: #Lymphocytes 0.8 thou/uL (1.20-3.40); #Monocytes 1.3 thou/uL (0.11-0.59); #Neutrophils 11.8 thou/uL (1.40-6.50); %Basophils 0.3 % (0.0-1.0); %Eosinophils 0.1 % (0.0-10.0); %Lymphocytes 5.4 % (21.0-51.0); %Monocytes 9.4 % (0.0-10.0); %Neutrophils 84.8 % (42.0-75.0); Hemoglobin 14.7 g/dL (14.0-18.0); Mean Corpuscular HGB CONC 33.2 g/dL (32.0-36.0); Mean Corpuscular Hemoglobin 27.6 pg (27.0-31.0); Mean Platelet Volume 8.1 fL (7.4-10.4); Platelet Count 141 10x3/uL (130-400); RBC Distribution Width 14.5 % (11.5-14.5); Red Blood Cell (RBC) Count 5.33 mill/uL (4.70-6.10); White Blood Cell (WBC) Count 13.9 10x3/uL (4.8-10.8)
[2022-11-28 18:54] LABS: ALT (SGPT) 11 U/L (8-55); AST (SGOT) 13 U/L (5-34); Albumin 4.4 g/dL (3.4-4.8); Alkaline Phosphatase 93 U/L (40-110); Anion Gap 13 mmol/L (10-20); BUN (Urea Nitrogen) 23 mg/dL (8.4-25.7); Calc. Creatinine Clearance 0 mL/min (70-130); Calcium 10.9 mg/dL (7.8-10.44); Carbon Dioxide 24 mmol/L (23-31); Chloride 103 mmol/L (98-107); Estimated GFR 57; Globulin 3.3 g/dL (2.4-3.5); Glucose 125 mg/dL (80-115); Lipase 8 U/L (8-78); Magnesium 1.8 mg/dL (1.6-2.6); Potassium 4.5 mmol/L (3.5-5.1); Protein, Total 7.7 g/dL (5.8-8.1); Sodium 135 mmol/L (136-145)
[2022-11-28 19:30] LABS: Bacteria/HPF 2+ HPF (None Seen); Bilirubin Negative (Negative); Blood, Urine 1+ (Negative); Clarity Clear (Clear); Glucose, Urine (Dipstick) Normal (Negative); Ketone, Urine Negative (Negative); Leukocyte 250 Leu/uL (Negative); Mucous/LPF Rare LPF (<2+); Nitrite Negative (Negative); Protein, Urine (Dipstick) 50 mg/dL (Neg-Trace); Specific Gravity, Urine 1.023 (1.002-1.036); Squamous Epithelial 0-3 HPF (0-3); WBC/HPF 21-50 HPF (0-3); pH, Urine 6.5 (5.0-9.0)
[2022-11-28 20:18] LABS: SARS-CoV-2 NAA Rapid Test DETECTED (NotDetected)
[2022-11-28] MEDS ORDERED: cefTRIAXone\\ROCEPHIN 1 GM VIAL ONE (20:33)
== END 2022-11-28 22:47 | disposition home or self-care (01) ==
LOC: ERS 16:53
DX: U07.1 COVID-19 (principal); R07.9 Chest pain, unspecified; N39.0 Urinary tract infection, site not specified; N13.2 Hydronephrosis with renal and ureteral calculous obstruction; E78.00 Pure hypercholesterolemia, unspecified; I10 Essential (primary) hypertension; Z79.82 Long term (current) use of aspirin; Z79.899 Other long term (current) drug therapy; Z87.891 Personal history of nicotine dependence
CPT/HCPCS: 71045; 71275; 74176; 80053; 83605; 83690; 83735; 83880; 84484; 85025; 85379; 87040; 87077; 87086; 93005; U0002; U0003; U0005; 36415; 51702; 81003; 81015; 87186; 96374; 96375; 96376; J0696; J2270; Q9967

== ENCOUNTER 2023-05-09 12:23 | Outpatient (CLI) | payer MEDICARE | END 2023-05-09 12:24 | disposition home or self-care (01) | LOC: CT 12:23 | PROVIDERS: ATTEND Psychiatry & Neurology Neurology | DX: I69.954 Hemiplegia and hemiparesis following unspecified cerebrovascular disease affecting left non-dominant side (principal) | CPT/HCPCS: 70496; 70498; 82565 ==

== ENCOUNTER 2023-10-21 10:40 | Outpatient (CLI) | payer MEDICARE | END 2023-10-21 10:41 | disposition home or self-care (01) | LOC: RAD 10:40 | PROVIDERS: ATTEND Family Medicine | DX: M25.551 Pain in right hip (principal) ==

== ENCOUNTER 2024-02-16 20:07 | Inpatient (IN) | payer MEDICARE ==
[~2024-02-16 20:07] MED LIST changes: -Iopamidol-370 76% 500 ML 1 ML ONE; +Iopamidol-370 76% 500 ML MDV (1 ML CHARGE) ONE
[2024-02-16] MEDS ORDERED: niCARdipine 25 MG/10 ML SDV ONE (20:44)
[2024-02-16] MEDS ORDERED: Ondansetron PF 4 MG/2 ML Vial ONE (20:59)
[2024-02-16] MEDS ORDERED: KETAMINE 100 MG/ML (5ML VIAL) ONE (21:13)
[2024-02-16] MEDS ORDERED: Ketamine In 0.9 % NaCl 50 MG/5 ML SYRINGE ONE (21:13)
[2024-02-16] MEDS ORDERED: fentaNYL 50 mcg/mL 1 mL Vial ONE (21:13)
[2024-02-16] MEDS ORDERED: Rocuronium Bromide 10 MG/ML (10ML VIAL) ONE (21:14)
[2024-02-16 21:21] LABS: #Basophils 0.03 10x3/uL (0.0-0.2); #Eosinphils Less than 0.03 10x3/uL (0.0-0.7); %Basophils 0.3 % (0.0-1.0); %Lymphocytes 7.1 % (21.0-51.0); %Monocytes 8.3 % (0.0-10.0); %Neutrophils 83.9 % (42.0-75.0); Hematocrit 39.5 % (42.0-52.0); Hemoglobin 13.1 g/dL (14.0-18.0); Mean Corpuscular HGB CONC 33.2 g/dL (32.0-36.0); Mean Corpuscular Hemoglobin 27.8 pg (27.0-31.0); Mean Corpuscular Volume 83.7 fL (78.0-98.0); Mean Platelet Volume 9.2 fL (7.4-10.4); Platelet Count 247 10x3/uL (130-400); Red Blood Cell (RBC) Count 4.72 mill/uL (4.70-6.10)
[2024-02-16] MEDS ORDERED: Propofol 1,000 MG/100 ML VIAL IV ONE (21:33)
[2024-02-16 21:37] LABS: ALT (SGPT) 11 U/L (8-55); AST (SGOT) 19 U/L (5-34); Albumin 4.2 g/dL (3.4-4.8); Alkaline Phosphatase 172 U/L (40-110); Anion Gap 18 mmol/L (10-20); BUN (Urea Nitrogen) 13 mg/dL (8.4-25.7); Bilirubin, Total 1.2 mg/dL (0.2-1.2); Calc. Creatinine Clearance 0 mL/min (70-130); Calcium 10.4 mg/dL (7.8-10.44); Carbon Dioxide 18 mmol/L (23-31); Chloride 105 mmol/L (98-107); Estimated GFR 83; Globulin 3.1 g/dL (2.4-3.5); Glucose 143 mg/dL (80-115); Potassium 4.6 mmol/L (3.5-5.1); Protein, Total 7.3 g/dL (5.8-8.1); Sodium 136 mmol/L (136-145)
[2024-02-16 21:38] LABS: Acetaminophen Less than 10 mcg/mL (10.0-30.0); Alcohol Less than 10.0 mg/dL (Less than 10); Salicylate Less than 8.0 mg/dL (15.0-30.0)
[2024-02-16 21:39] LABS: Troponin I 0.019 ng/mL (< 0.028)
[2024-02-16 21:45] LABS: INR-International Normal Ratio 1.1
[2024-02-16 21:53] LABS: Analyzer IN Cardio ER; Base Excess (BEa) -0.9 mEq/L (-2.0 to +3.0); CO2 Tension 35.9 mmHg (35.0-45.0); Carboxyhemoglobin (COHb) 0.4 gm% (0.0-3.0); Hematocrit-ABG 40 % (42.0-52.0); Hemoglobin (Hb) 13.7 g/dL (14.0-18.0); O2 Tension (PaO2), arterial 161.4 mmHg (> 80.0); Potassium - ABG Lab 3.92 mmol/L (3.70-5.30); pH, Arterial 7.424 (7.35-7.45)
[2024-02-16 21:58] LABS: ALV-art Gradient 150.225 mmHg (0-20); Puncture Site LRA
[2024-02-16] MEDS ORDERED: niCARdipine 25 MG in Sodium Chloride 0.9% 250 ML 250 ML IVPB SCH (22:00)
[2024-02-16 22:09] LABS: INR-International Normal Ratio 1.1; Prothrombin Time 14.1 sec (12.0-14.7)
[2024-02-16 22:10] LABS: PTT 30.6 sec (22.9-36.1)
[2024-02-16] MEDS ORDERED: Electrolyte Replacement Protocol 1 EACH IVPB PRN (22:10)
[2024-02-16] MEDS ORDERED: Acetaminophen 325 MG (10.15 ML) UDCUP PO PRN (22:10)
[2024-02-16] MEDS ORDERED: Acetaminophen 650 MG Suppository PR PRN ×2 (22:10→22:14)
[2024-02-16] MEDS ORDERED: Ventilator Sedation Protocol 1 EACH FS SCH (22:15)
[2024-02-16 22:19] LABS: Bacteria/HPF None Seen HPF (None Seen); Bilirubin Negative (Negative); Blood, Urine 3+ (Negative); CAUTI Indications for Culture Alt mental st,lethar; Clarity Clear (Clear); Glucose, Urine (Dipstick) Normal (Negative); Ketone, Urine Negative (Negative); Leukocyte Negative Leu/uL (Negative); Nitrite Negative (Negative); Protein, Urine (Dipstick) 20 mg/dL (Neg-Trace); RBC/HPF 21-50 HPF (0-3); Specific Gravity, Urine 1.019 (1.002-1.036); Urobilinogen Normal mg/dL (Less than 2); WBC/HPF 0-3 HPF (0-3)
[2024-02-16 22:26] LABS: Urine Culture Reflex No No
[2024-02-16 22:27] LABS: Amphetamine Not Detected (NotDetected); Barbiturates Screen Not Detected (NotDetected); Benzodiazepine Screen Not Detected (NotDetected); Cocaine Metabolite Screen Not Detected (NotDetected); Methadone Not Detected (NotDetected); Methamphetamine Not Detected (NotDetected); Opiate Screen Detected (NotDetected); Oxycodone Screen Not Detected (NotDetected); Phencyclidine (PCP) Not Detected (NotDetected); THC/Cannabinoid Screen Not Detected (NotDetected); Tricyclic Screen Not Detected (NotDetected)
[2024-02-16] MEDS ORDERED: Fentanyl BOLUS 250 ML IVPB PRN (22:45)
[2024-02-16] MEDS ORDERED: DISCONTINUE PREVIOUS NARCOTIC PAIN MEDICATIONS AND BENZODIAZEPINES FS SCH (22:45)
[2024-02-16] MEDS ORDERED: Morphine 2 MG/ML VIAL SLOW IVP PRN (22:45)
[2024-02-16] MEDS ORDERED: Lorazepam 2 MG/ML VIAL SLOW IVP PRN (22:45)
[2024-02-16] MEDS ORDERED: Propofol BOLUS 1,000 MG/100 ML VIAL IV PRN (22:45)
[2024-02-16] MEDS ORDERED: Labetalol HCl 100 MG/20 ML VIAL SLOW IVP PRN ×2 (22:51→23:41)
[2024-02-16] MEDS ORDERED: CEFAZOLIN 2 GM VIAL ONE (22:56)
[2024-02-16] MEDS ORDERED: levETIRAcetam 500 MG (5 mL) VIAL ONE (22:56)
[2024-02-16] MEDS ORDERED: Labetalol HCl 100 MG/20 ML VIAL ONE (23:09)
[2024-02-16] MEDS: Fentanyl CADD 100 ML IV SCH (23:55)
[2024-02-16] MEDS: LORazepam 2 MG/ML SYR.(CARPUJECT) SLOW IVP PRN (23:58)
[2024-02-17] MEDS: niCARdipine 50 MG in Sodium Chloride 0.9% 250 ML 230 ML IVPB SCH (00:02)
[2024-02-17] MEDS: Propofol 1,000 MG/100 ML VIAL IV PRN (00:29)
[2024-02-17] MEDS: NOREPINEPHRINE 8 MG/250 ML-D5W 250 ML IVPB SCH (00:45)
[2024-02-17 01:26] VITALS: BMI 37.3
[2024-02-17] MEDS: Aminocaproic Acid 5 GM in Sodium Chloride 0.9% 250 ML 250 ML IV SCH ×2 (01:48→09:06)
[2024-02-17] MEDS: Lactated Ringer's 1,000 ML IV SCH (01:56)
[2024-02-17] MEDS: Water For Inject, Bacteriostat 0 ML ONE (02:04)
[2024-02-17] MEDS: Sterile Water 10 ML ONE (02:06)
[2024-02-17] MEDS: CEFAZOLIN 2 GM in Sodium Chloride 0.9% 100 ML IVPB SCH (02:08)
[2024-02-17] MEDS: niMODipine 30 MG CAP PO SCH (02:09)
[2024-02-17] MEDS: Vasopressin 20 UNITS in Sodium Chloride 0.9% 50 ML IV SCH (03:14)
[2024-02-17] MEDS: NOREPINEPHRINE 8 MG/250 ML-D5W 250 ML ONE (03:14)
[2024-02-17 03:33] LABS: #Basophils 0.05 10x3/uL (0.0-0.2); #Eosinphils Less than 0.03 10x3/uL (0.0-0.7); %Basophils 0.3 % (0.0-1.0); %Lymphocytes 12.3 % (21.0-51.0); %Monocytes 12.7 % (0.0-10.0); %Neutrophils 74.1 % (42.0-75.0); Hematocrit 38.3 % (42.0-52.0); Hemoglobin 12.6 g/dL (14.0-18.0); Mean Corpuscular HGB CONC 32.9 g/dL (32.0-36.0); Mean Corpuscular Hemoglobin 27.3 pg (27.0-31.0); Mean Corpuscular Volume 83.1 fL (78.0-98.0); Platelet Count 309 10x3/uL (130-400); RBC Distribution Width 13.2 % (11.5-14.5); Red Blood Cell (RBC) Count 4.61 mill/uL (4.70-6.10)
[2024-02-17 03:56] LABS: Anion Gap 15 mmol/L (10-20); BUN (Urea Nitrogen) 12 mg/dL (8.4-25.7); Calc. Creatinine Clearance 112 mL/min (70-130); Calcium 10.2 mg/dL (7.8-10.44); Carbon Dioxide 21 mmol/L (23-31); Chloride 105 mmol/L (98-107); Estimated GFR 80; Glucose 175 mg/dL (80-115); Potassium 4.3 mmol/L (3.5-5.1); Sodium 137 mmol/L (136-145)
[2024-02-17 03:57] LABS: Lactic Acid 1.3 mmol/L (0.5-2.2)
[2024-02-17 06:18] VITALS: BP 109/48
[2024-02-17] MEDS ORDERED: Phenylephrine 40 MG in Sodium Chloride 0.9% 250 ML 250 ML IVPB SCH (06:30)
[2024-02-17 06:37] LABS: Actual Bicarbonate (HCO3a) 22.1 mEq/L (22-28); Base Excess (BEa) -2.8 mEq/L (-2.0 to +3.0); CO2 Tension 38.5 mmHg (35.0-45.0); Calcium, Ionized (arterial) 1.25 mmol/L (1.12-1.30); Carboxyhemoglobin (COHb) 0.7 gm% (0.0-3.0); Hematocrit-ABG 38 % (42.0-52.0); Hemoglobin (Hb) 12.8 g/dL (14.0-18.0); O2 Tension (PaO2), arterial 82.2 mmHg (> 80.0); Potassium - ABG Lab 3.63 mmol/L (3.70-5.30); pH, Arterial 7.376 (7.35-7.45)
[2024-02-17] MEDS ORDERED: niCARdipine 50 MG, Admixture Fee 1 EACH in Sodium Chloride 0.9% 250 ML 230 ML IVPB SCH (07:00)
[2024-02-17 07:17] LABS: Puncture Site ALINE
[2024-02-17 07:18] LABS: ALV-art Gradient 154.875 mmHg (0-20)
[2024-02-17 08:44] VITALS: TEMP 98.9
[2024-02-17] MEDS: levETIRAcetam 500 MG (5 mL) VIAL SLOW IVP SCH (09:36)
[2024-02-17] MEDS: Famotidine/PF 20 mg/2ml Vial SLOW IVP SCH (09:36)
[2024-02-17] MEDS ORDERED: Sterile Water 10 ML ONE (10:57)
== END 2024-02-17 12:00 | disposition short-term general hospital (02) | DRG 23 ==
LOC: ERS 20:07 → CCU 22:28
PROVIDERS: ADMIT Student in an Organized Health Care Education/Training Program; ATTEND Emergency Medicine
PROC: 0BH17EZ Insertion of Endotracheal Airway into Trachea, Via Natural or Artificial Opening (ICD-10-PCS; principal; 2024-02-16)
PROC: 009 Central Nervous System and Cranial Nerves, Drainage (ICD-10-PCS; 2024-02-16)
PROC: 4A133R1 Monitoring of Arterial Saturation, Peripheral, Percutaneous Approach (ICD-10-PCS; 2024-02-16)
PROC: 06HY33Z Insertion of Infusion Device into Lower Vein, Percutaneous Approach (ICD-10-PCS; 2024-02-17)
PROC: 03HY32Z Insertion of Monitoring Device into Upper Artery, Percutaneous Approach (ICD-10-PCS; 2024-02-17)
PROC: 4A133B1 Monitoring of Arterial Pressure, Peripheral, Percutaneous Approach (ICD-10-PCS; 2024-02-17)
PROC: 4A133J1 Monitoring of Arterial Pulse, Peripheral, Percutaneous Approach (ICD-10-PCS; 2024-02-17)
PROC: 3E043XZ Introduction of Vasopressor into Central Vein, Percutaneous Approach (ICD-10-PCS; 2024-02-17)
PROC: 5A1935Z Respiratory Ventilation, Less than 24 Consecutive Hours (ICD-10-PCS; 2024-02-17)
DX: I60.9 Nontraumatic subarachnoid hemorrhage, unspecified (principal); J96.00 Acute respiratory failure, unspecified whether with hypoxia or hypercapnia; J98.11 Atelectasis; G93.40 Encephalopathy, unspecified; G91.9 Hydrocephalus, unspecified; Z88.5 Allergy status to narcotic agent; Z79.82 Long term (current) use of aspirin; Z79.899 Other long term (current) drug therapy; E78.5 Hyperlipidemia, unspecified; J44.9 Chronic obstructive pulmonary disease, unspecified; M10.9 Gout, unspecified; Z98.890 Other specified postprocedural states; I48.91 Unspecified atrial fibrillation; E78.00 Pure hypercholesterolemia, unspecified; Z87.891 Personal history of nicotine dependence; I10 Essential (primary) hypertension; F31.9 Bipolar disorder, unspecified
CPT/HCPCS: 36416; 36600; 70450; 70496; 71045; 80048; 80053; 80306; 80307; 81001; 82533; 82805; 83605; 84484; 85025; 85610; 85730; 93005; 94002; 94003; J1953; J2060; J2405; J2704; J3010; J3490; J7050; J7120; Q9967; S0017; S0028